=== PATIENT | female | born 1975 | race Caucasian/White ===

== ENCOUNTER 2019-10-24 17:01 | Outpatient (CLI) | payer OTHER, SELFPAY ==
--- NOTE | ~2019-10-24 | MM_ITS ---
EXAMINATION: MM screening grey BI w new HISTORY: Screening mammogram TECHNIQUE: Craniocaudal and mediolateral oblique 3-D tomosynthesis images were obtained and synthetic 2-D images were generated. CAD analysis was submitted and interpreted. COMPARISON: Comparison to multiple prior studies sequentially, with oldest reviewed study dated 07/28. BREAST PARENCHYMAL COMPOSITION: The breasts are heterogeneously dense, which may obscure small masses . FINDINGS: There is no evidence of suspicious mass, calcification, or architectural distortion to sugg est malignancy in either breast. There has been no suspicious interval change. IMPRESSION: 1. No mammographic evidence of malignancy. 2. Recommend routine screening mammography in one year. BI-RADS Category 1: Negative Reviewed, dictated and finalized at location A. ING BALL MARKER
== END 2019-10-24 17:02 | disposition home or self-care (01) ==
PROVIDERS: PCP Internal Medicine; Referring Provider Obstetrics & Gynecology; Visit Provider Physician Assistant
DX: Z12.31 Encounter for screening mammogram for malignant neoplasm of breast (principal)
CPT/HCPCS: 77063; 77067

== ENCOUNTER 2020-07-03 06:56 | Outpatient (NON) | payer OTHER, SELFPAY ==
[2020-07-03 20:28] LABS: SARS-CoV-2 RNA PCR Positive
== END 2020-07-03 06:57 ==
LOC: ANHCOVIDDT 06:56
PROVIDERS: PCP Internal Medicine; Visit Provider Physician Assistant
DX: U07.1 COVID-19 (principal)
CPT/HCPCS: 87635; C9803; U0003

== ENCOUNTER 2020-07-04 11:21 | Emergency (ER) | payer OTHER, SELFPAY ==
--- NOTE | ~2020-07-04 | XR_ITS ---
EXAMINATION: XR chest 1V portable INDICATION: Shortness of breath, COVID 19 positive TECHNIQUE: Portable AP chest at 1144 hours COMPARISON: 10/23/2018 FINDINGS: There are minimal airspace opacities of the lung bases. No pleural effusion or pneumothorax is identified. The cardiomediastinal silhouette is normal. There is thoracic dextrocurvature. IMPRESSION: 1. Minimal airspace opacities of the lung bases, consistent with atelectasis versus pneumonia. Reviewed, dictated and finalized at location A. A RELATIONS COORDINATOR IMPRESSION: 1. Minimal airspace opacities of the lung bases, consistent with atelectasis ve rsus pneumonia.
[2020-07-04 11:30] VITALS: PULSE 135; RESP 17; TEMP 38.6; O2SAT 95
--- NOTE | 2020-07-04 11:31 | ECG_ITS ---
Measurements Intervals [place] Rate: 105 P: 65 UT: 145 QRS: 63 QRSD: 78 T: 21 QT: 339 QTc: 449 Interpretive Statements SINUS TACHYCARDIA BORDERLINE ST-T WAVE ABNORMALITY- INFERIOR LEADS ABNORMAL ECG Electronically Signed On 07-04-2020 16:08:12 CRYSTAL CUTTER by Alvaro Barnett D.O.
[2020-07-04 11:43] VITALS: BP 133/99; PULSE 124; RESP 24; TEMP 38.6; O2SAT 95
[2020-07-04 11:50] LABS: Basophils Percent Auto 0.3 % (0.2-1.2); Hematocrit 40.9 % (37.0-47.0); Hemoglobin 13.5 g/dL (12.0-15.0); Immature Granulocyte Absolute 0.02 K/mm3 (0.00-0.031); Immature Granulocyte Percent A 0.3 % (0-0.5); Immature Platelet Fraction Pct 3.8 % (0.9-11.2); Lymphocytes Absolute Auto 0.49 K/mm3 (0.9-3.2); Lymphocytes Percent Auto 7.6 % (18.3-44.2); Mean Corpuscular Hemoglobin 31.1 pg (26-34); Mean Corpuscular Volume 94.2 fl (80-100); Mean Platelet Volume 10.7 fl (7.4-10.4); Monocytes Absolute Auto 0.5 K/mm3 (0.1-0.6); Monocytes Percent Auto 7.4 % (2.6-8.5); Neutrophils Absolute Auto 5.5 K/mm3 (1.3-6.7); Neutrophils Percent Auto 84.4 % (45.5-73.1); Platelet Count Result 129 k/mm3 (150-375); Red Blood Count 4.34 M/mm3 (4.2-5.4); Red Cell Distribution Width 12.8 % (11.5-14.5); White Blood Count 6.5 K/mm3 (4.5-10.0)
[2020-07-04 12:01] LABS: Prothrombin Time 13.5 Seconds (11.1-14.7)
[2020-07-04 12:02] LABS: Lactic Acid Reflex 1.6 mmol/L (0.7-2.1); Partial Thromboplastin Time 28.6 SECONDS (22.3-36.8)
[2020-07-04 12:12] VITALS: PULSE 122; RESP 22; O2SAT 98
[2020-07-04 12:14] LABS: Alanine Aminotransferase 19 U/L (4-35); Albumin Level 4.7 g/dL (3.5-5.1); Alkaline Phosphatase 79 U/L (38-126); Anion Gap 12 mmol/L (8-16); Aspartate Amino Transferase 38 U/L (14-36); Bilirubin,Total 1.8 mg/dL (0.2-1.3); Blood Urea Nitrogen 11 mg/dL (7-17); CRP 4.8 mg/dL (<1.0); Calcium 9.5 mg/dL (8.4-10.2); Carbon Dioxide 21 mmol/L (22-30); Chloride 103 mmol/L (98-107); Estimated CRCL calculation 81 ml/min; Estimated Glomerular Filt Rate > 60; Glucose 120 mg/dL (65-105); Potassium 4.3 mmol/L (3.4-5.0); Sodium 136 mmol/L (137-145)
[2020-07-04] MEDS: LIDOCAINE HCL 2% VISC SOLN 15 ML UDC PO (12:33)
[2020-07-04] MEDS: SODIUM CHLORIDE 0.9% IV 1,000 ML 999 ML IV CONT (12:33)
--- NOTE | 2020-07-04 12:45 | ED.GENADULT ---
HPI - General Adult General Chief complaint: Unspecified Stated complaint: high temp Time Seen by Provider: 07/04/20 12:03 History of Present Illness HPI narrative: Patient is a 45-year-old female who presents ER with fatigue and sore throat. Patient has recently been diagnosed with COVID-19. She began to feel ill on 06/30/20. She has been in contact with her primary care physician who is prescribed her cefuroxime. Patient has history of rheumatoid arthritis takes etanercept injections. She has been having fevers and chills as well as sinus congestion with profound sore throat and productive cough. She reports diffuse weakness. No known sick contacts. She is self isolating within her home. Related Data Home Medications Medication Instructions Recorded Confirmed etanercept 50 mg/mL (1 mL) 50 mg SUB-Q WEEKLY 08/08/19 08/13/19 subcutaneous syringe meloxicam 15 mg tablet 15 mg PO DAILY 08/08/19 08/13/19 ranitidine HCl 300 mg capsule 300 mg PO BID cap 08/08/19 08/13/19 sulfasalazine 500 mg 1.5 gm PO BID tablet 08/08/19 08/13/19 tablet,delayed release Allergies Allergy/AdvReac Type Severity Reaction Status Date / Time lisinopril Allergy Severe LIPS SWELL Verified 12/10/19 10:27 codeine Allergy Mild Vomiting Verified 12/10/19 10:27 Review of Systems Review of Systems: All systems reviewed & are unremarkable except as noted in HPI and below Constitutional: Constitutional: Reports chills, Reports fatigue and Reports fever(s) ENT: Reports nasal congestion and Reports sore throat Cardiovascular: Cardiovascular: Denies chest pain and Denies radiating jaw, neck or arm pain Respiratory: Respiratory: Reports change in phlegm color (Green), Reports cough and Reports dyspnea Musculoskeletal: Musculoskeletal: Reports myalgias PMFSH Past Medical History Medical History (Updated 07/04/20 @ 15:45 by Derek Gong MD) Gastro-esophageal reflux disease without esophagitis Hypothyroidism Pure hypercholesterolemia Rheumatoid arthritis Surgical History Surgical History H/O dilation and curettage History of endometrial ablation Family History Family History Mother Family history of heart disease in male family member before age 55 Other Diabetes mellitus Family history of arthritis Hypertension Social History Social History Smoking status: Never smoker Second hand tobacco smoke exposure: No Alcohol intake: never Gender identity (if verbalized by the patient): Female Exam Narrative: Exam Narrative: GENERAL: Uncomfotable-appearing, well-nourished, and in no acute distress. HEAD: Normocephalic, atraumatic. CHEST: Scattered rales with occasional cough. No respiratory distress. HEART: Tachycardic and regular. Normal peripheral pulses. ABDOMEN: Soft, nontender, nondistended. EXTREMITIES: Normal range of motion. No edema. SKIN: Warm, dry, no rash. NEURO: Alert and oriented x3. PSYCH: Normal mood and affect. Course Course Emergency Course: Hyrated. Sore throat improved with viscous lidocaine. No hypoxia. D/c. Vital Signs Vital signs: Vital Signs Temperature 101.4 F H 07/04/20 11:30 Pulse Rate 135 H 07/04/20 11:30 Respiratory Rate 17 07/04/20 11:30 Pulse Oximetry 95 07/04/20 11:30 Temperature 101.4 F H 07/04/20 11:43 Pulse Rate 115 H 07/04/20 13:46 Respiratory Rate 22 H 07/04/20 13:46 Blood Pressure 128/68 07/04/20 13:46 Pulse Oximetry 97 07/04/20 13:46 Medical Decision Making Vital Signs Vital Signs: Vital Signs Temperature 101.4 F H 07/04/20 11:30 Pulse Rate 135 H 07/04/20 11:30 Respiratory Rate 17 07/04/20 11:30 Pulse Oximetry 95 07/04/20 11:30 Temperature 101.4 F H 07/04/20 11:43 Pulse Rate 115 H 07/04/20 13:46 Respiratory Rate 22 H 07/04/20 13:46 Blood Pr
[2020-07-04 13:46] VITALS: BP 128/68; PULSE 115; RESP 22; O2SAT 97
[2020-07-04 16:11] VITALS: BP 124/68; PULSE 101; RESP 17; O2SAT 98
== END 2020-07-04 16:15 | disposition home or self-care (01) ==
PROVIDERS: Emergency Provider Emergency Medicine; PCP Internal Medicine
DX: U07.1 COVID-19 (principal); M06.9 Rheumatoid arthritis, unspecified; K21.9 Gastro-esophageal reflux disease without esophagitis; E03.9 Hypothyroidism, unspecified; E78.00 Pure hypercholesterolemia, unspecified; R00.0 Tachycardia, unspecified; R91.8 Other nonspecific abnormal finding of lung field
CPT/HCPCS: 36415; 71045; 80053; 83605; 85025; 85055; 85610; 85730; 86140; 87040; 93005; 96374; 99284; J0131; J7030

== ENCOUNTER 2020-08-05 13:35 | Outpatient (CLI) | payer OTHER, SELFPAY ==
[2020-08-05 14:05] LABS: Add Urine Microscopic? NO; Appearance Urine Clear (Clear); Bilirubin Urine Negative (Negative); Blood Urine Negative (Negative); Color Urine Straw (Yellow); Glucose Urine UA Negative (Negative); Ketones Urine Negative (Negative); Leukocyte Esterase Ur Negative LEU/UL (Negative); Nitrate Urine Negative (Negative); Protein Urine Negative (Negative); Urobilinogen Urine Negative mg/dL (<2.0)
== END 2020-08-05 13:36 | disposition home or self-care (01) ==
PROVIDERS: PCP Internal Medicine; Visit Provider Internal Medicine
DX: R10.9 Unspecified abdominal pain (principal)
CPT/HCPCS: 81003

== ENCOUNTER 2020-10-28 15:04 | Outpatient (CLI) | payer OTHER, SELFPAY ==
--- NOTE | ~2020-10-28 | MM_ITS ---
EXAMINATION: MM screening grey BI w new HISTORY: Screening TECHNIQUE: Craniocaudal and mediolateral oblique 3-D tomosynthesis images were obtained and synthetic 2-D images were generated. CAD analysis was submitted and interpreted. COMPARISON: Comparison to multiple prior studies sequentially, with oldest reviewed study dated 03/2016. BREAST PARENCHYMAL COMPOSITION: The breasts are heterogeneously dense, which may obscure small masses . FINDINGS: There is no evidence of suspicious mass, calcification, or architectural distortion to sugg est malignancy in either breast. There has been no suspicious interval change. IMPRESSION: 1. No mammographic evidence of malignancy. 2. Recommend routine screening mammography in one year. BI-RADS Category 1: Negative Reviewed, dictated and finalized at location A. ICATION SPEC
== END 2020-10-28 15:05 | disposition home or self-care (01) ==
LOC: ANHIMG 15:08
PROVIDERS: PCP Internal Medicine; Visit Provider Internal Medicine
DX: Z12.31 Encounter for screening mammogram for malignant neoplasm of breast (principal)
CPT/HCPCS: 77063; 77067

== ENCOUNTER 2021-08-03 14:25 | Outpatient (CLI) | payer OTHER, SELFPAY ==
--- NOTE | ~2021-08-03 | XR_ITS ---
EXAMINATION: XR chest 2V DATE: 08/03/2021 14:43 INDICATION: Rheumatoid arthritis with negative rheumatoid factor TECHNIQUE: PA and lateral views of the chest were obtained. COMPARISON: Chest radiograph dated 07/14/2020 FINDINGS: The lungs remain clear with no focal airspace opacities, pulmonary edema, pleural effusion or pneumot horax. The cardiomediastinal silhouette is normal. 25 degrees thoracic dextroscoliosis. Cholecystecto my clips in right upper quadrant. IMPRESSION: 1. No acute cardiopulmonary disease. Reviewed, dictated and finalized at location B. MONIA REFRIGERATION WORKER
== END 2021-08-03 14:26 | disposition home or self-care (01) ==
LOC: ANHIMG 14:32
PROVIDERS: PCP Internal Medicine; Visit Provider Internal Medicine Rheumatology
DX: M06.9 Rheumatoid arthritis, unspecified (principal); Z51.81 Encounter for therapeutic drug level monitoring; Z79.899 Other long term (current) drug therapy; M41.9 Scoliosis, unspecified
CPT/HCPCS: 71046

== ENCOUNTER → 2021-08-31 10:33 | Outpatient (CLI) | payer OTHER, SELFPAY ==
[2021-08-31 20:09] LABS: SARS-CoV-2 RNA PCR Positive
== END ==
PROVIDERS: PCP Internal Medicine; Visit Provider Internal Medicine
DX: U07.1 COVID-19 (principal)
CPT/HCPCS: C9803; U0003; U0005

== ENCOUNTER 2021-11-23 08:37 | Outpatient (CLI) | payer OTHER, SELFPAY ==
--- NOTE | ~2021-11-23 | MM_ITS ---
EXAMINATION: MM screening [facility] BI w new HISTORY: Screening mammogram TECHNIQUE: Craniocaudal and mediolateral oblique 3-D tomosynthesis images were obtained and synthetic 2-D images were generated. CAD analysis was submitted and interpreted. COMPARISON: 10/28/2020, 10/24/2019, 09/26/2018 BREAST PARENCHYMAL COMPOSITION: The breasts are heterogeneously dense, which may obscure small masses . FINDINGS: There is no suspicious mass, calcification, or architectural distortion to suggest malignan cy in either breast. There has been no suspicious interval change. IMPRESSION: 1. No mammographic evidence of malignancy. 2. Recommend routine screening mammography in one year. BI-RADS Category 1: Negative Reviewed, dictated and finalized at location A.
== END 2021-11-23 08:38 | disposition home or self-care (01) ==
LOC: ANHIMG 08:40
PROVIDERS: PCP Internal Medicine; Visit Provider Internal Medicine
DX: Z12.31 Encounter for screening mammogram for malignant neoplasm of breast (principal)
CPT/HCPCS: 77063; 77067

== ENCOUNTER 2022-04-11 17:10 | Outpatient (CLI) | payer OTHER, SELFPAY ==
--- NOTE | ~2022-04-11 | XR_ITS ---
EXAMINATION: XR hand LT 2V, XR hand RT 2V DATE: 04/11/2022 17:37 INDICATION: Rheumatoid arthritis TECHNIQUE: 1. Posteroanterior and lateral views of the left hand were obtained. 2. Posteroanterior and lateral views of the right hand were obtained. COMPARISON: None. FINDINGS: No fractures. Relatively symmetric appearance at the radial aspect of the bilateral carpi with promin ent erosions at the base of the first metacarpals and at the trapezium with dorsal and proximal sublu xation of the first metacarpals. Additional erosions are seen at the distal pole of the right scaphoi d and at the left radial styloid process. Osteoarthritis at the right midcarpal joint with moderate t o severe joint space narrowing at the lunocapitate articulation. There is a mild polyarticular osteoa rthritis at the left radiocarpal, right distal radioulnar, and multiple bilateral predominantly dista l interphalangeal joints. Additional small lucencies with thin sclerotic margins which could represen t degenerative subchondral cysts or additional chronic erosions at the head of the left second metaca rpal and head and base of the right second proximal phalanx. IMPRESSION: 1. Likely symmetric advanced arthritis at the first carpal metacarpal joints with prominent erosions of the multiple sites the joint space with a few additional scattered erosions as detailed above sugg esting an inflammatory arthritis including rheumatoid arthritis and with secondary dorsal/proximal whitman bluxation of the bilateral first metacarpals. 2. Additional scattered polyarticular osteoarthritis at the bilateral hands and wrists, generally mil d but severe at the lunocapitate articulation of the right midcarpal joint. Reviewed, dictated and finalized at location A. IMPRESSION: 1. Likely symmetric advanced arthritis at the first carpal metacarpal joints wi th prominent erosions of the multiple sites the joint space with a few addition al scattered erosions as detailed above suggesting an inflammatory arthritis in cluding rheumatoid arthritis and with secondary dorsal/proximal subluxation of the bilateral first metacarpals. 2. Additional scattered polyarticular osteoarthritis at the bilateral hands and wrists, generally mild but severe at the lunocapitate articulation of the righ t midcarpal joint.
--- NOTE | ~2022-04-11 | XR_ITS ---
EXAMINATION:XR_[id number]_CR DATE: 04/11/2022 17:37 INDICATION: Rheumatoid arthritis TECHNIQUE: AP, lateral, and odontoid views of the cervical spine are provided. COMPARISON: 03/17/2015 FINDINGS: There are 2 mm of anterolisthesis of C3 on C4 and C4 on C5 and 2 mm of retrolisthesis of C5 on C6. The odontoid is intact. No fracture is identified. The vertebral body heights are normal. The re is advanced loss of intervertebral disc space height at C5-6 and moderate loss of intervertebral d isc space height at C6-7. Small degenerative osteophytes project from the anterior endplates of multi ple vertebral bodies. There is moderate facet and uncovertebral joint arthritis. Prevertebral soft ti ssues are normal. IMPRESSION: 1. Interval development of cervical arthritis which could be related to rheumatoid arthritis. Reviewed, dictated and finalized at location A. IMPRESSION: 1. Interval development of cervical arthritis which could be related to rheumat oid arthritis.
== END 2022-04-11 17:11 | disposition home or self-care (01) ==
PROVIDERS: PCP Internal Medicine; Visit Provider Internal Medicine Rheumatology
DX: M06.09 Rheumatoid arthritis without rheumatoid factor, multiple sites (principal); Z51.81 Encounter for therapeutic drug level monitoring; Z79.899 Other long term (current) drug therapy
CPT/HCPCS: 72040; 73120

== ENCOUNTER 2022-11-29 12:01 | Outpatient (CLI) | payer OTHER, SELFPAY ==
[2022-11-29 12:55] LABS: Influenza A QL RT-PCR Negative (Negative); Influenza B QL RT-PCR Negative (Negative); SARS-CoV-2 RNA PCR Negative
== END 2022-11-29 12:02 | disposition home or self-care (01) ==
LOC: ANHLAB 12:02
PROVIDERS: PCP Internal Medicine; Visit Provider Internal Medicine
DX: R50.9 Fever, unspecified (principal); Z20.822 Contact with and (suspected) exposure to COVID-19
CPT/HCPCS: 87636

== ENCOUNTER 2022-11-30 08:44 | Outpatient (CLI) | payer OTHER, SELFPAY ==
--- NOTE | ~2022-11-30 | MM_ITS ---
EXAMINATION: MM screening grey BI w new HISTORY: Screening mammogram TECHNIQUE: Craniocaudal and mediolateral oblique 3-D tomosynthesis images were obtained and synthetic 2-D images were generated. CAD analysis was submitted and interpreted. COMPARISON: 11/23/2021, 10/28/2020, 10/24/2019 bilateral screening mammogram examinations BREAST PARENCHYMAL COMPOSITION: The breasts are heterogeneously dense, which may obscure small masses . FINDINGS: There is no evidence of suspicious mass, calcification, or architectural distortion to sugg est malignancy in either breast. There has been no suspicious interval change. IMPRESSION: 1. No mammographic evidence of malignancy. 2. Recommend routine screening mammography in one year. BI-RADS Category 1: Negative Reviewed, dictated and finalized at location A.
== END 2022-11-30 08:45 | disposition home or self-care (01) ==
LOC: ANHIMG 08:46
PROVIDERS: PCP Internal Medicine; Visit Provider Internal Medicine
DX: Z12.31 Encounter for screening mammogram for malignant neoplasm of breast (principal)
CPT/HCPCS: 77063; 77067

== ENCOUNTER 2022-12-05 11:09 | Outpatient (CLI) | payer OTHER, SELFPAY ==
--- NOTE | ~2022-12-05 | XR_ITS ---
XR nasal bones min 3V 12/05/2022 11:26 INDICATION: Injury to nose PROCEDURE: 3 views of the nasal COMPARISON: No prior studies for comparison. FINDINGS: Fracture, dislocation or subluxation is not identified. There is mild mucosal thickening of the left maxillary sinus, suspicious for sinusitis. The soft tissues appear within normal limits. N o foreign bodies are identified. IMPRESSION: 1: No acute fracture. 2: Mild left maxillary sinus disease. Reviewed, dictated and finalized at location B.
== END 2022-12-05 11:10 | disposition home or self-care (01) ==
PROVIDERS: PCP Internal Medicine; Visit Provider Physician Assistant
DX: S09.92XA Unspecified injury of nose, initial encounter (principal); W19.XXXA Unspecified fall, initial encounter; J32.0 Chronic maxillary sinusitis
CPT/HCPCS: 70160

== ENCOUNTER 2023-12-07 09:54 | Outpatient (CLI) | payer OTHER, SELFPAY ==
--- NOTE | ~2023-12-07 | MM_ITS ---
EXAMINATION: MM screening grey BI w new HISTORY: Screening TECHNIQUE: Craniocaudal and mediolateral oblique 3-D tomosynthesis images were obtained and synthetic 2-D images were generated. CAD analysis was submitted and interpreted. COMPARISON: Comparison to multiple prior studies sequentially, with oldest reviewed study dated 09/21. BREAST PARENCHYMAL COMPOSITION: Dense: The breasts are heterogeneously dense, which may obscure small masses FINDINGS: There is no evidence of suspicious mass, calcification, or architectural distortion to sugg est malignancy in either breast. There has been no suspicious interval change. IMPRESSION: 1. No mammographic evidence of malignancy. 2. Recommend routine screening mammography in one year. BI-RADS Category 1: Negative Reviewed, dictated and finalized at location A.
== END 2023-12-07 09:55 | disposition home or self-care (01) ==
PROVIDERS: PCP Internal Medicine; Visit Provider Physician Assistant
DX: Z12.31 Encounter for screening mammogram for malignant neoplasm of breast (principal)
CPT/HCPCS: 77063; 77067

== ENCOUNTER 2023-12-20 08:03 | Outpatient (CLI) | payer OTHER, SELFPAY ==
--- NOTE | ~2023-12-20 | US_ITS ---
US breast BI complete DATE: 12/20/2023 08:56 INDICATION: Heterogeneously dense breast noted on recent mammogram, which may obscure small masses. TECHNIQUE: Real-time imaging of both complete breasts including all 4 quadrants and subareolar areas COMPARISON: December 07, 2023 bilateral screening mammogram FINDINGS: No suspicious mass or shadowing, cyst or other significant sonographic abnormality is detec nilsa. IMPRESSION: BI-RADS Category 1: Negative Recommendation: Routine annual mammographic screening Reviewed, dictated and finalized at Location A. Reviewed, dictated and finalized at location A.
== END 2023-12-20 08:04 | disposition home or self-care (01) ==
PROVIDERS: PCP Internal Medicine; Visit Provider Physician Assistant
DX: R92.30 Dense breasts, unspecified (principal)
CPT/HCPCS: 76641

== ENCOUNTER 2024-02-15 07:44 | Outpatient (CLI) | payer OTHER, SELFPAY ==
--- NOTE | ~2024-02-15 | CT_ITS ---
EXAMINATION: CT abdomen pelvis w con DATE: 02/15/2024 08:02 INDICATION: Unspecified abdominal pain. TECHNIQUE: Computed tomography (CT) of the abdomen and pelvis was performed with 100 mL Omnipaque 350 intravenous contrast. Automated exposure control and iterative reconstruction technique were employe d. The dose-length product was 308.62 mGy-cm. COMPARISON: CT abdomen 02/28/2008 FINDINGS: The visualized portions of the lung bases demonstrate mild atelectasis. No pleural effusion . The heart size is normal. No pericardial effusion. The liver is normal. There are changes of cholec ystectomy. The spleen, pancreas, adrenal glands, and kidneys are normal. There are no dilated loops o f bowel. The appendix is normal. There are no pathologically enlarged lymph nodes. There is physiolog ic fluid in the pelvis. There is thoracolumbar levoscoliosis and mild spondylosis. There is mild bindery technician daryl anterior wedging of T12 and L1 vertebral bodies. IMPRESSION: 1. No etiology for the patient's symptoms. Reviewed, dictated and finalized at location A.
== END 2024-02-15 07:45 | disposition home or self-care (01) ==
PROVIDERS: PCP Internal Medicine; Visit Provider Physician Assistant
DX: R10.9 Unspecified abdominal pain (principal); G89.29 Other chronic pain
CPT/HCPCS: 74177; Q9967

== ENCOUNTER 2024-10-30 15:12 | Outpatient (CLI) | payer OTHER, SELFPAY ==
--- NOTE | ~2024-10-30 | US_ITS ---
EXAM: Focused ultrasound examination of the soft tissues of the right popliteal fossa HISTORY: M25.561 - Pain in right knee TECHNIQUE: Sonographic evaluation of the soft tissues of the right popliteal fossa were performed ass essing grayscale appearance and color Doppler flow. COMPARISON: None. FINDINGS: Sonographic evaluation of the soft tissues of the right popliteal fossa demonstrate a complex fluid c ollection measuring 7.3 cm in cranial to caudal dimension An additional thick walled complex fluid collection extends caudally to the level of the upper calf a nd is located deep to the first collection. Anterior the right knee, extending superiorly and laterally is an additional thick walled fluid colle ction measuring 7.6 cm in craniocaudal dimension. Sonographic evaluation of the remainder of the soft tissues of the right knee demonstrate benign fibr ofatty and fibromuscular elements without a cystic or solid lesion of concern. IMPRESSION: Findings posterior to the right knee consistent with a complex likely ruptured Brock's cyst. Findings at the level of the right anterior knee suggesting a large suprapatellar joint effusion, as detailed above. Reviewed, dictated and finalized at location A. E IN THEATER ATTENDANT IMPRESSION: Findings posterior to the right knee consistent with a complex likely ruptured Brock's cyst. Findings at the level of the right anterior knee suggesting a lar ge suprapatellar joint effusion, as detailed above.
--- NOTE | ~2024-10-30 | US_ITS ---
RIGHT LOWER EXTREMITY VENOUS ULTRASOUND Ordering provider: Waldemar Fulton DO History: . M79.89 - Other specified soft tissue disorders . Comparison: None. FINDINGS: --COMMON FEMORAL: Patent and free of thrombus. Normal compressibility, phasic flow and augmentation. --PROXIMAL SUPERFICIAL FEMORAL: Patent and free of thrombus. Normal compressibility, phasic flow and augmentation. --DISTAL SUPERFICIAL FEMORAL: Patent and free of thrombus. Normal compressibility, phasic flow and au gmentation. --POPLITEAL: Patent and free of thrombus. Normal compressibility, phasic flow and augmentation. --POSTERIOR TIBIAL: Patent and free of thrombus. Normal compressibility, phasic flow and augmentation . IMPRESSION: Negative right lower extremity venous US. No deep vein thrombosis. Reviewed, dictated and finalized at location A. ROL INSPECTOR
--- OUTSIDE RECORDS SUMMARY | 2024-10-30 16:56 | XMS_ITS | Clinical Summary ---
Author Organization [facility] Address [address] [place] [address] Phone Care Team Providers Care Lunch Cook Name Role Phone RODERICK ALVAREZ DO Primary Care Provider [phone] JESUS ALBERTO CHINCHILLA, PAULY Melendrez Unavailable [phone] Reason for Visit and Chief Complaint gynecologic annual exam, gynecologic procedure : endometrial biopsy - The Chief Complaint is: emb for menorrhagia Problems Includes: Problems addressed during this encounter and other active Problems Current Visit Onset Date Resolved Date Provider Conditio n Status Anemia 01/25/2019 YANY DANIELLE WHNP-BC Active Last Documented On 01/25/2019 10:52AM ; [facility] Note: secondary to menorrhagia - -2018 Past Visits Onset Date Resolved Date Provider Condition Status Rheumatoid Arthritis 07/08/2016 YANY Cross HNP-BC Active Last Documented On 6 9:01AM ; [facility] Hyperlipidemia 06/27/2014 YANY DANIELLE WHNP-BC Active Last Documented On 4 9:59AM ; [facility] Note: diet controlled Hypothyroidism 04/25/2011 YANY DANIELLE WHNP-BC Active Last Documented On 1 7:17AM ; [facility] Plan of Treatment - Clinical summary provided to patient - Last Documented On 01/25/2019 11:08AM ; [facility] Instructions to patient Instructions for patient : p atient is to keep a menstrual diary to help with further evaluation and treatment Last Documented On 9 10:49AM ; [facility] Education and Decision Aids were provided during visit for: INFORMED CONSENT DISCUSSION: Endometrial biopsy was discussed in detail including discomfort, insufficient specimen with need to repeat test, and rare incidence of uterine perforation. Patient expressed understanding of the above and consented to the procedure Last Documented On 9 10:49AM ; [facility] Assessments Includes: Assessments from this encounter Findings - Menorrhagia - Last Documented On 01/25/2019 11:08AM ; [facility] Instructions Includes: Instructions from this encounter Instructions to patient Instructions for patient : p atient is to keep a menstrual diary to help with further evaluation and treatment Last Documented On 9 10:49AM ; [facility] Education and Decision Aids were provided during visit for: INFORMED CONSENT DISCUSSION: Endometrial biopsy was discussed in detail including discomfort, insufficient specimen with need to repeat test, and rare incidence of uterine perforation. Patient expressed understanding of the above and consented to the procedure Last Documented On 9 10:49AM ; [facility] Medical Equipment - Implanted Devices Includes: Current Devices No Medical Equipment Recorded Medications Includes: Medications discussed during this encounter and other current Medications Current Medications (continue as prescribed) Lisinopril 10MG Oral Tablet 07/27/2018 Provider: Diagnosis: Last Documented On 07/27/2018 8:50AM By DEEPAK NELSON ; [facility] PredniSONE 5MG Oral Tablet 07/27/2018 Provider: Diagnosis: Last Documented On 07/27/2018 8:51AM By DEEPAK NELSON ; [facility] Arava 10MG Oral Tablet 07/14/2017 Provider: Diagnosis: Last Documented On 07/14/2017 9:21AM By DEEPAK NELSON ; [facility] Levothyroxine Sodium 100 MCG Tablet 07/08/2016 Provi kymberly: Diagnosis: Last Documented On 07/08/2016 8:57AM By DEEPAK NELSON ; [facility] Meloxicam 15 MG Tablet 07/08/2016 Provider: Diagnosis: Last Documented On 07/08/2016 8:58AM By DEEPAK NELSON ; [facility] Hydroxychloroquine Sulfate 200 MG Tablet 07/08/2016 Provider: Diagnosis: Last Documented On 07/08/2016 8:59AM By DEEPAK NELSON ; [facility] Singulair 10 MG Tablet 07/03/2015 Provider: Diagnosis: Last Documented On 07/03/2015 8:59AM By DEEPAK NELSON ; [facility] Fluticasone Propionate 50 MCG/ACT NA SUSP 06/21/2013 Provider: Diagnosis: Last Documented On 06/21/2013 10:25AM By MAYA WAHL LPN ; [facility] raNITIdine HCl 300 MG OR CAPS 04/25/2011 Provider: Diagnosis: Last Documented On 04/25/2011 9:14AM By DEEPAK NELSON ; [facility] Past Medications on file Diflucan 150 MG OR TABS 06/21/2013 - 07/21/2013 Provider: YANY VICTORIA Diagnosis: CANDIDAL VULVOVA GINITIS one po x 1 and rpt. in 3 days Last Documented On 3 10:54AM By YANY VICTORIA ; [facility] Macrobid 100 MG OR CAPS 06/21/2013 - 06/24/2013 Provid er: YANY VICTORIA Diagnosis: HEMATURIA NOS Last Documented On 3 10:53AM By YANY VICTORIA ; [facility] Diflucan 150 MG OR TABS 05/14/2012 - 06/13/2012 Provid er: YANY VICTORIA Diagnosis: take one dose po x 1 and may rpt. in 3 days. Last Documented On 2 10:01AM By YANY VICTORIA ; [facility] Ortho-Cyclen (28) 0.25-35 MG-MCG OR TABS 04/25/2011 - 04/19/2012 Provider: YANY CERVANTES Diagnosis: Last Documented On 1 9:23AM By YANY VICTORIA ; [facility] Medications Administered Includes: Administered Medications from this encounter No Administered Medications Recorded Vital Signs Includes: Vital Signs from this encounter Vital Name 01/25/2019 10:51A 01/25/2019 10: 50A Blood Pressure Sitting L 120/70 BP Cuff Size Regular Height (in) 64 64 Weight (lb) 108 Body Mass Index (kg/m2) 18.5 Body Surface Area (m2) 1.5 Last Documented: On 01/25/2019 10:55A M ; [facility] On 01/25/2019 10:50AM ; [facility] Results Includes: Results discussed during this encounter CBC (INCLUDES DIFF/PLT) [employer] Ordered by YANY VICTORIA on 12/26 Collected: 01/11/2019 Reported: 01/13/20 19 03:45 Last Documented On 9 9:24AM ; [facility] Reviewed by YANY CERVANTES on 01/14/2019; All test results are final unless otherwise noted. WHITE BLOOD CELL COUNT 4.1 Thousand/uL (3.8-10.8) N (Normal) Last Documented On 9 9:24AM ; [facility] RED BLOOD CELL COUNT 3.06 Million/uL (3.80-5.10) L (Low) Last Documented On 9 9:24AM ; [facility] HEMOGLOBIN 9.7 g/dL (11.7-15.5) L (Low) Last Documented On 9 9:24AM ; [facility] HEMATOCRIT 30.6 % (35.0-45.0) L (Low) Last Documented On 9 9:24AM ; [facility] MCV 100.0 fL (80.0-100.0) N (Normal) Last Documented On 9 9:24AM ; [facility] MCH 31.7 pg (27.0-33.0) N (Normal) Last Documented On 9 9:24AM ; [facility] MCHC 31.7 g/dL (32.0-36.0) L (Low) Last Documented On 9 9:24AM ; [facility] RDW 11.7 % (11.0-15.0) N (Normal) Last Documented On 9 9:24AM ; [facility] PLATELET COUNT 189 Thousand/uL (140-400) N (Normal) Last Documented On 9 9:24AM ; [facility] NEUTROPHILS 47.7 % N (Normal) Last Documented On 9 9:24AM ; [facility] ABSOLUTE NEUTROPHILS 1956 cells/uL (7289-3761) N (Normal) Last Documented On 9 9:24AM ; [facility] LYMPHOCYTES 34.0 % N (Normal) Last Documented On 9 9:24AM ; [facility] ABSOLUTE LYMPHOCYTES 1394 cells/uL (850-3900) N (Normal) Last Documented On 9 9:24AM ; [facility] MONOCYTES 11.9 % N (Normal) Last Documented On 9 9:24AM ; [facility] ABSOLUTE MONOCYTES 488 cells/uL (200-950) N (Normal) Last Documented On 9 9:24AM ; [facility] EOSINOPHILS 4.9 % N (Normal) Last Documented On 9 9:24AM ; [facility] ABSOLUTE EOSINOPHILS 201 cells/uL (15-500) N (Normal) Last Documented On 9 9:24AM ; [facility] BASOPHILS 1.5 % N (Normal) Last Documented On 9 9:24AM ; [facility] ABSOLUTE BASOPHILS 62 cells/uL (0-200) N (Normal) Last Documented On 9 9:24AM ; [facility] MPV 10.4 fL (7.5-12.5) N (Normal) Last Documented On 9 9:24AM ; [facility] T4, FREE [facility] Ordered by YANY VICTORIA on 12/26 Collected: 01/11/2019 Reported: 01/13/20 19 03:45 Last Documented On 9 9:24AM ; [facility] Reviewed by YANY CERVANTES on 01/14/2019; All test results are final unless otherwise noted. T4, FREE 1.5 ng/dL (0.8-1.8) N (Normal) Last Documented On 9 9:24AM ; [facility] TSH [facility] Ordered by YANY VICTORIA on 12/26 Collected: 01/11/2019 Reported: 01/13/20 19 03:45 Last Documented On 9 9:24AM ; [facility] Reviewed by YANY CERVANTES on 01/14/2019; All test results are final unless otherwise noted. TSH 1.55 mIU/L N (Normal) Last Documented On 01/14/2019 9:24AM ; [facility] Note: Reference Range > or = 20 Years 0.40-4.50 Ranges First trimester 0.26-2.66 Second trimester 0.55-2.73 Third trimester 0.43-2.91 History of Present Illness Includes: History of Present Illness from this encounter SAMMI MUSTAFA is a 43 year old female. - Medication list reviewed - PRIMARY CARE PROVIDER : Dr Alvarez Social History Description Last Updated Smoking status : Never smoker 01/25/2019 Last Documented On 9 11:08AM ; [facility] The racial background 01/25/2019 Last Documented On 9 11:08AM ; [facility] The racial background is 01/25 Last Documented On 9 11:08AM ; [facility] Procedures and Surgical History Includes: Procedures from this encounter Procedures Code Diagnosis Performing Provider Service Location Service Date endometrial biopsy was performed ~Procedure Note: Done without complications.~Amt of Tissue: Adequate~Uterine Sound Measurement: Approximately 8 cm after single tooth tenaculum applied to anterior cervix. Excellent hemostasis with silver nitrate x 2. Tolerated well 02116 Last Documented On 9 11:07AM ; [facility] a transvaginal [place] the [place] [address] Last Documented On 9 10:48AM ; [facility] no uterine enlargement Last Documented On 9 10:48AM ; [facility] mass lesion of the uterus + fibroid- 2.2 cm at largest dimension Last Documented On 9 10:48AM ; [facility] a [place]vag[place] [id number] Last Documented On 9 10:48AM ; [facility] no enlargement of the right ovary Last Documented On 9 10:48AM ; [facility] no enlargement of the left ovary Last Documented On 9 10:48AM ; [facility] no mass on the right ovary Last Documented On 9 10:48AM ; [facility] no mass on the left ovary Last Documented On 9 10:48AM ; [facility] endometrium thickness 7.0 mm Last Documented On 9 10:49AM ; [facility] the cul-de-sac had no fluid present t/v pelvic u/s done 01-17-19 Last Documented On 9 10:48AM ; [facility] Surgical History Last Updated Surgical / procedural history c/s 2015 Last Documented On 9 10:50AM ; [facility] Dilation + Curettage 06/21/2013 Last Documented On 9 10:50AM ; [facility] History of cholecystectomy 06/21/2013 Last Documented On 9 10:50AM ; [facility] Medical History Includes: Medical History addressed during this encounter Description Last Updated LMP: 12/27/2018 01/25/2019 Last Documented On 9 11:08AM ; [facility] Sexually active 01/25/2019 Last Documented On 9 11:08AM ; [facility] Contraception: vasectomy 01/25/2019 Last Documented On 9 11:08AM ; [facility] History of Pap smear done 07/27/2018 Last Documented On 9 11:08AM ; [facility] History of screening mammogram was perfo rmed 09/26/2018 01/25/2019 Last Documented On 9 11:08AM ; [facility] Result: normal 01/25/2019 Last Documented On 9 11:08AM ; [facility] Result: normal 01/25/2019 Last Documented On 9 11:08AM ; [facility] History of benign essential hypertension 07/27/2018 Last Documented On 9 10:50AM ; [facility] History of hypothyroidism 07/27/2018 Last Documented On 9 10:50AM ; [facility] 1 miscarriage(s) 06/21/2013 Last Documented On 9 10:50AM ; [facility] Aborta 1 06/21/2013 Last Documented On 9 10:50AM ; [facility] 2 06/21/2013 Last Documented On 9 10:50AM ; [facility] Para 1 06/21/2013 Last Documented On 9 10:50AM ; [facility] Thyroid disease 06/21/2013 Last Documented On 9 10:50AM ; [facility] Family History Includes: Family History addressed during this encounter Description Last Updated Spouse name: Rehan Mesa-boyfriend [id number] Last Documented On 9 10:50AM ; [facility] Family history of diabetes mellitus lots of people in her family 06/21/2013 Last Documented On 9 10:50AM ; [facility] Family history of heart disease on both sides 06/21/2013 Last Documented On 9 10:50AM ; [facility] Family history of malignant female breast neoplasm paternal grandmother passed at 89 from this 06/21/2013 Last Documented On 9 10:50AM ; [facility] Family history of hypercholesterolemia b oth sides 04/25/2011 Last Documented On 9 10:50AM ; [facility] Family history of hypertension both side s 04/25/2011 Last Documented On 9 10:50AM ; [facility] Family history of Cancer GRANDMOTHER JASON AST CANCER 09/11/2009 Last Documented On 9 10:50AM ; [facility] Family history of Diabetes 2 UNCLES AND FATHER 09/11/2009 Last Documented On 9 10:50AM ; [facility] Family medical history of Breast problem s 09/11/2009 Last Documented On 9 10:50AM ; [facility] Family medical history of high blood pre ssure MOTHER,FATHER,SISTER 09/11/2009 Last Documented On 9 10:50AM ; [facility] Family medical history of High Cholester ol MOTHER 09/11/2009 Last Documented On 9 10:50AM ; [facility] Review of Systems Includes: Review of Systems from this encounter No Review of Systems Recorded Mental Status Includes: Mental Status from this encounter No Mental Status Recorded Functional Status Includes: Functional Status from this encounter No Functional Status Recorded Physical Exam Includes: Physical Exam from this encounter Allergies Includes: Active Allergies Substance Type Reaction Onset Date Resolved Date Statu s Codeine Allergy 09/11/2009 Active Last Documented On 7 9:20AM ; [facility] Encounters Encounter Provider Location Date Check-In Time Check-Out Time Diagnosis ENDOMETRIAL BIOPSY YANY DANIELLE [facility] RADIATOR CLEANER 01/26/20 19 10:47AM 11:27AM Menorrhagia Insurance Includes: Active Insurance Policies Plan Name Member ID Group # Subscriber Relationship Effect ilan Dates - [facility] CLAIMS DEPT [id number] KORI [place] Clinical Notes Includes: Clinical Notes from this encounter No Clinical Notes Recorded
--- OUTSIDE RECORDS SUMMARY | 2024-10-30 16:56 | XMS_ITS ---
Care Plan - [facility] Created on: October 30, 2024 KORI MUSTAFA : 1975 Sex: Female Author Organization [facility] Address [address] [place] [address] Phone Care Team Providers Care Hat Cutter Name Role Phone RODERICK AMARO DO Primary Care Provider [phone] JESUS ALBERTO CHINCHILLA, PAULY Melendrez Unavailable [phone]
--- OUTSIDE RECORDS SUMMARY | 2024-10-30 16:56 | XMS_ITS | Clinical Summary ---
Author Organization [facility] Address [address] [place] [address] Phone Care Team Providers Care Group Home Worker Name Role Phone RODERICK AMARO DO Primary Care Provider [phone] JESUS ALBERTO CHINCHILLA, PAULY Melendrez Unavailable [phone] Reason for Visit and Chief Complaint ENDOMETRIAL BIOPSY Problems Includes: Problems addressed during this encounter and other active Problems All Visits Onset Date Resolved Date Provider Condition S tatus Anemia 01/25/2019 YANY DANIELLE WHNP-BC Active Last Documented On 01/25/2019 10:52AM ; [facility] Note: secondary to menorrhagia - -2018 Rheumatoid Arthritis 07/08/2016 YANY DANIELLE WHNP-BC Active Last Documented On 6 9:01AM ; [facility] Hyperlipidemia 06/27/2014 YANY DANIELLE WHNP-BC Active Last Documented On 4 9:59AM ; [facility] Note: diet controlled Hypothyroidism 04/25/2011 YANY DANIELLE WHNP-BC Active Last Documented On 1 7:17AM ; [facility] Plan of Treatment No Plan of Treatment Recorded Assessments Includes: Assessments from this encounter No Assessments Recorded Medical Equipment - Implanted Devices Includes: Current Devices No Medical Equipment Recorded Medications Includes: Medications discussed during this encounter and other current Medications Current Medications (continue as prescribed) Lisinopril 10MG Oral Tablet 07/27/2018 Provider: Diagnosis: Last Documented On 07/27/2018 8:50AM By DEEPAK NELSON ; [facility] PredniSONE 5MG Oral Tablet 07/27/2018 Provider: Diagnosis: Last Documented On 07/27/2018 8:51AM By DEEPAK NELSON ; [facility] Arava 10MG Oral Tablet 07/14/2017 Provider: Diagnosis: Last Documented On 07/14/2017 9:21AM By DEEPAK NELSON ; [facility] Levothyroxine Sodium 100 MCG Tablet 07/08/2016 Provi kymberly: Diagnosis: Last Documented On 07/08/2016 8:57AM By DEEPAK NELSON ; [facility] Meloxicam 15 MG Tablet 07/08/2016 Provider: Diagnosis: Last Documented On 07/08/2016 8:58AM By DEEPAK NELSON ; [facility] Hydroxychloroquine Sulfate 200 MG Tablet 07/08/2016 Provider: Diagnosis: Last Documented On 07/08/2016 8:59AM By DEEPAK NELSON ; [facility] Singulair 10 MG Tablet 07/03/2015 Provider: Diagnosis: Last Documented On 07/03/2015 8:59AM By DEEPAK NELSON ; [facility] Fluticasone Propionate 50 MCG/ACT NA SUSP 06/21/2013 Provider: Diagnosis: Last Documented On 06/21/2013 10:25AM By MAYA WAHL LPN ; [facility] raNITIdine HCl 300 MG OR CAPS 04/25/2011 Provider: Diagnosis: Last Documented On 04/25/2011 9:14AM By DEEPAK NELSON ; [facility] Medications Administered Includes: Administered Medications from this encounter No Administered Medications Recorded Results Includes: Results discussed during this encounter No Results Recorded For Specified Dates History of Present Illness Includes: History of Present Illness from this encounter No History of Present Illness Recorded Social History No Social History Recorded - Smoking Status Unknown Medical History Includes: Medical History addressed during this encounter No Medical History Recorded Family History Includes: Family History addressed during this encounter No Family History Recorded Review of Systems Includes: Review of Systems from this encounter No Review of Systems Recorded Mental Status Includes: Mental Status from this encounter No Mental Status Recorded Functional Status Includes: Functional Status from this encounter No Functional Status Recorded Physical Exam Includes: Physical Exam from this encounter No Physical Exam Recorded Allergies Includes: Active Allergies Substance Type Reaction Onset Date Resolved Date Statu s Codeine Allergy 09/11/2009 Active Last Documented On 7 9:20AM ; [facility] Insurance Includes: Active Insurance Policies Plan Name Member ID Group # Subscriber Relationship Effect ilan Dates - [facility] CLAIMS DEPT [id number] KORI MUSTAFA Self Clinical Notes Includes: Clinical Notes from this encounter No Clinical Notes Recorded
--- OUTSIDE RECORDS SUMMARY | 2024-10-30 16:56 | XMS_ITS ---
Author Organization [facility] Address [address] [place] [address] Phone Care Team Providers Care Tile Layer Drainage Name Role Phone RODERICK AMARO DO Primary Care Provider [phone] JESUS ALBERTO CHINCHILLA, PAULY Melendrez Unavailable [phone] Problems Includes: Active, inactive, and resolved Problems All Visits Onset Date Resolved Date Provider Condition S tatus Anemia 01/25/2019 YANY DANIELLE WHNP-BC Active Last Documented On 01/25/2019 10:52AM ; [facility] Note: secondary to menorrhagia - -2018 Rheumatoid Arthritis 07/08/2016 YANY DANIELLE WHNP-BC Active Last Documented On 6 9:01AM ; [facility] Hyperlipidemia 06/27/2014 YANY DANIELLE WHNP-BC Active Last Documented On 4 9:59AM ; [facility] Note: diet controlled Hypothyroidism 04/25/2011 YANY DANIELLE WHNP-BC Active Last Documented On 1 7:17AM ; [facility] Plan of Treatment Findings Encounter Date Ordered Clinical summary pro vided to patient ENDOMETRIAL BIOPSY with YANY DANIELLE WHNP-BC 01/25/2019 Last Documented On 9 11:08AM ; [facility] Ordered Clinical summary pro vided to patient ANNUAL SENIOR CONSUMER INSIGHTS CONSULTANT EXAM with YANY DANIELLE WHNP-BC 07/27/2018 Last Documented On 8 9:04AM ; [facility] Ordered follow-up visit 1 ye ar or as needed ANNUAL SENIOR CONSUMER INSIGHTS CONSULTANT EXAM with YANY DANIELLE WHNP-BC 07/27/2018 Last Documented On 8 9:04AM ; [facility] Ordered Clinical summary pro vided to patient ANNUAL SENIOR CONSUMER INSIGHTS CONSULTANT EXAM with YANY DANIELLE NP-BC 07/14/2017 Last Documented On 7 9:29AM ; [facility] Ordered follow-up visit 1 ye ar or as needed ANNUAL SENIOR CONSUMER INSIGHTS CONSULTANT EXAM with YANY DANIELLE NP-BC 07/14/2017 Last Documented On 7 9:29AM ; [facility] Ordered Clinical summary pro vided to patient ANNUAL SENIOR CONSUMER INSIGHTS CONSULTANT EXAM with YANY DANIELLE NP-BC 07/08/2016 Last Documented On 6 9:08AM ; [facility] Ordered follow-up visit 1 ye ar or as needed ANNUAL SENIOR CONSUMER INSIGHTS CONSULTANT EXAM with YANY DANIELLE NP-BC 07/08/2016 Last Documented On 6 9:08AM ; [facility] Ordered Clinical summary pro vided to patient ANNUAL SENIOR CONSUMER INSIGHTS CONSULTANT EXAM with YANY DANIELLE NP-BC 07/03/2015 Last Documented On 5 9:13AM ; [facility] Ordered follow-up visit 1 ye ar or as needed ANNUAL SENIOR CONSUMER INSIGHTS CONSULTANT EXAM with YANY DANIELLE NP-BC 07/03/2015 Last Documented On 5 9:13AM ; [facility] Ordered Clinical summary pro vided to patient ANNUAL SENIOR CONSUMER INSIGHTS CONSULTANT EXAM with YANY DANIELLE NP-BC 06/27/2014 Last Documented On 4 10:10AM ; [facility] Ordered follow-up visit 1 ye ar or as needed ANNUAL SENIOR CONSUMER INSIGHTS CONSULTANT EXAM with YANY DANIELLE NP-BC 06/27/2014 Last Documented On 4 10:10AM ; [facility] Ordered a urine culture SENIOR GRAPHIC DESIGNER EXAM with YANY CASTILLO NP-BC 06/21/2013 Last Documented On 3 10:58AM ; [facility] Ordered Clinical summary pro vided to patient SENIOR GRAPHIC DESIGNER EXAM with YANY DANIELLE NP-BC 06/21/2013 Last Documented On 3 10:58AM ; [facility] Ordered follow-up visit 1 ye ar or as needed SENIOR GRAPHIC DESIGNER EXAM with YANY DANIELLE NP-BC 06/21/2013 Last Documented On 3 10:58AM ; [facility] Ordered urinalysis SENIOR GRAPHIC DESIGNER EXAM with YANY DANIELLE W P-BC 06/21/2013 Last Documented On 3 10:58AM ; [facility] Pt. is agreeable to change t o lower dose of ocp due to > 33 yo and is s/p vasectomy. Only taking for cycle control. Had lipid panel per pcp last week SENIOR GRAPHIC DESIGNER EXAM with YANY DANIELLE [facility]- 05/14/2012 Last Documented On 2 10:04AM ; [facility] Ordered follow-up visit 1 ye ar or as needed SENIOR GRAPHIC DESIGNER EXAM with YANY DANIELLE [facility]-BC 04/25/2011 Last Documented On 1 9:24AM ; [facility] Ordered follow-up visit 1 ye ar or as needed SENIOR GRAPHIC DESIGNER EXAM with YANY DANIELLE [facility]- 04/21/2010 Last Documented On 0 10:49AM ; [facility] Referrals To Diagnosis Other RODERICK AMARO DO Excessive M enstruation Note: Dr. Roderick Amaro [facility] - please evaluate elevated cholesterol and LDL. Last Documented On 3 4:29PM ; [facility] Instructions to patient Instructions for patient : p atient is to keep a menstrual diary to help with further evaluation and treatment Last Documented On 9 10:49AM ; [facility] Instructions for patient : B reast Self Exam discussed Last Documented On 8 8:47AM ; [facility] Instructions for patient : B reast Self Exam discussed Last Documented On 7 9:14AM ; [facility] Instructions for patient : B reast Self Exam discussed Last Documented On 6 8:41AM ; [facility] Instructions for patient : B reast Self Exam discussed Last Documented On 5 8:50AM ; [facility] Instructions for patient : B reast Self Exam discussed Last Documented On 4 9:46AM ; [facility] Instructions for patient : B reast Self Exam discussed Last Documented On 3 10:13AM ; [facility] Instructions for patient : K eep the area around the vulva dry. Allow the area to have exposure to air. Avoid irritants such as fabric softeners and perfumed soaps.~ Last Documented On 3 10:51AM ; [facility] Instructions for patient : t he patient was instructed in the use and possible side effects of the medication prescribed. She is to maintain good hydration via p.o. fluids. We also discussed possible triggers for UTI and preventive measures Last Documented On 3 10:51AM ; [facility] Advised d/c scented bath pro ducts Last Documented On 3 10:51AM ; [facility] Patient to call if fever or back pain Last Documented On 3 10:51AM ; [facility] Instructed to decrease carbo nation and caffeine Last Documented On 3 10:51AM ; [facility] Increase water po Last Documented On 3 10:51AM ; [facility] Instructions For Patient: go od handwashing and perineal care Last Documented On 3 10:51AM ; [facility] Instructions for patient : B reast Self Exam discussed Last Documented On 2 9:41AM ; [facility] Instructions for patient : K eep the area around the vulva dry. Allow the area to have exposure to air. Avoid irritants such as fabric softeners and perfumed soaps.~ Last Documented On 2 10:00AM ; [facility] Advised d/c scented bath pro ducts Last Documented On 2 10:00AM ; [facility] Instructions for patient : B reast Self Exam discussed Last Documented On 1 9:01AM ; [facility] Instructions for patient : B reast Self Exam discussed Last Documented On 0 10:41AM ; [facility] Education and Decision Aids were provided during visit for: INFORMED CONSENT DISCUSSION: Endometrial biopsy was discussed in detail including discomfort, insufficient specimen with need to repeat test, and rare incidence of uterine perforation. Patient expressed understanding of the above and consented to the procedure Last Documented On 9 10:49AM ; [facility] Patient Education: Daily rome cium and vitamin D Last Documented On 8 8:47AM ; [facility] Patient Education: weight be aring exercise Last Documented On 8 8:47AM ; [facility] Patient Education: Daily rome cium and vitamin D Last Documented On 7 9:14AM ; [facility] Patient Education: weight be aring exercise Last Documented On 7 9:14AM ; [facility] Patient Education: Daily rome cium and vitamin D Last Documented On 6 8:41AM ; [facility] Patient Education: weight be aring exercise Last Documented On 6 8:41AM ; [facility] Patient Education: Daily rome cium and vitamin D Last Documented On 5 8:50AM ; [facility] Patient Education: weight be aring exercise Last Documented On 5 8:50AM ; [facility] Patient Education: Daily rome cium and vitamin D Last Documented On 4 9:46AM ; [facility] Patient Education: weight be aring exercise Last Documented On 4 9:46AM ; [facility] Patient Education: Daily rome cium and vitamin D Last Documented On 3 10:13AM ; [facility] Patient Education: weight be aring exercise Last Documented On 3 10:13AM ; [facility] Candidiasis Vulvovaginitis I nformation Sheet Given Last Documented On 3 10:51AM ; [facility] Patient Education: Daily rome cium and vitamin D Last Documented On 2 9:41AM ; [facility] Patient Education: weight be aring exercise Last Documented On 2 9:41AM ; [facility] Candidiasis Vulvovaginitis I nformation Sheet Given Last Documented On 2 10:00AM ; [facility] Patient Education: Daily rome cium and vitamin D Last Documented On 1 9:02AM ; [facility] Patient Education: weight be aring exercise Last Documented On 1 9:02AM ; [facility] control consent review ed and signed Last Documented On 1 9:02AM ; [facility] Assessments Includes: Assessments for all patient encounters Findings Encounter Date Menorrhagia ENDOMETRIAL BIOPSY with YANY GANN-SANDRA 01/25/2019 Last Documented On 9 11:08AM ; [facility] NORMAL FEMALE EXAM ANNUAL SENIOR CONSUMER INSIGHTS CONSULTANT EXAM with YANYKADEEM DANIELLE WHNP-BC 07/27/2018 Last Documented On 8 9:04AM ; [facility] Screening Malig. Neoplasm Rectum ANNUAL SENIOR CONSUMER INSIGHTS CONSULTANT EXAM with YANYKADEEM DANIELLE WHNP-BC 07/27/2018 Last Documented On 8 9:04AM ; [facility] NORMAL FEMALE EXAM ANNUAL SENIOR CONSUMER INSIGHTS CONSULTANT EXAM with YANYKADEEM DANIELLE WHNP-BC 07/14/2017 Last Documented On 7 9:29AM ; [facility] Screening Malig. Neoplasm Rectum ANNUAL SENIOR CONSUMER INSIGHTS CONSULTANT EXAM with YANYKADEEM DANIELLE WHNP-BC 07/14/2017 Last Documented On 7 9:29AM ; [facility] NORMAL FEMALE EXAM ANNUAL SENIOR CONSUMER INSIGHTS CONSULTANT EXAM with YANYKADEEM DANIELLE WHNP-BC 07/08/2016 Last Documented On 6 9:08AM ; [facility] Screening Malig. Neoplasm Rectum ANNUAL SENIOR CONSUMER INSIGHTS CONSULTANT EXAM with YANYKADEEM DANIELLE WHNP-BC 07/08/2016 Last Documented On 6 9:08AM ; [facility] NORMAL FEMALE EXAM ANNUAL SENIOR CONSUMER INSIGHTS CONSULTANT EXAM with YANYKADEEM DANIELLE WHNP-BC 07/03/2015 Last Documented On 5 9:13AM ; [facility] Screening Malig. Neoplasm Rectum ANNUAL SENIOR CONSUMER INSIGHTS CONSULTANT EXAM with YANYKADEEM DANIELLE WHNP-BC 07/03/2015 Last Documented On 5 9:13AM ; [facility] NORMAL FEMALE EXAM ANNUAL SENIOR CONSUMER INSIGHTS CONSULTANT EXAM with YANYKADEEM DANIELLE WHNP-BC 06/27/2014 Last Documented On 4 10:10AM ; [facility] Screening Malig. Neoplasm Rectum ANNUAL SENIOR CONSUMER INSIGHTS CONSULTANT EXAM with YANYKADEEM DANIELLE WHNP-BC 06/27/2014 Last Documented On 4 10:10AM ; [facility] Contraceptive surveillance PROBLEM VISIT with DC DANIELLE WHNP-BC 06/28/2013 Last Documented On 3 1:33PM ; [facility] Menorrhagia PROBLEM VISIT with YANYKADEEM DANIELLE WHNP-BC 06/28/2013 Last Documented On 3 1:33PM ; [facility] Bijal albicans vulvovaginitis SENIOR GRAPHIC DESIGNER EXAM with CA ANATOLY DANIELLE WHNP-BC 06/21/2013 Last Documented On 3 10:58AM ; [facility] Essential hematuria SENIOR GRAPHIC DESIGNER EXAM with YANY DANIELLE NP-BC 06/21/2013 Last Documented On 3 10:58AM ; [facility] NORMAL FEMALE EXAM SENIOR GRAPHIC DESIGNER EXAM with YANY Cross P-BC 06/21/2013 Last Documented On 3 10:58AM ; [facility] Screening Malig. Neoplasm Rectum SENIOR GRAPHIC DESIGNER EXAM with Parvin DANIELLE [facility]-BC 06/21/2013 Last Documented On 3 10:58AM ; [facility] Bijal albicans vulvovaginitis SENIOR GRAPHIC DESIGNER EXAM with DC DANIELLE NP-BC 05/14/2012 Last Documented On 2 10:04AM ; [facility] NORMAL FEMALE EXAM SENIOR GRAPHIC DESIGNER EXAM with YANY Cross P-BC 05/14/2012 Last Documented On 2 10:04AM ; [facility] Normal routine history and physical SENIOR GRAPHIC DESIGNER EXAM catina DANIELLE [facility]-BC 04/25/2011 Last Documented On 1 9:24AM ; [facility] Routine pelvic exam SENIOR GRAPHIC DESIGNER EXAM with YANY DANIELLE NP-BC 04/25/2011 Last Documented On 1 9:24AM ; [facility] Normal routine history and physical SENIOR GRAPHIC DESIGNER EXAM wit hardeep DANIELLE [facility]-BC 04/21/2010 Last Documented On 0 10:49AM ; [facility] Routine pelvic exam SENIOR GRAPHIC DESIGNER EXAM with YANY DANIELLE NP-BC 04/21/2010 Last Documented On 0 10:49AM ; [facility] Instructions Includes: Instructions for all patient encounters Instructions to patient Instructions for patient : p atient is to keep a menstrual diary to help with further evaluation and treatment Last Documented On 9 10:49AM ; [facility] Instructions for patient : B reast Self Exam discussed Last Documented On 8 8:47AM ; [facility] Instructions for patient : B reast Self Exam discussed Last Documented On 7 9:14AM ; [facility] Instructions for patient : B reast Self Exam discussed Last Documented On 6 8:41AM ; [facility] Instructions for patient : B reast Self Exam discussed Last Documented On 5 8:50AM ; [facility] Instructions for patient : B reast Self Exam discussed Last Documented On 4 9:46AM ; [facility] Instructions for patient : B reast Self Exam discussed Last Documented On 3 10:13AM ; [facility] Instructions for patient : K eep the area around the vulva dry. Allow the area to have exposure to air. Avoid irritants such as fabric softeners and perfumed soaps.~ Last Documented On 3 10:51AM ; [facility] Instructions for patient : t he patient was instructed in the use and possible side effects of the medication prescribed. She is to maintain good hydration via p.o. fluids. We also discussed possible triggers for UTI and preventive measures Last Documented On 3 10:51AM ; [facility] Advised d/c scented bath pro ducts Last Documented On 3 10:51AM ; [facility] Patient to call if fever or back pain Last Documented On 3 10:51AM ; [facility] Instructed to decrease carbo nation and caffeine Last Documented On 3 10:51AM ; [facility] Increase water po Last Documented On 3 10:51AM ; [facility] Instructions For Patient: go od handwashing and perineal care Last Documented On 3 10:51AM ; [facility] Instructions for patient : B reast Self Exam discussed Last Documented On 2 9:41AM ; [facility] Instructions for patient : K eep the area around the vulva dry. Allow the area to have exposure to air. Avoid irritants such as fabric softeners and perfumed soaps.~ Last Documented On 2 10:00AM ; [facility] Advised d/c scented bath pro ducts Last Documented On 2 10:00AM ; [facility] Instructions for patient : B reast Self Exam discussed Last Documented On 1 9:01AM ; [facility] Instructions for patient : B reast Self Exam discussed Last Documented On 0 10:41AM ; [facility] Education and Decision Aids were provided during visit for: INFORMED CONSENT DISCUSSION: Endometrial biopsy was discussed in detail including discomfort, insufficient specimen with need to repeat test, and rare incidence of uterine perforation. Patient expressed understanding of the above and consented to the procedure Last Documented On 9 10:49AM ; [facility] Patient Education: Daily rome cium and vitamin D Last Documented On 8 8:47AM ; [facility] Patient Education: weight be aring exercise Last Documented On 8 8:47AM ; [facility] Patient Education: Daily rome cium and vitamin D Last Documented On 7 9:14AM ; [facility] Patient Education: weight be aring exercise Last Documented On 7 9:14AM ; [facility] Patient Education: Daily rome cium and vitamin D Last Documented On 6 8:41AM ; [facility] Patient Education: weight be aring exercise Last Documented On 6 8:41AM ; [facility] Patient Education: Daily rome cium and vitamin D Last Documented On 5 8:50AM ; [facility] Patient Education: weight be aring exercise Last Documented On 5 8:50AM ; [facility] Patient Education: Daily rome cium and vitamin D Last Documented On 4 9:46AM ; [facility] Patient Education: weight be aring exercise Last Documented On 4 9:46AM ; [facility] Patient Education: Daily rome cium and vitamin D Last Documented On 3 10:13AM ; [facility] Patient Education: weight be aring exercise Last Documented On 3 10:13AM ; [facility] Candidiasis Vulvovaginitis I nformation Sheet Given Last Documented On 3 10:51AM ; [facility] Patient Education: Daily rome cium and vitamin D Last Documented On 2 9:41AM ; [facility] Patient Education: weight be aring exercise Last Documented On 2 9:41AM ; [facility] Candidiasis Vulvovaginitis I nformation Sheet Given Last Documented On 2 10:00AM ; [facility] Patient Education: Daily rome cium and vitamin D Last Documented On 1 9:02AM ; [facility] Patient Education: weight be aring exercise Last Documented On 1 9:02AM ; [facility] control consent review ed and signed Last Documented On 1 9:02AM ; [facility] Medical Equipment - Implanted Devices Includes: Current and historical Devices No Medical Equipment Recorded Medications Includes: Current and historical Medications Current Medications (continue as prescribed) Lisinopril 10MG Oral Tablet 07/27/2018 Provider: Diagnosis: Last Documented On 07/27/2018 8:50AM By DEEPAK NELSON ; [facility] PredniSONE 5MG Oral Tablet 07/27/2018 Provider: Diagnosis: Last Documented On 07/27/2018 8:51AM By DEEPAK NELSON ; [facility] Arava 10MG Oral Tablet 07/14/2017 Provider: Diagnosis: Last Documented On 07/14/2017 9:21AM By DEEPAK NELSON ; [facility] Levothyroxine Sodium 100 MCG Tablet 07/08/2016 Provi kymberly: Diagnosis: Last Documented On 07/08/2016 8:57AM By DEEPAK NELSON ; [facility] Meloxicam 15 MG Tablet 07/08/2016 Provider: Diagnosis: Last Documented On 07/08/2016 8:58AM By DEEPAK NELSON ; [facility] Hydroxychloroquine Sulfate 200 MG Tablet 07/08/2016 Provider: Diagnosis: Last Documented On 07/08/2016 8:59AM By DEEPAK NELSON ; [facility] Singulair 10 MG Tablet 07/03/2015 Provider: Diagnosis: Last Documented On 07/03/2015 8:59AM By DEEPAK NELSON ; [facility] Fluticasone Propionate 50 MCG/ACT NA SUSP 06/21/2013 Provider: Diagnosis: Last Documented On 06/21/2013 10:25AM By MAYA WAHL LPN ; [facility] raNITIdine HCl 300 MG OR CAPS 04/25/2011 Provider: Diagnosis: Last Documented On 04/25/2011 9:14AM By DEEPAK NELSON ; [facility] Past Medications on file Folic Acid 1 MG Tablet 07/08/2016 - 07/27/2018 Provide r: Diagnosis: Last Documented On 07/27/2018 8:51AM By DEEPAK NELSON ; [facility] Methotrexate 2.5 MG Tablet 07/08/2016 - 07/14/2017 Pro vider: Diagnosis: 6 tabs once a week Last Documented On 07/14/2017 9:20AM By DEEPAK NELSON ; [facility] PredniSONE 5 MG Tablet 07/08/2016 - 07/14/2017 Provide r: Diagnosis: Last Documented On 07/14/2017 9:21AM By DEEPAK NELSON ; [facility] Diflucan 150 MG OR TABS 06/21/2013 - 07/21/2013 Provider: YANY VICTORIA Diagnosis: CANDIDAL VULVOVA GINITIS one po x 1 and rpt. in 3 days Last Documented On 3 10:54AM By YANY VICTORIA ; [facility] Generess FE 0.8-25 MG-MCG OR CHEW 06/21/2013 - 06/28/2013 Provider: YANY CERVANTES Diagnosis: DYSMENORRHEA 3 samples given in office Last Documented On 3 1:19PM By YANY VICTORIA ; [facility] Microgestin 09/16 1-20 MG-MCG OR TABS 06/21/2013 - 05/30 Provider: Diagnosis: Last Documented On 4 9:47AM By YANY VICTORIA ; [facility] Levothyroxine 0.06 MCG MT TABS 06/21/2013 - 07/08/2016 Provider: Diagnosis: 0.05 Last Documented On 07/08/2016 8:57AM By DEEPAK NELSON ; [facility] GROUP Macrobid 100 MG OR CAPS 06/21/2013 - 06/24/2013 Provid er: YANY VICTORIA Diagnosis: HEMATURIA NOS Last Documented On 3 10:53AM By YANY VICTORIA ; [facility] Generess FE 0.8-25 MG-MCG OR CHEW 05/16/2013 - 06/21/2013 Provider: YANY VICTORIA Diagnosis: Contraceptive Ma ngmt NOS Last Documented On 3 10:50AM By YANY VICTORIA ; [facility] Generess FE 0.8-25 MG-MCG OR CHEW 08/30/2012 - 05/16/2013 Provider: YANY RAUSCH HOUSING MANAGER-BC Diagnosis: Last Documented On 3 11:28AM By YANY VICTORIA ; [facility] Generess FE 0.8-25 MG-MCG OR CHEW 05/14/2012 - 08/30/2012 Provider: YANY RAUSCH NP-BC Diagnosis: Last Documented On 3 7:23AM By YANY VICTORIA ; [facility] Diflucan 150 MG OR TABS 05/14/2012 - 06/13/2012 Provid er: YANY VICTORIA Diagnosis: take one dose po x 1 and december rpt. in 3 days. 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 Last Documented On 2 10:00AM By YANY VICTORIA ; [facility] Ortho-Cyclen (28) 0.25-35 MG-MCG OR TABS 04/25/2011 - 04/19/2012 Provider: YANY RAUSCH HOUSING MANAGER-BC Diagnosis: Last Documented On 1 9:23AM By YANY VICTORIA ; [facility] Ortho-Cyclen (28) 0.25-35 MG-MCG OR TABS 04/21/2010 - 04/25/2011 Provider: YANY RAUSCH HOUSING MANAGER-BC Diagnosis: Last Documented On 1 9:23AM By YANY VICTORIA ; [facility] Levothyroxine Sodium 25 MCG OR TABS 04/21/2010 - 06/21 Provider: Diagnosis: Last Documented On 06/21/2013 10:24AM By MAYA WAHL LPN ; [facility] Ortho-Cyclen (28) 0.25-35 MG-MCG OR TABS 04/12/2010 - 04/21/2010 Provider: BARRETT MICHELE AM [facility] Diagnosis: Last Documented On 0 10:43AM By YANY DANIELLE [facility] ; [facility] Medications Administered Includes: Administered Medications in patient's chart No Administered Medications Recorded Results Includes: Results from 10/31/2023 through 10/30/2024 No Results Recorded For Specified Dates History of Present Illness History of Present Illness not supported for this document type No History of Present Illness Recorded Social History Description Last Updated Smoking status : Never smoker 01/25/2019 Last Documented On 9 11:08AM ; [facility] The racial background 01/25/2019 Last Documented On 9 11:08AM ; [facility] The racial background is 01/25 Last Documented On 9 11:08AM ; [facility] Procedures and Surgical History Surgical History Last Updated Surgical / procedural history c/s 2015 Last Documented On 6 9:08AM ; [facility] Dilation + Curettage 06/21/2013 Last Documented On 3 10:58AM ; [facility] History of cholecystectomy 06/21/2013 Last Documented On 3 10:58AM ; [facility] Medical History Includes: Medical History in patient's chart Description Last Updated LMP: 12/27/2018 01/25/2019 Last Documented On 9 11:08AM ; [facility] Sexually active 01/25/2019 Last Documented On 9 11:08AM ; [facility] Contraception: vasectomy 01/25/2019 Last Documented On 9 11:08AM ; [facility] History of Pap smear done 07/27/2018 Last Documented On 9 11:08AM ; [facility] History of screening mammogram was perfo rmed 09/26/2018 01/25/2019 Last Documented On 9 11:08AM ; [facility] Result: normal 01/25/2019 Last Documented On 9 11:08AM ; [facility] Result: normal 01/25/2019 Last Documented On 9 11:08AM ; [facility] History of benign essential hypertension 07/27/2018 Last Documented On 8 9:04AM ; [facility] History of hypothyroidism 07/27/2018 Last Documented On 8 9:04AM ; [facility] 1 miscarriage(s) 06/21/2013 Last Documented On 3 10:58AM ; [facility] Aborta 1 06/21/2013 Last Documented On 3 10:58AM ; [facility] 2 06/21/2013 Last Documented On 3 10:58AM ; [facility] Para 1 06/21/2013 Last Documented On 3 10:58AM ; [facility] Thyroid disease 06/21/2013 Last Documented On 3 10:58AM ; [facility] Family History Includes: Family History in patient's chart Description Last Updated Spouse name: Edu Nicole-boyfriend 014 Last Documented On 4 10:10AM ; [facility] Family history of diabetes mellitus lots of people in her family 06/21/2013 Last Documented On 3 10:58AM ; [facility] Family history of heart disease on both sides 06/21/2013 Last Documented On 3 10:58AM ; [facility] Family history of malignant female breast neoplasm paternal grandmother passed at 89 from this 06/21/2013 Last Documented On 3 10:58AM ; [facility] Family history of hypercholesterolemia b oth sides 04/25/2011 Last Documented On 1 9:24AM ; [facility] Family history of hypertension both side s 04/25/2011 Last Documented On 1 9:24AM ; [facility] Family history of Cancer GRANDMOTHER JASON AST CANCER 09/11/2009 Last Documented On 0 3:01PM ; [facility] Family history of Diabetes 2 UNCLES AND FATHER 09/11/2009 Last Documented On 0 3:01PM ; [facility] Family medical history of Breast problem s 09/11/2009 Last Documented On 0 3:01PM ; [facility] Family medical history of high blood pre ssure MOTHER,FATHER,SISTER 09/11/2009 Last Documented On 0 3:01PM ; [facility] Family medical history of High Cholester ol MOTHER 09/11/2009 Last Documented On 0 3:01PM ; [facility] Review of Systems Review of Systems not supported for this document type No Review of Systems Recorded Mental Status No Mental Status Recorded Functional Status No Functional Status Recorded Physical Exam Physical Exam not supported for this document type No Physical Exam Recorded Allergies Includes: Active, inactive, and resolved Allergies Substance Type Reaction Onset Date Resolved Date Statu s Codeine Allergy 09/11/2009 Active Last Documented On 7 9:20AM ; [facility] Insurance Includes: Active Insurance Policies Plan Name Member ID Group # Subscriber Relationship Effect ilan Dates 1 - [facility] CLAIMS DEPT [id number] KORI Moctezuma Clinical Notes Includes: Signed Clinical Notes starting from 09/16/2022 No Clinical Notes Recorded
--- OUTSIDE RECORDS SUMMARY | 2024-10-30 16:56 | XMS_ITS | Clinical Summary ---
Author Organization [facility] Address [address] [place] [address] Phone Care Team Providers Care Water Meter Reader Name Role Phone RODERICK AMARO DO Primary Care Provider [phone] JESUS ALBERTO CHINCHILLA, PAULY Melendrez Unavailable [phone] Reason for Visit and Chief Complaint * PHONE CALL Problems Includes: Problems addressed during this encounter and other active Problems All Visits Onset Date Resolved Date Provider Condition S tatus Anemia 01/25/2019 YANY DANIELLE WHNP-BC Active Last Documented On 01/25/2019 10:52AM ; [facility] Note: secondary to menorrhagia - -2018 Rheumatoid Arthritis 07/08/2016 YANY DANIELLE WHNP-BC Active Last Documented On 6 9:01AM ; [facility] Hyperlipidemia 06/27/2014 YANY DANIELLE WHNP-BC Active Last Documented On 4 9:59AM ; [facility] Note: diet controlled Hypothyroidism 04/25/2011 YANY DANIELLE WHNP-BC Active Last Documented On 1 7:17AM ; [facility] Plan of Treatment No Plan of Treatment Recorded Assessments Includes: Assessments from this encounter No Assessments Recorded Medical Equipment - Implanted Devices Includes: Current Devices No Medical Equipment Recorded Medications Includes: Medications discussed during this encounter and other current Medications Current Medications (continue as prescribed) Lisinopril 10MG Oral Tablet 07/27/2018 Provider: Diagnosis: Last Documented On 07/27/2018 8:50AM By DEEPAK NELSON ; [facility] PredniSONE 5MG Oral Tablet 07/27/2018 Provider: Diagnosis: Last Documented On 07/27/2018 8:51AM By DEEPAK NELSON ; [facility] Arava 10MG Oral Tablet 07/14/2017 Provider: Diagnosis: Last Documented On 07/14/2017 9:21AM By DEEPAK NELSON ; [facility] Levothyroxine Sodium 100 MCG Tablet 07/08/2016 Provi kymberly: Diagnosis: Last Documented On 07/08/2016 8:57AM By DEEPAK NELSON ; [facility] Meloxicam 15 MG Tablet 07/08/2016 Provider: Diagnosis: Last Documented On 07/08/2016 8:58AM By DEEPAK NELSON ; [facility] Hydroxychloroquine Sulfate 200 MG Tablet 07/08/2016 Provider: Diagnosis: Last Documented On 07/08/2016 8:59AM By DEEPAK NELSON ; [facility] Singulair 10 MG Tablet 07/03/2015 Provider: Diagnosis: Last Documented On 07/03/2015 8:59AM By DEEPAK NELSON ; [facility] Fluticasone Propionate 50 MCG/ACT NA SUSP 06/21/2013 Provider: Diagnosis: Last Documented On 06/21/2013 10:25AM By MAYA WAHL LPN ; [facility] raNITIdine HCl 300 MG OR CAPS 04/25/2011 Provider: Diagnosis: Last Documented On 04/25/2011 9:14AM By DEEPAK NELSON ; [facility] Past Medications on file Diflucan 150 MG OR TABS 06/21/2013 - 07/21/2013 Provider: YANY VICTORIA Diagnosis: CANDIDAL VULVOVA GINITIS one po x 1 and rpt. in 3 days Last Documented On 3 10:54AM By YANY VICTORIA ; [facility] Macrobid 100 MG OR CAPS 06/21/2013 - 06/24/2013 Provid er: YANY VICTORIA Diagnosis: HEMATURIA NOS Last Documented On 3 10:53AM By YANY VICTORIA ; [facility] Diflucan 150 MG OR TABS 05/14/2012 - 06/13/2012 Provid er: YANY VICTORIA Diagnosis: take one dose po x 1 and december rpt. in 3 days. 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
--- OUTSIDE RECORDS SUMMARY | 2024-10-30 16:57 | XMS_ITS | Clinical Summary ---
Author Organization [facility] Address [address] [place] [place] [address] Phone Care Team Providers Care Violin Mechanic Name Role Phone RODERICK AMARO DO Primary Care Provider [phone] JESUS ALBERTO CHINCHILLA, PAULY Melendrez Unavailable [phone] Reason for Visit and Chief Complaint PELVIC W/TVT Problems Includes: Problems addressed during this encounter and other active Problems All Visits Onset Date Resolved Date Provider Condition S tatus Anemia 01/25/2019 YANY DANIELLE WHNP-BC Active Last Documented On 01/25/2019 10:52AM ; [facility] Note: secondary to menorrhagia - Rheumatoid Arthritis 07/08/2016 YANY DANIELLE WHNP-BC Active Last Documented On 6 9:01AM ; [facility] Hyperlipidemia 06/27/2014 YANY DANIELLE WHNP-BC Active Last Documented On 4 9:59AM ; [facility] Note: diet controlled Hypothyroidism 04/25/2011 YANY DANIELLE WHNP-BC Active Last Documented On 1 7:17AM ; [facility] Plan of Treatment No Plan of Treatment Recorded Assessments Includes: Assessments from this encounter No Assessments Recorded Medical Equipment - Implanted Devices Includes: Current Devices No Medical Equipment Recorded Medications Includes: Medications discussed during this encounter and other current Medications Current Medications (continue as prescribed) Lisinopril 10MG Oral Tablet 07/27/2018 Provider: Diagnosis: Last Documented On 07/27/2018 8:50AM By DEEPAK NELSON ; [facility] PredniSONE 5MG Oral Tablet 07/27/2018 Provider: Diagnosis: Last Documented On 07/27/2018 8:51AM By DEEPAK NELSON ; [facility] Arava 10MG Oral Tablet 07/14/2017 Provider: Diagnosis: Last Documented On 07/14/2017 9:21AM By DEEPAK NELSON ; [facility] Levothyroxine Sodium 100 MCG Tablet 07/08/2016 Provi kymberly: Diagnosis: Last Documented On 07/08/2016 8:57AM By DEEPAK NELSON ; [facility] Meloxicam 15 MG Tablet 07/08/2016 Provider: Diagnosis: Last Documented On 07/08/2016 8:58AM By DEEPAK NELSON ; [facility] Hydroxychloroquine Sulfate 200 MG Tablet 07/08/2016 Provider: Diagnosis: Last Documented On 07/08/2016 8:59AM By DEEPAK NELSON ; [facility] Singulair 10 MG Tablet 07/03/2015 Provider: Diagnosis: Last Documented On 07/03/2015 8:59AM By DEEPAK NELSON ; [facility] Fluticasone Propionate 50 MCG/ACT NA SUSP 06/21/2013 Provider: Diagnosis: Last Documented On 06/21/2013 10:25AM By MAYA WAHL LPN ; [facility] raNITIdine HCl 300 MG OR CAPS 04/25/2011 Provider: Diagnosis: Last Documented On 04/25/2011 9:14AM By DEEPAK NELSON ; [facility] Past Medications on file Diflucan 150 MG OR TABS 06/21/2013 - 07/21/2013 Provider: YANY VICTORIA Diagnosis: CANDIDAL VULVOVA GINITIS one po x 1 and rpt. in 3 days Last Documented On 3 10:54AM By YANY VICTORIA ; [facility] Macrobid 100 MG OR CAPS 06/21/2013 - 06/24/2013 Provid er: YANY VICTORIA Diagnosis: HEMATURIA NOS Last Documented On 3 10:53AM By YANY VICTORIA ; [facility] Diflucan 150 MG OR TABS 05/14/2012 - 06/13/2012 Provid er: YANY VICTORIA Diagnosis: take one dose po x 1 and december rpt. in 3 days. Last Documented On 2 10:01AM By YANY VICTORIA ; [facility] Ortho-Cyclen (28) 0.25-35 MG-MCG OR TABS 04/25/2011 - 04/19/2012 Provider: YANY CERVANTES Diagnosis: Last Documented On 1 9:23AM By YANY VICTORIA ; [facility] Medications Administered Includes: Administered Medications from this [...] Active Last Documented On 7 9:20AM ; [facility] Encounters Encounter Provider Location Date Check-In Time Check-Out Time Diagnosis PELVIC W/TVT [facility] 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
--- OUTSIDE RECORDS SUMMARY | 2024-10-30 16:57 | XMS_ITS | Referral Summary ---
Author Organization [facility] Address [address] [facility] [place] [address] Care Team Providers Care School Admissions Representative Name Role Phone Waldemar Fulton Primary Care Provider [phone] Source Comments [facility],non-owned Affiliates and Associated Physician Practices is amultiple site organization consisting of ambulatory clinics and hospital sitesin [place], [place], [place] and [place]. This disclosure is being madepursuant to the Care Everywhere program and may not contain all information available regarding this patient. Last updated 18.[facility] Encounters Date Type Department Care Team Description 10/11/2024 Orders Only [facility] - Rheumatology [place] [phone] Eliza Daly MD Rheumatoid arthritis 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 factor (HCC); Encounter for long-term (current) use of high-risk medication; Encounter for therapeutic drug level monitoring 08/23/2024 Orders Only [facility] - [place] [address] [place] [phone] Eliza Daly MD Rheumatoid arthritis 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 factor (HCC); Encounter for long-term (current) use of high-risk medication; Encounter for therapeutic drug level monitoring 08/19/2024 Travel 08/19/2024 12:40 PM [employer] Office Visit [facility] - [place] [address] [place] [address] Eliza Daly MD Rheumatoid arthritis 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 factor (HCC) (Primary Dx); Encounter for long-term (current) use of high-risk medication; Encounter for therapeutic drug level monitoring 08/16/2024 Orders Only [facility] - Rheumatology [address] [facility] [place] [phone] Eliza Daly MD 08/16/2024 Telephone [facility] - Rheumatology [address] [place] [address] Eliza Daly MD Change In Condition/behavior from Last 3 Months Allergies Active Allergy Reactions Criticality Noted Date Comments Codeine Other Low 03/07/2016 Stomach pain Methotrexate Other Low 02/09/2017 Makes pt's hair fall out Medications * Be aware that medications may not be up to date on this document. Alwaysverify current medications with the patient. Medication Sig Dispensed Refills Start Date End Date Status fluticasone propionate (FLONASE) 50 MCG/ACT nasal spray 2 (two) sprays DAILY 3 05/26/2016 Acti ve montelukast (SINGULAIR) 10 MG tablet 5 02/12/2016 Active amLODIPine (NORVASC) 10 MG tablet Take 1 (one) tablet by mouth once daily 02/27/2021 Active famotidine (PEPCID) 20 MG tablet TAKE 1 TABLET BY MOUTH TWICE DAILY NEEDED FOR REFLUX 03/07/2021 Active metoprolol tartrate (LOPRESSOR) 50 MG tablet Take 1 (one) tablet by mouth every 12 hours 03/24/2021 Active levothyroxine (Synthroid) 112 MCG tablet Take 1 (one) tablet by mouth once daily 04/28/2024 Active etanercept (Enbrel SureClick) 50 MG/ML auto-injector penIndications:Rh eumatoid arthritis 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 factor (HCC) Inject 50 (fifty) mg subcutaneously every 7 days 4 mL 6 05/06/2024 Active leflunomide (Arava) 10 MG tabletIndications :Rheumatoid arthritis 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 factor (HCC) Take 1 (one) tablet by mouth once daily 90 tablet 1 05/06/2024 Active methylPREDNISolon e (Medrol Dosepak) 4 MG tabletIndications :Inflammatory arthritis flare Take by mouth as directed Take as directed by mouth per package instructions. Reasons: Inflammatory arthritis flare 21 tablet 07/18/2024 Active Additional Information Patient not taking.Reported on 08/19/2024 predniSONE (Deltasone) 5 MG tablet Take 1 (one) tablet by mouth 2 times daily 60 tablet 1 08/19/2024 Active sulfaSALAzine EC (Azulfidine Entab) 500 MG tablet Take 3 (three) tablets by mouth 2 times daily 540 tablet 1 08/19/2024 Active Active Problems Problem Noted Date Diagnosed Date Encounter for long-term (cur rent) use of high-risk medication 06/12/2018 Encounter for therapeutic drug level monitoring 02/07/2017 Rheumatoid arthritis with negative rheumatoid fa ctor 06/20/2016 Rheumatoid arthritis 06/07/2016 Overview (11/27/2017): ICD-10 update 2015 Other penitentiary (current) drug therapy 6 Gastro-esophageal reflux disease without esophag itis 03/07/2016 Hypothyroidism 03/07/2016 Immunizations Name Administration Dates Next Due INFLUENZA VACCINE, TRIV. (AF LURIA, FLUZONE TRIVALENT; 6MO+) (IIV3) 06/28/2016 INFLUENZA VACCINE, QUADR. (F LUZONE; FLULAVAL; FLUARIX; AFLURIA QUADRIVALENT; 6MO+), 0.5 ML (IIV4) 06/21/2019 iNFLUENZA VACCINE, RECOM-AGUILERA, QUADR. (FLUBLOCK QUADRIVALENT; 18Y+) (RIV4) 08/01/2022 Social History Tobacco Use Types Packs/Day Years Used Date Smoking Tobacco: Never Smokeless Tobacco: Never Tobacco Cessation:Counseling Given: Not Answered Alcohol Use Standard Drinks/Week Comments No 0 (1 standard drink = 0.6 oz pur e alcohol) Sex and Gender Information Value Date Recorded Sex Assigned at Not on file Gender Identity Not on file Sexual Orientation Not on file Last Filed Vital Signs Vital Sign Reading Time Taken Comments Blood Pressure 154/92 08/19/2024 12:42 PM [employer] Pulse 74 08/19/2024 12:42 PM [employer] Temperature 36.6 C (97.8 F) 08/19/2024 12:42 PM [employer] Respiratory Rate 16 06/05/2023 12:42 PM CDT Oxygen Saturation 96% 08/19/2024 12:42 PM [employer] Inhaled Oxygen Concentration - - Weight 58.7 kg (129 lb 6.4 oz) 08/19/2024 12:42 PM [employer] Height 160 cm (5' 3 ) 06/05/2023 12:42 PM CDT Body Mass Index 22.92 06/05/2023 12:42 PM CDT Plan of Treatment Upcoming Encounters Date Type Department Care Team (Late st Contact Info) Description 01/06/2025 11:00 AM CDT Office Visit [facility] - Rheumatology [address] [place] [address] Eliza Daly MD [address] [facility] [place] [address] Procedures Procedure Name Priority Date/Time Associated Diagnosis Comments QUANTIFERON-TB GOLD PLUS 1-TUBE 08/16/2024 3:24 PM [employer] C-REACTIVE PROTEIN 08/16/2024 3: 23 PM [employer] URINALYSIS W/MICROSCOPIC REFLEX TO CULTURE 08/16/2024 3:23 PM [employer] CBC W AUTO DIFFERENTIAL 08/16/2024 3:23 PM [employer] ERYTHROCYTE SEDIMENTATION RATE 08/16/2024 3:23 PM [employer] COMPREHENSIVE METABOLIC PANEL 08/16/2024 3:23 PM [employer] CULTURE URINE REFLEXED III 08/16/2024 3:23 PM [employer] HEPATITIS C ANTIBODY Routine 03/25/2016 4:37 PM CDT from Last 3 Months or Most Recently Relevant to Health Maintenance Results * QUANTIFERON-TB GOLD PLUS 1-TUBE (08/16/2024 3:24 PM [employer]) QuantiFERON TB Gold Plus NEGATIVE NEGATIVE [facility] Comment: Negative test result. M. tuberculosis complex infection unlikely. NIL 0.02 IU/mL [facility] MITOGEN MINUS NIL RESULT 8.45 IU/mL [facility] TB1-NIL 0.00 IU/mL [facility] TB2-NIL 0.01 IU/mL [facility] Comment: The Nil tube value reflects the background interferon gamma immune response of the patient's blood sample. This value has been subtracted from the patient's displayed TB and Mitogen results. Lower than expected results with the Mitogen tube prevent false-negative Quantiferon readings by detecting a patient with a potential immune suppressive condition and/or suboptimal pre-analytical specimen handling. The TB1 Antigen tube is coated with the M. tuberculosis-specific antigens designed to elicit responses from TB antigen primed CD4+ helper T-lymphocytes. The TB2 Antigen tube is coated with the M. tuberculosis-specific antigens designed to elicit responses from TB antigen primed CD4+ helper and CD8+ cytotoxic T-lymphocytes. For additional information, please refer to https://education.Keep Your [facility] Open/faq/IJY576 (This link is being provided for informational/ educational purposes only.) Test Performed at: [facility] [address] [address] [place] [address] GONSALO SPIVEY MD 08/16/2024 3:24 PM [employer] 08/16/2024 3:24 PM [employer] Eliza Daly MD LAB - CHEMISTR Y ORDERABLES Performing Organization Address [facility] Co de Phone Number [address] [address] * CULTURE URINE REFLEXED III (08/16/2024 3:23 PM [employer]) Reflexive Urine Culture See Below [facility] Comment: NO CULTURE INDICATED Test Performed at: [facility] [address] GONSALO SPIVEY MD 08/16/2024 3:23 PM [employer] 08/16/2024 3:23 PM [employer] Eliza Daly MD LAB - MICROBIO LOGY ORDERABLES Performing Organization Address [facility] Co de Phone Number [address] [address] * URINALYSIS W/MICROSCOPIC REFLEX TO CULTURE (08/16/2024 3:23 PM [employer]) Color UA YELLOW YELLOW [facility] Appearance CLEAR CLEAR [facility] Specific [place] UA 1.013 1.001 - 1.035 [facility] pH UA 5.5 5.0 - 8.0 [facility] Glucose UA NEGATIVE NEGATIVE [facility] Bilirubin UA NEGATIVE NEGATIVE [facility] Ketone UA NEGATIVE NEGATIVE [facility] Blood UA NEGATIVE NEGATIVE [facility] Protein UA NEGATIVE NEGATIVE [facility] Nitrite NEGATIVE NEGATIVE [facility] Leukocyte Esterase NEGATIVE NEGATIVE [facility] WBC UA NONE SEEN < OR = 5 /HPF [facility] RBC UA NONE SEEN < OR = 2 /HPF [facility] Epithelial Cell UA 0-5 < OR = 5 /HPF [facility] Bacteria UA NONE SEEN NONE SEEN /HPF [facility] Hyaline Casts NONE SEEN NONE SEEN /LPF [facility] Note See Below [facility] Comment: This urine was analyzed for the presence of WBC, RBC, bacteria, casts, and other formed elements. Only those elements seen were reported. Test Performed at: [facility] [address] GONSALO SPIVEY MD 08/16/2024 3:23 PM [employer] 08/16/2024 3:23 PM [employer] Eliza Daly MD LAB - URINALYS IS ORDERABLES Performing Organization Address [facility] Co de Phone Number [address] [address] * C-REACTIVE PROTEIN (08/16/2024 3:23 PM [employer]) C-Reactive Protein 5.1 <8.0 mg/L [facility] Comment: Test Performed at: [facility] [id number] [place] [address] GONSALO SPIVEY MD 08/16/2024 3:23 PM [employer] 08/16/2024 3:23 PM [employer] Eliza Daly MD LAB - CHEMISTR Y ORDERABLES Performing Organization Address [facility]/ZIP Co de Phone Number [address] [address] * ERYTHROCYTE SEDIMENTATION RATE (08/16/2024 3:23 PM [employer]) Erythrocyte Sedimentation Rate Westergren 11 < OR = 30 mm/h [facility] Comment: Test Performed at: [facility] [address] GONSALO SPIVEY MD 08/16/2024 3:23 PM [employer] 08/16/2024 3:23 PM [employer] Eliza Daly MD LAB - HEMATOLO GY ORDERABLES [address] [address] * (ABNORMAL) CBC WITH DIFFERENTIAL (08/16/2024 3:23 PM [employer]) White Blood Cell Count 4.8 3.8 - 10.8 Thousand/ uL [facility] RBC 4.38 3.80 - 5.10 Million/u L [facility] Hemoglobin 12.8 11.7 - 15.5 g/dL [facility] Hematocrit 40.1 35.0 - 45.0 % [facility] MCV 91.6 80.0 - 100.0 fL [facility] MCH 29.2 27.0 - 33.0 pg [facility] MCHC 31.9(L) 32.0 - 36.0 g/dL [facility] Comment: For adults, a slight decrease in the calculated MCHC value (in the range of 30 to 32 g/dL) is most likely not clinically significant; however, it should be interpreted with caution in correlation with other red cell parameters and the patient's clinical condition. RDW 13.0 11.0 - 15.0 % [facility] Platelet Count 199 140 - 400 Thousand/ uL [facility] MPV 10.4 7.5 - 12.5 fL [facility] Neutrophil Absolute 2822 1500 - 7800 cells/uL [facility] Lymphocytes Absolute 1224 850 - 3900 cells/uL [facility] Absolute Monocytes 586 200 - 950 cells/uL [facility] Eosinophils Absolute 130 15 - 500 cells/uL [facility] Basophils Absolute 38 0 - 200 cells/uL [facility] Granulocytes % 58.8 % [facility] Lymphocytes % 25.5 % [facility] Monocytes % 12.2 % [facility] Eosinophils % 2.7 % [facility] Basophils % 0.8 % [facility] Comment: Test Performed at: [facility] [address] GONSALO SPIVEY MD 08/16/2024 3:23 PM [employer] 08/16/2024 3:23 PM [employer] Eliza Daly MD LAB - HEMATOLO GY ORDERABLES Performing Organization Address [facility] Co de Phone Number [address] [address] * COMPREHENSIVE METABOLIC PANEL (08/16/2024 3:23 PM [employer]) Glucose 82 65 - 99 mg/dL [facility] Comment: Fasting reference interval BUN 13 7 - 25 mg/dL [facility] Creatinine 0.75 0.50 - 1.03 mg/dL [facility] eGFR by Cystatin C 96 > OR = 60 mL/min/1. 73m2 [facility] BUN/Creatinine Ratio SEE NOTE: 6 - 22 (calc) [facility] Comment: Not Reported: BUN and Creatinine are within reference range. Sodium 136 135 - 146 mmol/L [facility] Potassium 3.8 3.5 - 5.3 mmol/L [facility] Chloride 102 98 - 110 mmol/L [facility] CO2 27 20 - 32 mmol/L [facility] Calcium 9.2 8.6 - 10.4 mg/dL [facility] Protein Total 6.8 6.1 - 8.1 g/dL [facility] Albumin 4.2 3.6 - 5.1 g/dL [facility] Globulin Total 2.6 1.9 - 3.7 g/dL (calc) [facility] Albumin/Globulin Ratio 1.6 1.0 - 2.5 (calc) [facility] Bilirubin Total 1.2 0.2 - 1.2 mg/dL [facility] Alkaline Phosphatase 85 37 - 153 U/L [facility] AST 18 10 - 35 U/L [facility] ALT 13 6 - 29 U/L [facility] Comment: Test Performed at: [facility] [address] GONSALO SPIVEY MD 08/16/2024 3:23 PM [employer] 08/16/2024 3:23 PM [employer] Eliza Daly MD LAB - CHEMISTR Y ORDERABLES Performing Organization Address [facility] Co de Phone Number [phone] [place] [address] * HEPATITIS C ANTIBODY (03/25/2016 4:37 PM CDT) Pathologist [facility] Hepatitis C Antibody Non-react [facility] Comment: Hepatitis C Antibody screen indicates no serologic evidence of past or current infection with Hepatitis C Virus. Patients with unexplained liver disease who are immunocompromised or suspected of having acute Hepatitis C infection may benefit from Nucleic Acid Test (ELISHA) for Hepatitis C Viral RNA to confirm Hepatitis C status. Blood specimen (specimen) BLOOD SPECIMEN / Unknown 03/25/2016 4:37 PM CDT 03/25/2016 5:49 PM CDT Eliza Daly MD LAB - CHEMISTR Y ORDERABLES [facility] [address] [phone] from Last 3 Months or Most Recently Relevant to Health Maintenance Care Teams School Admissions Representative Relationship Specialty Start Date End Date Waldemar Fulton DO [address] [place] [address] PCP - General Internal Medicine 10/22/24
--- OUTSIDE RECORDS SUMMARY | 2024-10-30 16:57 | XMS_ITS | Clinical Summary ---
Author Organization [facility] Address [address] [place] [address] Care Team Providers Care Sql Data Architect Name Role Phone Waldemar Fulton Nestor COYNE Primary Care Provider [phone] Source Comments [facility],non-owned Affiliates and Associated Physician Practices is amultiple site organization consisting of ambulatory clinics and hospital sitesin [place], [place], [place] and [place]. This disclosure is being madepursuant to the Care Everywhere program and may not contain all information available regarding this patient. Last updated 18.[facility] Allergies Active Allergy Reactions Criticality Noted Date [...] 06/07/2016 Overview (11/27/2017): ICD-10 update 2015 Other residential (current) drug therapy 6 Gastro-esophageal reflux disease without esophag itis 03/07/2016 Hypothyroidism 03/07/2016 Encounters Date Type Department Care Team Description 10/11/2024 Orders Only [facility] - [facility]ology [address] [place] [phone] Eliza Daly MD Rheumatoid arthritis 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 factor (HCC); Encounter for long-term (current) use of high-risk medication; Encounter for therapeutic drug level monitoring 08/23/2024 Orders Only [facility] - [facility]umatology [address] [address] Eliza Daly MD Rheumatoid arthritis 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 factor (HCC); Encounter for long-term (current) use of high-risk medication; Encounter for therapeutic drug level monitoring 08/19/2024 12:40 PM PHYSICAL EDUCATION AIDE Office Visit [facility] - Rheumatology [address] [place] [phone] Eliza Daly MD Rheumatoid arthritis 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 factor (HCC) (Primary Dx); Encounter for long-term (current) use of high-risk medication; Encounter for therapeutic drug level monitoring 08/19/2024 Travel 08/16/2024 Orders Only [facility] - Rheumatology [address] [place] [phone] Eliza Daly MD 08/16/2024 Telephone [facility] - Rheumatology [address] [place] [phone] Eliza Daly MD Change In Condition/behavior from Last 3 Months Immunizations Name Administration Dates Next Due INFLUENZA VACCINE, TRIV. (AF LURIA, FLUZONE TRIVALENT; 6MO+) (IIV3) 06/28/2016 INFLUENZA VACCINE, QUADR. (F LUZONE; FLULAVAL; FLUARIX; AFLURIA QUADRIVALENT; 6MO+), 0.5 ML (IIV4) 06/21/2019 iNFLUENZA VACCINE, RECOM-AGUILERA, QUADR. (FLUBLOCK QUADRIVALENT; 18Y+) (RIV4) 08/01/2022 Family History Medical History Relation Name Comments Heart Disease Father Status: Alive Diabetes Mother Heart Disease Mother Status: Deceas ed Hypertension Sister Relation Name Status Comments Father Mother Sister Social History Tobacco Use Types Packs/Day Years [...] Comments Blood Pressure 154/92 08/19/2024 12:42 PM PHYSICAL EDUCATION AIDE Pulse 74 08/19/2024 12:42 PM PHYSICAL EDUCATION AIDE Temperature 36.6 C (97.8 F) 08/19/2024 12:42 PM PHYSICAL EDUCATION AIDE Respiratory Rate 16 06/05/2023 12:42 PM CDT Oxygen Saturation 96% 08/19/2024 12:42 PM PHYSICAL EDUCATION AIDE Inhaled Oxygen Concentration - - Weight 58.7 kg (129 lb 6.4 oz) 08/19/2024 12:42 PM PHYSICAL EDUCATION AIDE Height 160 cm (5' 3 ) 06/05/2023 12:42 PM CDT Body Mass Index 22.92 06/05/2023 12:42 PM CDT Plan of Treatment Upcoming Encounters Date Type Department Care Team (Late st Contact Info) Description 01/06/2025 11:00 AM CDT Office Visit [facility] - [facility]ology [address] [place] [address] Eliza Daly MD [address] [phone] Health Maintenance Due Date Last Done Comments COLOGUARD (AGES 45-75) - COLON CA SCREENING 1973 COLON MONITORING 1973 COLONOSCOPY - COLON CA SCREENING 1973 CT COLONOGRAPHY - COLON CA SCREENING 1973 Colorectal Cancer Screening 1973 FIT - COLON CA SCREENING 1973 FLEX SIG - COLON CA SCREENING 1973 LIPID TESTING 1973 MAMMOGRAM 1973 PAP SMEAR 1973 HIV SCREENING 1988 DTAP/TDAP/TD VACCINES (1 - Tdap) 1992 HEPATITIS B VACCINE (1 of 3 - 19+ 3-dose series) 1992 PNEUMOCOCCAL VACCINE 50+ (1 of 1 - PCV) 2023 ZOSTER VACCINE (1 of 2) 2023 COVID-19 VACCINE (1 - 2023- season) 2024 DEPRESSION SCREENING 08/28/2024 HEPATITIS C SCREENING Completed 03/25/2016 INFLUENZA VACCINE Completed 07/01/2024, , 06/21/2019, Additional history exists HIB VACCINE Aged Out No longer eligi ble based on patient's age to complete this topic HPV VACCINE Aged Out No longer eligi ble based on patient's age to complete this topic MENINGOCOCCAL (Group B) VACCINE Aged Out No longer eligible based on patient's age to complete this topic MENINGOCOCCAL VACCINE Aged Out No aris mackenzie eligible based on patient's age to complete this topic Procedures Procedure Name Priority Date/Time Associated Diagnosis Comments QUANTIFERON-TB GOLD PLUS 1-TUBE 08/16/2024 3:24 PM PHYSICAL EDUCATION AIDE C-REACTIVE PROTEIN 08/16/2024 3: 23 PM PHYSICAL EDUCATION AIDE URINALYSIS W/MICROSCOPIC REFLEX TO CULTURE 08/16/2024 3:23 PM PHYSICAL EDUCATION AIDE CBC W AUTO DIFFERENTIAL 08/16/2024 3:23 PM PHYSICAL EDUCATION AIDE ERYTHROCYTE SEDIMENTATION RATE 08/16/2024 3:23 PM PHYSICAL EDUCATION AIDE COMPREHENSIVE METABOLIC PANEL 08/16/2024 3:23 PM PHYSICAL EDUCATION AIDE CULTURE URINE REFLEXED III 08/16/2024 3:23 PM PHYSICAL EDUCATION AIDE HEPATITIS C ANTIBODY Routine 03/25/2016 4:37 PM CDT from Last 3 Months or Most Recently Relevant to Health Maintenance Results * QUANTIFERON-TB GOLD PLUS 1-TUBE (08/16/2024 3:24 PM PHYSICAL EDUCATION AIDE) [facility] QuantiFERON TB Gold Plus NEGATIVE NEGATIVE [facility] [...] T-lymphocytes. For additional information, please refer to https://education.Exercise.com/faq/MOZ339 (This link is being provided for informational/ educational purposes only.) Test Performed at: [facility] [address] [place] [address] GONSALO SPIVEY MD 08/16/2024 3:24 PM PHYSICAL EDUCATION AIDE 08/16/2024 3:24 PM PHYSICAL EDUCATION AIDE Eliza Daly MD LAB - CHEMISTR Y ORDERABLES Performing Organization Address [facility] Co de Phone Number [address] [address] * CULTURE URINE REFLEXED III (08/16/2024 3:23 PM PHYSICAL EDUCATION AIDE) Reflexive Urine Culture See Below [facility] Comment: NO CULTURE INDICATED Test Performed at: [email or web address] [address] GONSALO SPIVEY MD 08/16/2024 3:23 PM PHYSICAL EDUCATION AIDE 08/16/2024 3:23 PM PHYSICAL EDUCATION AIDE Eliza Daly MD LAB - MICROBIO LOGY ORDERABLES Performing Organization Address [facility] Co de Phone Number [address] [address] * URINALYSIS W/MICROSCOPIC REFLEX TO CULTURE (08/16/2024 3:23 PM PHYSICAL EDUCATION AIDE) Color UA YELLOW YELLOW [facility] Appearance CLEAR CLEAR [facility] Specific [place] UA 1.013 1.001 - 1.035 [facility] pH [...] elements seen were reported. Test Performed at: [email or web address] [address] GONSALO SPIVEY MD 08/16/2024 3:23 PM PHYSICAL EDUCATION AIDE 08/16/2024 3:23 PM PHYSICAL EDUCATION AIDE Eliza Daly MD LAB - URINALYS IS ORDERABLES Performing Organization Address [facility] Co de Phone Number [address] [address] * C-REACTIVE PROTEIN (08/16/2024 3:23 PM PHYSICAL EDUCATION AIDE) C-Reactive Protein 5.1 <8.0 mg/L [facility] Comment: Test Performed at: [facility] [place] [address] [place] [address] GONSALO SPIVEY MD 08/16/2024 3:23 PM PHYSICAL EDUCATION AIDE 08/16/2024 3:23 PM PHYSICAL EDUCATION AIDE Eliza Daly MD LAB - CHEMISTR Y ORDERABLES Performing Organization Address [facility] Co de Phone Number [address] [address] * ERYTHROCYTE SEDIMENTATION RATE (08/16/2024 3:23 PM PHYSICAL EDUCATION AIDE) Erythrocyte Sedimentation Rate Westergren 11 < OR = 30 mm/h [facility] Comment: Test Performed at: [email or web address] [address] GONSALO SPIVEY MD 08/16/2024 3:23 PM PHYSICAL EDUCATION AIDE 08/16/2024 3:23 PM PHYSICAL EDUCATION AIDE Eliza Daly MD LAB - HEMATOLO GY ORDERABLES Performing Organization Address [facility] Co de Phone Number [address] [address] * (ABNORMAL) CBC WITH DIFFERENTIAL (08/16/2024 3:23 PM PHYSICAL EDUCATION AIDE) [facility] White Blood Cell Count 4.8 3.8 - [...] 0.8 % [facility] Comment: Test Performed at: [email or web address] [address] GONSALO SPIVEY MD 08/16/2024 3:23 PM PHYSICAL EDUCATION AIDE 08/16/2024 3:23 PM PHYSICAL EDUCATION AIDE Eliza Daly MD LAB - HEMATOLO GY ORDERABLES [address] [address] * COMPREHENSIVE METABOLIC PANEL (08/16/2024 3:23 PM PHYSICAL EDUCATION AIDE) [facility] Glucose 82 65 - 99 mg/dL [facility] [...] 29 U/L [facility] Comment: Test Performed at: [email or web address] [address] GONSALO SPIVEY MD 08/16/2024 3:23 PM PHYSICAL EDUCATION AIDE 08/16/2024 3:23 PM PHYSICAL EDUCATION AIDE Eliza Daly MD LAB - CHEMISTR Y ORDERABLES Performing Organization Address [facility] Co de Phone Number [address] [address] * HEPATITIS C ANTIBODY (03/25/2016 4:37 PM CDT) Hepatitis C Antibody Non-react [facility] Comment: Hepatitis C Antibody screen indicates no [...] Daly MD LAB - [place] [address], [facility] [phone] from Last 3 Months or Most Recently Relevant to Health Maintenance Care Teams Sql Data Architect Relationship Specialty Start Date End Date Waldemar Fulton DO [address] [place] [address] PCP - General Internal Medicine 10/22/24
--- OUTSIDE RECORDS SUMMARY | 2024-10-30 16:57 | XMS_ITS | Encounter Summary ---
Author Organization [facility] Address [address] [place] [address] Care Team Providers Care Maternity Floor Supervisor Name Role Phone Waldemar Fulton Nestor COYNE Primary Care Provider [phone] Reason for Visit * Reason Onset Date Comments MEDICATION REFILL 07/02/2018 Encounter Details Date Type Department Care Team (Late st Contact Info) Description 07/02/2018 Refill [facility] General Internal Medicine [address] [facility] [address] [place] [address] Madhav Alvarez DO [address] [facility] [address] [place] [address] MEDICATION REFILL Social History Tobacco Use Types Packs/Day Years Used Date Smoking Tobacco: Never Smokeless Tobacco: Never Alcohol Use Standard Drinks/Week Comments No 0 (1 standard drink = 0.6 oz pur e alcohol) Sex and Gender Information Value Date Recorded Sex Assigned at Not on file Gender Identity Not on file Sexual Orientation Not on file documented as of this encounter Plan of Treatment Upcoming Encounters Date Type Department Care Team (Late st Contact Info) Description 01/06/2025 11:00 AM CDT Office Visit [facility] [address] [place] [address] Eliza Daly MD [address] [place] [phone] documented as of this encounter Visit Diagnoses Not on filedocumented in this encounter Care Teams Maternity Floor Supervisor Relationship Specialty Start Date End Date Waldemar Fulton DO [address] [place] [phone] PCP - General Internal Medicine 10/22/24 documented as of this encounter
--- OUTSIDE RECORDS SUMMARY | 2024-10-30 16:57 | XMS_ITS | Clinical Summary ---
Author Organization [facility] Address [address] [place] [place] [address] Phone Care Team Providers Care Spray Machine Loader Name Role Phone RODERICK AMARO DO Primary Care Provider [phone] JESUS ALBERTO CHINCHILLA, PAULY Melendrez Unavailable [phone] Reason for Visit and Chief Complaint PELVIC W/TVT Problems Includes: Problems addressed during this encounter and other active Problems All Visits Onset Date Resolved Date Provider Condition S tatus Anemia 01/25/2019 YANY DANIELLE [facility]NP-BC Active Last Documented On 01/25/2019 10:52AM ; [facility] Note: secondary to menorrhagia - Rheumatoid Arthritis 07/08/2016 YANY DANIELLE WHNP-BC Active Last Documented On 6 9:01AM ; [facility] Hyperlipidemia 06/27/2014 YANY DANIELLE WHNP-BC Active Last Documented On 4 9:59AM ; [facility] Note: diet controlled Hypothyroidism 04/25/2011 YANY DANIELLE WHNP-BC Active Last Documented On 1 7:17AM ; [facility] [...] 8:50AM By DEEPAK NELSON ; [facility] PredniSONE 5MG Oral Tablet 07/27/2018 Provider: Diagnosis: Last Documented On 07/27/2018 8:51AM By DEEPAK NELSON ; [facility] Arava 10MG Oral Tablet 07/14/2017 Provider: Diagnosis: Last Documented On 07/14/2017 9:21AM By DEEPAK NELSON ; [facility] Levothyroxine Sodium 100 MCG Tablet 07/08/2016 Provi kymberly: Diagnosis: Last Documented On 07/08/2016 8:57AM By DEEPAK NELSON ; [facility] Meloxicam 15 MG Tablet 07/08/2016 Provider: Diagnosis: Last Documented On 07/08/2016 8:58AM By DEEPAK NELSON ; [facility] Hydroxychloroquine Sulfate 200 MG Tablet 07/08/2016 Provider: Diagnosis: Last Documented On 07/08/2016 8:59AM By DEEPAK NELSON ; [facility] Singulair 10 MG Tablet 07/03/2015 Provider: Diagnosis: Last Documented On 07/03/2015 8:59AM By DEEPAK NELSON ; [facility] Fluticasone Propionate 50 MCG/ACT NA SUSP 06/21/2013 Provider: Diagnosis: Last Documented On 06/21/2013 10:25AM By MAYA WAHL LPN ; [facility] raNITIdine HCl 300 MG OR CAPS 04/25/2011 Provider: Diagnosis: Last Documented On 04/25/2011 9:14AM By DEEPAK NELSON ; [facility] Medications Administered Includes: Administered Medications from this [...] Active Last Documented On 7 9:20AM ; [facility] Encounters Encounter Provider Location Date Check-In Time Check-Out Time Diagnosis PELVIC W/TVT [facility] [employer] 9 9:02AM 9:45AM Insurance Includes: Active Insurance Policies Plan Name Member ID Group # Subscriber Relationship Effect ilan Dates 1 - [facility] CLAIMS DEPT [id number] KORI MUSTAFA Self Clinical Notes Includes: Clinical Notes from this encounter No Clinical Notes Recorded
--- OUTSIDE RECORDS SUMMARY | 2024-10-30 16:57 | XMS_ITS | Patient Health Summary ---
Author Organization [facility] Address [address] [place] [address] Care Team Providers Care Data Warehouse Specialist Name Role Phone Waldemar Fulton Nestor COYNE Primary Care Provider [phone] [facility],non-owned Affiliates and Associated Physician Practices is amultiple site organization consisting of ambulatory clinics and hospital sitesin [place], [place], [place] and [place]. This disclosure is being madepursuant to the Care Everywhere program and may not contain all information available regarding this patient. Last updated 18.[facility] Allergies * Codeine(Other) -Low Criticality * Methotrexate(Other) -Low Criticality Medications * Be aware that medications may not be up to date on this document. Alwaysverify current medications with the patient. * fluticasone propionate (FLONASE) 50 MCG/ACT nasal spray(Started 05/26/2016) 2 (two) sprays DAILY 3 refills left * montelukast (SINGULAIR) 10 MG tablet(Started 02/12/2016) 5 refills left * amLODIPine (NORVASC) 10 MG tablet(Started 02/27/2021) Take 1 (one) tablet by mouth once daily * famotidine (PEPCID) 20 MG tablet(Started 03/07/2021) TAKE 1 TABLET BY MOUTH TWICE DAILY NEEDED FOR REFLUX * metoprolol tartrate (LOPRESSOR) 50 MG tablet(Started 03/24/2021) Take 1 (one) tablet by mouth every 12 hours * levothyroxine (Synthroid) 112 MCG tablet(Started 04/28/2024) Take 1 (one) tablet by mouth once daily * etanercept (Enbrel SureClick) 50 MG/ML auto-injector pen(Started 05/06/2024) Inject 50 (fifty) mg subcutaneously every 7 days 6 refills by 05/06/2025 * leflunomide (Arava) 10 MG tablet(Started 05/06/2024) Take 1 (one) tablet by mouth once daily 1 refill by 05/06/2025 * methylPREDNISolone (Medrol Dosepak) 4 MG tablet(Started 07/18/2024) Take by mouth as directed Take as directed by mouth per package instructions. 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 (AFLURIA, FLUZONE TRIVALENT; 6MO+) (IIV3)(Given 06/28/2016) * INFLUENZA VACCINE, QUADR. (FLUZONE; FLULAVAL; FLUARIX; AFLURIA QUADRIVALENT; 6MO+), 0.5 ML (IIV4)(Given 06/21/2019) * iNFLUENZA VACCINE, RECOM-AGUILERA, QUADR. 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 Height 160 cm (5' 3 ) 06/05/2023 12:42 PM CDT Body Mass Index 22.92 06/05/2023 12:42 PM CDT Procedures * QUANTIFERON-TB GOLD PLUS 1-TUBE(Performed 08/16/2024) * C-REACTIVE PROTEIN(Performed 08/16/2024) * URINALYSIS W/MICROSCOPIC REFLEX TO CULTURE(Performed 08/16/2024) * CBC W AUTO DIFFERENTIAL(Performed 08/16/2024) * ERYTHROCYTE SEDIMENTATION RATE(Performed 08/16/2024) * COMPREHENSIVE METABOLIC PANEL(Performed 08/16/2024) * CULTURE URINE REFLEXED III(Performed 08/16/2024) * C-REACTIVE PROTEIN(Performed 05/02/2024) * URINALYSIS W/MICROSCOPIC REFLEX TO CULTURE(Performed 05/02/2024) * CBC W AUTO DIFFERENTIAL(Performed 05/02/2024) * ERYTHROCYTE SEDIMENTATION RATE(Performed 05/02/2024) * COMPREHENSIVE METABOLIC PANEL(Performed 05/02/2024) * CULTURE URINE REFLEXED III(Performed 05/02/2024) * URINALYSIS W/MICROSCOPIC REFLEX TO CULTURE(Performed 01/02/2024) Performed for Rheumatoid arthritis 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 factor (HCC), Encounter for long-term (current) use of high-risk medication, Encounter for therapeutic drug level monitoring * ERYTHROCYTE SEDIMENTATION RATE(Performed 01/02/2024) Performed for Rheumatoid arthritis 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 factor (HCC), Encounter for long-term (current) use of high-risk medication, Encounter for therapeutic drug level monitoring * C-REACTIVE PROTEIN(Performed 01/02/2024) Performed for Rheumatoid arthritis 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 factor (HCC), Encounter for long-term (current) use of high-risk medication, Encounter for therapeutic drug level monitoring * COMPREHENSIVE METABOLIC PANEL(Performed 01/02/2024) Performed for Rheumatoid arthritis 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 factor (HCC), Encounter for long-term (current) use of high-risk medication, Encounter for therapeutic drug level monitoring * CBC W AUTO DIFFERENTIAL(Performed 01/02/2024) Performed for Rheumatoid arthritis 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 factor (HCC), Encounter for long-term (current) use of high-risk medication, Encounter for therapeutic drug level monitoring * CULTURE URINE(Performed 01/02/2024) * CULTURE URINE REFLEXED II(Performed 01/02/2024) * C-REACTIVE PROTEIN(Performed 09/18/2023) * URINALYSIS W/MICROSCOPIC REFLEX TO CULTURE(Performed 09/18/2023) * CBC W AUTO DIFFERENTIAL(Performed 09/18/2023) * ERYTHROCYTE SEDIMENTATION RATE(Performed 09/18/2023) * COMPREHENSIVE METABOLIC PANEL(Performed 09/18/2023) * CULTURE URINE REFLEXED III(Performed 09/18/2023) * EYE EXAM(Performed 06/20/2023) * XR WRIST RIGHT 2VW(Performed 05/29/2023) Performed for Rheumatoid arthritis 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 factor (HCC), Encounter for long-term (current) use of high-risk medication, Encounter for therapeutic drug level monitoring * XR WRIST LEFT 2VW(Performed 05/29/2023) Performed for Rheumatoid arthritis 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 factor (HCC), Encounter for long-term (current) use of high-risk medication, Encounter for therapeutic drug level monitoring * XR HAND LEFT 2VW(Performed 05/29/2023) Performed for Rheumatoid arthritis 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 factor (HCC), Encounter for long-term (current) use of high-risk medication, Encounter for therapeutic drug level monitoring * XR HAND RIGHT 2VW(Performed 05/29/2023) Performed for Rheumatoid arthritis 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 factor (HCC), Encounter for long-term (current) use of high-risk medication, Encounter for therapeutic drug level monitoring * XR CHEST 2VW(Performed 05/29/2023) Performed for Rheumatoid arthritis 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 factor (HCC), Encounter for long-term (current) use of high-risk medication, Encounter for therapeutic drug level monitoring * C-REACTIVE PROTEIN(Performed 05/26/2023) * URINALYSIS W/MICROSCOPIC REFLEX TO CULTURE(Performed 05/26/2023) * CBC W AUTO DIFFERENTIAL(Performed 05/26/2023) * ERYTHROCYTE SEDIMENTATION RATE(Performed 05/26/2023) * COMPREHENSIVE METABOLIC PANEL(Performed 05/26/2023) * CULTURE URINE REFLEXED III(Performed 05/26/2023) * BETA-2 GLYCOPROTEIN 1 ANTIBODY IGG(Performed 02/14/2023) * BETA-2 GLYCOPROTEIN 1 ANTIBODY IGM(Performed 02/14/2023) * BETA-2 GLYCOPROTEIN 1 ANTIBODY IGA(Performed 02/14/2023) * CARDIOLIPIN ANTIBODY IGM(Performed 02/14/2023) * CARDIOLIPIN ANTIBODY IGG(Performed 02/14/2023) * CARDIOLIPIN ANTIBODY IGA(Performed 02/14/2023) * HEXAGONAL PHASE CONFIRM REFLEXED(Performed 02/14/2023) * LUPUS ANTICOAGULANT PANEL W RFLX(Performed 02/14/2023) * QUANTIFERON-TB GOLD PLUS 1-TUBE(Performed 02/14/2023) * C-REACTIVE PROTEIN(Performed 02/14/2023) * URINALYSIS W/MICROSCOPIC REFLEX TO CULTURE(Performed 02/14/2023) * CBC W AUTO DIFFERENTIAL(Performed 02/14/2023) * ERYTHROCYTE SEDIMENTATION RATE(Performed 02/14/2023) * COMPREHENSIVE METABOLIC PANEL(Performed 02/14/2023) * CULTURE URINE REFLEXED III(Performed 02/14/2023) * C-REACTIVE PROTEIN(Performed 11/11/2022) * URINALYSIS W/MICROSCOPIC REFLEX TO CULTURE(Performed 11/11/2022) * CBC W AUTO DIFFERENTIAL(Performed 11/11/2022) * ERYTHROCYTE SEDIMENTATION RATE(Performed 11/11/2022) * COMPREHENSIVE METABOLIC PANEL(Performed 11/11/2022) * CULTURE URINE(Performed 11/11/2022) * CULTURE URINE REFLEXED II(Performed 11/11/2022) * URINALYSIS W/MICROSCOPIC REFLEX TO CULTURE(Performed 08/31/2022) Performed for Rheumatoid arthritis 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 factor (HCC), Encounter for long-term (current) use of high-risk medication, Encounter for therapeutic drug level monitoring * ERYTHROCYTE SEDIMENTATION RATE(Performed 08/31/2022) Performed for Rheumatoid arthritis 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 factor (HCC), Encounter for long-term (current) use of high-risk medication, Encounter for therapeutic drug level monitoring * C-REACTIVE PROTEIN(Performed 08/31/2022) Performed for Rheumatoid arthritis 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 factor (HCC), Encounter for long-term (current) use of high-risk medication, Encounter for therapeutic drug level monitoring * COMPREHENSIVE METABOLIC PANEL(Performed 08/31/2022) Performed for Rheumatoid arthritis 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 factor (HCC), Encounter for long-term (current) use of high-risk medication, Encounter for therapeutic drug level monitoring * CBC W AUTO DIFFERENTIAL(Performed 08/31/2022) Performed for Rheumatoid arthritis 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 factor (HCC), Encounter for long-term (current) use of high-risk medication, Encounter for therapeutic drug level monitoring * CYCLIC CITRULLINATED PEPTIDE(CCP) AB IGG(Performed 08/31/2022) Performed for Rheumatoid arthritis 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 factor (HCC), Encounter for long-term (current) use of high-risk medication, Encounter for therapeutic drug level monitoring, Chronic neck pain, Polyarthralgia * RHEUMATOID FACTOR BLOOD QUANTITATIVE(Performed 08/31/2022) Performed for Rheumatoid arthritis 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 factor (HCC), Encounter for long-term (current) use of high-risk medication, Encounter for therapeutic drug level monitoring, Chronic neck pain, Polyarthralgia * CULTURE URINE(Performed 08/31/2022) * CULTURE URINE REFLEXED II(Performed 08/31/2022) * ERYTHROCYTE SEDIMENTATION RATE(Performed 07/30/2022) Performed for Rheumatoid arthritis 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 factor (HCC), Encounter for long-term (current) use of high-risk medication, Encounter for therapeutic drug level monitoring * C-REACTIVE PROTEIN(Performed 07/30/2022) Performed for Rheumatoid arthritis 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 factor (HCC), Encounter for long-term (current) use of high-risk medication, Encounter for therapeutic drug level monitoring * COMPREHENSIVE METABOLIC PANEL(Performed 07/30/2022) Performed for Rheumatoid arthritis 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 factor (HCC), Encounter for long-term (current) use of high-risk medication, Encounter for therapeutic drug level monitoring * CBC W AUTO DIFFERENTIAL(Performed 07/30/2022) Performed for Rheumatoid arthritis 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 factor (HCC), Encounter for long-term (current) use of high-risk medication, Encounter for therapeutic drug level monitoring * URINALYSIS W/MICROSCOPIC REFLEX TO CULTURE(Performed 05/31/2022) Performed for Rheumatoid arthritis 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 factor (HCC), Encounter for long-term (current) use of high-risk medication, Encounter for therapeutic drug level monitoring * ERYTHROCYTE SEDIMENTATION RATE(Performed 05/31/2022) Performed for Rheumatoid arthritis 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 factor (HCC), Encounter for long-term (current) use of high-risk medication, Encounter for therapeutic drug level monitoring * C-REACTIVE PROTEIN(Performed 05/31/2022) Performed for Rheumatoid arthritis 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 factor (HCC), Encounter for long-term (current) use of high-risk medication, Encounter for therapeutic drug level monitoring * COMPREHENSIVE METABOLIC PANEL(Performed 05/31/2022) Performed for Rheumatoid arthritis 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 factor (HCC), Encounter for long-term (current) use of high-risk medication, Encounter for therapeutic drug level monitoring * CBC W AUTO DIFFERENTIAL(Performed 05/31/2022) Performed for Rheumatoid arthritis 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 factor (HCC), Encounter for long-term (current) use of high-risk medication, Encounter for therapeutic drug level monitoring * CULTURE URINE(Performed 05/31/2022) * CULTURE URINE REFLEXED II(Performed 05/31/2022) * IMAGING/RADIOLOGY/XRAY RESULTS ORDER(Performed 04/11/2022) * URINALYSIS W/MICROSCOPIC REFLEX TO CULTURE(Performed 03/08/2022) Performed for Rheumatoid arthritis 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 factor (HCC), Encounter for long-term (current) use of high-risk medication, Encounter for therapeutic drug level monitoring * CULTURE URINE(Performed 03/08/2022) * CULTURE URINE REFLEXED II(Performed 03/08/2022) * ERYTHROCYTE SEDIMENTATION RATE(Performed 03/08/2022) Performed for Rheumatoid arthritis 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 factor (HCC), Encounter for long-term (current) use of high-risk medication, Encounter for therapeutic drug level monitoring * C-REACTIVE PROTEIN(Performed 03/08/2022) Performed for Rheumatoid arthritis 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 factor (HCC), Encounter for long-term (current) use of high-risk medication, Encounter for therapeutic drug level monitoring * COMPREHENSIVE METABOLIC PANEL(Performed 03/08/2022) Performed for Rheumatoid arthritis 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 factor (HCC), Encounter for long-term (current) use of high-risk medication, Encounter for therapeutic drug level monitoring * CBC W AUTO DIFFERENTIAL(Performed 03/08/2022) Performed for Rheumatoid arthritis 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 factor (HCC), Encounter for long-term (current) use of high-risk medication, Encounter for therapeutic drug level monitoring * ERYTHROCYTE SEDIMENTATION RATE(Performed 01/20/2022) Performed for Rheumatoid arthritis 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 factor (HCC), Encounter for long-term (current) use of high-risk medication, Encounter for therapeutic drug level monitoring * C-REACTIVE PROTEIN(Performed 01/20/2022) Performed for Rheumatoid arthritis 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 factor (HCC), Encounter for long-term (current) use of high-risk medication, Encounter for therapeutic drug level monitoring * COMPREHENSIVE METABOLIC PANEL(Performed 01/20/2022) Performed for Rheumatoid arthritis 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 factor (HCC), Encounter for long-term (current) use of high-risk medication, Encounter for therapeutic drug level monitoring * CBC W AUTO DIFFERENTIAL(Performed 01/20/2022) Performed for Rheumatoid arthritis 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 factor (HCC), Encounter for long-term (current) use of high-risk medication, Encounter for therapeutic drug level monitoring * QUANTIFERON-TB GOLD PLUS 1-TUBE(Performed 12/30/2021) * C-REACTIVE PROTEIN(Performed 10/06/2021) * CBC W AUTO DIFFERENTIAL(Performed 10/06/2021) * ERYTHROCYTE SEDIMENTATION RATE(Performed 10/06/2021) * COMPREHENSIVE METABOLIC PANEL(Performed 10/06/2021) * IMAGING/RADIOLOGY/XRAY RESULTS ORDER(Performed 08/12/2021) * URINALYSIS W/MICROSCOPIC REFLEX TO CULTURE(Performed 06/25/2021) * CULTURE URINE REFLEXED I(Performed 06/25/2021) * C-REACTIVE PROTEIN(Performed 06/24/2021) * CBC W AUTO DIFFERENTIAL(Performed 06/24/2021) * ERYTHROCYTE SEDIMENTATION RATE(Performed 06/24/2021) * COMPREHENSIVE METABOLIC PANEL(Performed 06/24/2021) * ERYTHROCYTE SEDIMENTATION RATE(Performed 01/19/2021) Performed for Rheumatoid arthritis 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 factor (HCC), Encounter for long-term (current) use of high-risk medication, Encounter for therapeutic drug level monitoring * C-REACTIVE PROTEIN(Performed 01/19/2021) Performed for Rheumatoid arthritis 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 factor (HCC), Encounter for long-term (current) use of high-risk medication, Encounter for therapeutic drug level monitoring * COMPREHENSIVE METABOLIC PANEL(Performed 01/19/2021) Performed for Rheumatoid arthritis 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 factor (HCC), Encounter for long-term (current) use of high-risk medication, Encounter for therapeutic drug level monitoring * CBC W AUTO DIFFERENTIAL(Performed 01/19/2021) Performed for Rheumatoid arthritis 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 factor (HCC), Encounter for long-term (current) use of high-risk medication, Encounter for therapeutic drug level monitoring * C-REACTIVE PROTEIN(Performed 09/18/2020) * CBC W AUTO DIFFERENTIAL(Performed 09/18/2020) * ERYTHROCYTE SEDIMENTATION RATE(Performed 09/18/2020) * URINALYSIS W/MICROSCOPIC REFLEX TO CULTURE(Performed 09/18/2020) * COMPREHENSIVE METABOLIC PANEL(Performed 09/18/2020) * CULTURE URINE REFLEXED I(Performed 09/18/2020) * URINALYSIS W/MICROSCOPIC REFLEX TO CULTURE(Performed 06/30/2020) * CULTURE URINE REFLEXED I(Performed 06/30/2020) * ERYTHROCYTE SEDIMENTATION RATE(Performed 06/10/2020) Performed for Rheumatoid arthritis 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 factor (HCC), Encounter for long-term (current) use of high-risk medication, Encounter for therapeutic drug level monitoring * C-REACTIVE PROTEIN(Performed 06/10/2020) Performed for Rheumatoid arthritis 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 factor (HCC), Encounter for long-term (current) use of high-risk medication, Encounter for therapeutic drug level monitoring * COMPREHENSIVE METABOLIC PANEL(Performed 06/10/2020) Performed for Rheumatoid arthritis 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 factor (HCC), Encounter for long-term (current) use of high-risk medication, Encounter for therapeutic drug level monitoring * CBC W AUTO DIFFERENTIAL(Performed 06/10/2020) Performed for Rheumatoid arthritis 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 factor (HCC), Encounter for long-term (current) use of high-risk medication, Encounter for therapeutic drug level monitoring * C-REACTIVE PROTEIN(Performed 03/11/2020) * CBC W AUTO DIFFERENTIAL(Performed 03/11/2020) * URINALYSIS W/MICROSCOPIC REFLEX TO CULTURE(Performed 03/11/2020) * ERYTHROCYTE SEDIMENTATION RATE(Performed 03/11/2020) * COMPREHENSIVE METABOLIC PANEL(Performed 03/11/2020) * CULTURE URINE REFLEXED I(Performed 03/11/2020) * QUANTIFERON-TB GOLD PLUS 1-TUBE(Performed 12/05/2019) * C-REACTIVE PROTEIN(Performed 12/03/2019) * ERYTHROCYTE SEDIMENTATION RATE(Performed 12/03/2019) * URINALYSIS W/MICROSCOPIC REFLEX TO CULTURE(Performed 12/03/2019) * COMPREHENSIVE METABOLIC PANEL(Performed 12/03/2019) * CBC W AUTO DIFFERENTIAL(Performed 12/03/2019) * CULTURE URINE REFLEXED I(Performed 12/03/2019) * URINALYSIS W/MICROSCOPIC REFLEX TO CULTURE(Performed 10/16/2019) Performed for Rheumatoid arthritis 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 factor (HCC), Encounter for therapeutic drug level monitoring, Encounter for long-term (current) use of high-risk medication * ERYTHROCYTE SEDIMENTATION RATE(Performed 10/16/2019) Performed for Rheumatoid arthritis 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 factor (HCC), Encounter for therapeutic drug level monitoring, Encounter for long-term (current) use of high-risk medication * C-REACTIVE PROTEIN(Performed 10/16/2019) Performed for Rheumatoid arthritis 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 factor (HCC), Encounter for therapeutic drug level monitoring, Encounter for long-term (current) use of high-risk medication * COMPREHENSIVE METABOLIC PANEL(Performed 10/16/2019) Performed for Rheumatoid arthritis 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 factor (HCC), Encounter for therapeutic drug level monitoring, Encounter for long-term (current) use of high-risk medication * CBC W AUTO DIFFERENTIAL(Performed 10/16/2019) Performed for Rheumatoid arthritis 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 factor (HCC), Encounter for therapeutic drug level monitoring, Encounter for long-term (current) use of high-risk medication * CULTURE URINE REFLEXED I(Performed 10/16/2019) * URINALYSIS W/MICROSCOPIC REFLEX TO CULTURE(Performed 07/31/2019) Performed for Rheumatoid arthritis 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 factor (HCC), Encounter for therapeutic drug level monitoring, Encounter for long-term (current) use of high-risk medication * ERYTHROCYTE SEDIMENTATION RATE(Performed 07/31/2019) Performed for Rheumatoid arthritis 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 factor (HCC), Encounter for therapeutic drug level monitoring, Encounter for long-term (current) use of high-risk medication * C-REACTIVE PROTEIN(Performed 07/31/2019) Performed for Rheumatoid arthritis 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 factor (HCC), Encounter for therapeutic drug level monitoring, Encounter for long-term (current) use of high-risk medication * COMPREHENSIVE METABOLIC PANEL(Performed 07/31/2019) Performed for Rheumatoid arthritis 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 factor (HCC), Encounter for therapeutic drug level monitoring, Encounter for long-term (current) use of high-risk medication * CBC W AUTO DIFFERENTIAL(Performed 07/31/2019) Performed for Rheumatoid arthritis 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 factor (HCC), Encounter for therapeutic drug level monitoring, Encounter for long-term (current) use of high-risk medication * CULTURE URINE REFLEXED I(Performed 07/31/2019) * URINALYSIS W/MICROSCOPIC REFLEX TO CULTURE(Performed 03/21/2019) Performed for Rheumatoid arthritis 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 factor (HCC), Encounter for therapeutic drug level monitoring, Encounter for long-term (current) use of high-risk medication * C-REACTIVE PROTEIN(Performed 03/21/2019) Performed for Rheumatoid arthritis 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 factor (HCC), Encounter for therapeutic drug level monitoring, Encounter for long-term (current) use of high-risk medication * ERYTHROCYTE SEDIMENTATION RATE(Performed 03/21/2019) Performed for Rheumatoid arthritis 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 factor (HCC), Encounter for therapeutic drug level monitoring, Encounter for long-term (current) use of high-risk medication * COMPREHENSIVE METABOLIC PANEL(Performed 03/21/2019) Performed for Rheumatoid arthritis 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 factor (HCC), Encounter for therapeutic drug level monitoring, Encounter for long-term (current) use of high-risk medication * CBC W AUTO DIFFERENTIAL(Performed 03/21/2019) Performed for Rheumatoid arthritis 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 factor (HCC), Encounter for therapeutic drug level monitoring, Encounter for long-term (current) use of high-risk medication * CULTURE URINE REFLEXED I(Performed 03/21/2019) * URINALYSIS W/MICROSCOPIC REFLEX TO CULTURE(Performed 01/25/2019) Performed for Rheumatoid arthritis 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 factor (HCC), Encounter for therapeutic drug level monitoring, Encounter for long-term (current) use of high-risk medication * CULTURE URINE REFLEXED I(Performed 01/25/2019) * C-REACTIVE PROTEIN(Performed 01/11/2019) Performed for Rheumatoid arthritis 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 factor (HCC), Encounter for therapeutic drug level monitoring, Encounter for long-term (current) use of high-risk medication * ERYTHROCYTE SEDIMENTATION RATE(Performed 01/11/2019) Performed for Rheumatoid arthritis 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 factor (HCC), Encounter for therapeutic drug level monitoring, Encounter for long-term (current) use of high-risk medication * COMPREHENSIVE METABOLIC PANEL(Performed 01/11/2019) Performed for Rheumatoid arthritis 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 factor (HCC), Encounter for therapeutic drug level monitoring, Encounter for long-term (current) use of high-risk medication * CBC W AUTO DIFFERENTIAL(Performed 01/11/2019) Performed for Rheumatoid arthritis 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 factor (HCC), Encounter for therapeutic drug level monitoring, Encounter for long-term (current) use of high-risk medication * URINALYSIS W/MICROSCOPIC REFLEX TO CULTURE(Performed 10/31/2018) Performed for Rheumatoid arthritis 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 factor (HCC), Encounter for therapeutic drug level monitoring, Encounter for long-term (current) use of high-risk medication * ERYTHROCYTE SEDIMENTATION RATE(Performed 10/31/2018) Performed for Rheumatoid arthritis 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 factor (HCC), Encounter for therapeutic drug level monitoring, Encounter for long-term (current) use of high-risk medication * COMPREHENSIVE METABOLIC PANEL(Performed 10/31/2018) Performed for Rheumatoid arthritis 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 factor (HCC), Encounter for therapeutic drug level monitoring, Encounter for long-term (current) use of high-risk medication * CBC W AUTO DIFFERENTIAL(Performed 10/31/2018) Performed for Rheumatoid arthritis 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 factor (HCC), Encounter for therapeutic drug level monitoring, Encounter for long-term (current) use of high-risk medication * C-REACTIVE PROTEIN(Performed 10/31/2018) Performed for Rheumatoid arthritis 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 factor (HCC), Encounter for therapeutic drug level monitoring, Encounter for long-term (current) use of high-risk medication * CULTURE URINE REFLEXED I(Performed 10/31/2018) * IMAGING/RADIOLOGY/XRAY RESULTS ORDER(Performed 10/31/2018) * IMAGING/RADIOLOGY/XRAY RESULTS ORDER(Performed 10/24/2018) * QUANTIFERON-TB GOLD PLUS 1-TUBE(Performed 10/23/2018) * URINALYSIS W/MICROSCOPIC REFLEX TO CULTURE(Performed 09/04/2018) Performed for Rheumatoid arthritis 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 factor (HCC), Encounter for therapeutic drug level monitoring, Encounter for long-term (current) use of high-risk medication * C-REACTIVE PROTEIN(Performed 09/04/2018) Performed for Rheumatoid arthritis 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 factor (HCC), Encounter for therapeutic drug level monitoring, Encounter for long-term (current) use of high-risk medication * ERYTHROCYTE SEDIMENTATION RATE(Performed 09/04/2018) Performed for Rheumatoid arthritis 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 factor (HCC), Encounter for therapeutic drug level monitoring, Encounter for long-term (current) use of high-risk medication * COMPREHENSIVE METABOLIC PANEL(Performed 09/04/2018) Performed for Rheumatoid arthritis 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 factor (HCC), Encounter for therapeutic drug level monitoring, Encounter for long-term (current) use of high-risk medication * CBC W AUTO DIFFERENTIAL(Performed 09/04/2018) Performed for Rheumatoid arthritis 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 factor (HCC), Encounter for therapeutic drug level monitoring, Encounter for long-term (current) use of high-risk medication * CULTURE URINE REFLEXED I(Performed 09/04/2018) * URINALYSIS W/MICROSCOPIC REFLEX TO CULTURE(Performed 07/12/2018) Performed for Rheumatoid arthritis 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 factor (HCC), Encounter for therapeutic drug level monitoring, Encounter for long-term (current) use of high-risk medication * C-REACTIVE PROTEIN(Performed 07/12/2018) Performed for Rheumatoid arthritis 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 factor (HCC), Encounter for therapeutic drug level monitoring, Encounter for long-term (current) use of high-risk medication * ERYTHROCYTE SEDIMENTATION RATE(Performed 07/12/2018) Performed for Rheumatoid arthritis 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 factor (HCC), Encounter for therapeutic drug level monitoring, Encounter for long-term (current) use of high-risk medication * COMPREHENSIVE METABOLIC PANEL(Performed 07/12/2018) Performed for Rheumatoid arthritis 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 factor (HCC), Encounter for therapeutic drug level monitoring, Encounter for long-term (current) use of high-risk medication * CBC W AUTO DIFFERENTIAL(Performed 07/12/2018) Performed for Rheumatoid arthritis 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 factor (HCC), Encounter for therapeutic drug level monitoring, Encounter for long-term (current) use of high-risk medication * CULTURE URINE REFLEXED I(Performed 07/12/2018) * C-REACTIVE PROTEIN(Performed 04/24/2018) * ERYTHROCYTE SEDIMENTATION RATE(Performed 04/24/2018) * CBC W AUTO DIFFERENTIAL(Performed 04/24/2018) * URINALYSIS W/MICROSCOPIC REFLEX TO CULTURE(Performed 04/24/2018) * COMPREHENSIVE METABOLIC PANEL(Performed 04/24/2018) * CULTURE URINE REFLEXED I(Performed 04/24/2018) * URINALYSIS W/MICROSCOPIC NO CULTURE(Performed 02/02/2018) * C-REACTIVE PROTEIN(Performed 02/02/2018) Performed for Rheumatoid arthritis with negative rheumatoid factor, involving unspecified site (HCC), Encounter for long-term (current) use of high-risk medication, Encounter for therapeutic drug monitoring * ERYTHROCYTE SEDIMENTATION RATE(Performed 02/02/2018) Performed for Rheumatoid arthritis with negative rheumatoid factor, involving unspecified site (HCC), Encounter for long-term (current) use of high-risk medication, Encounter for therapeutic drug monitoring * CBC W/O DIFFERENTIAL(Performed 02/02/2018) Performed for Rheumatoid arthritis with negative rheumatoid factor, involving unspecified site (HCC), Encounter for long-term (current) use of high-risk medication, Encounter for therapeutic drug monitoring * COMPREHENSIVE METABOLIC PANEL(Performed 02/02/2018) Performed for Rheumatoid arthritis with negative rheumatoid factor, involving unspecified site (HCC), Encounter for long-term (current) use of high-risk medication, Encounter for therapeutic drug monitoring * URINALYSIS W/MICROSCOPIC NO CULTURE(Performed 11/28/2017) * C-REACTIVE PROTEIN(Performed 11/28/2017) * ERYTHROCYTE SEDIMENTATION RATE(Performed 11/28/2017) * CBC W/O DIFFERENTIAL(Performed 11/28/2017) * COMPREHENSIVE METABOLIC PANEL(Performed 11/28/2017) * C-REACTIVE PROTEIN(Performed 09/18/2017) * URINALYSIS W/MICROSCOPIC NO CULTURE(Performed 09/18/2017) * CBC W/O DIFFERENTIAL(Performed 09/18/2017) * ERYTHROCYTE SEDIMENTATION RATE(Performed 09/18/2017) * COMPREHENSIVE METABOLIC PANEL(Performed 09/18/2017) * QUANTIFERON TB-GOLD(Performed 06/30/2017) * CBC W/O DIFFERENTIAL(Performed 06/30/2017) * COMPREHENSIVE METABOLIC PANEL(Performed 06/30/2017) * C-REACTIVE PROTEIN(Performed 06/30/2017) * ERYTHROCYTE SEDIMENTATION RATE(Performed 06/30/2017) * URINALYSIS W/MICROSCOPIC NO CULTURE(Performed 06/30/2017) * C-REACTIVE PROTEIN(Performed 05/10/2017) * URINALYSIS W/MICROSCOPIC NO CULTURE(Performed 05/10/2017) * CBC W/O DIFFERENTIAL(Performed 05/10/2017) * ERYTHROCYTE SEDIMENTATION RATE(Performed 05/10/2017) * COMPREHENSIVE METABOLIC PANEL(Performed 05/10/2017) * CBC W/O DIFFERENTIAL(Performed 03/03/2017) * ERYTHROCYTE SEDIMENTATION RATE(Performed 03/03/2017) * COMPREHENSIVE METABOLIC PANEL(Performed 03/03/2017) * C-REACTIVE PROTEIN(Performed 03/03/2017) * URINALYSIS W/MICROSCOPIC NO CULTURE(Performed 03/03/2017) * COMPREHENSIVE METABOLIC PANEL(Performed 01/02/2017) * ERYTHROCYTE SEDIMENTATION RATE(Performed 01/02/2017) * C-REACTIVE PROTEIN(Performed 01/02/2017) * CBC W/O DIFFERENTIAL(Performed 01/02/2017) * URINALYSIS W/MICROSCOPIC NO CULTURE(Performed 01/02/2017) * ERYTHROCYTE SEDIMENTATION RATE(Performed 11/17/2016) * URINALYSIS W/MICROSCOPIC NO CULTURE(Performed 11/17/2016) * COMPREHENSIVE METABOLIC PANEL(Performed 11/17/2016) * C-REACTIVE PROTEIN(Performed 11/17/2016) * CBC W/O DIFFERENTIAL(Performed 11/17/2016) * COMPREHENSIVE METABOLIC PANEL(Performed 10/28/2016) * ERYTHROCYTE SEDIMENTATION RATE(Performed 10/28/2016) * C-REACTIVE PROTEIN(Performed 10/28/2016) * URINALYSIS W/MICROSCOPIC NO CULTURE(Performed 10/28/2016) * CBC W/O DIFFERENTIAL(Performed 10/28/2016) * COMPREHENSIVE METABOLIC PANEL(Performed 09/23/2016) * C-REACTIVE PROTEIN(Performed 09/23/2016) * ERYTHROCYTE SEDIMENTATION RATE(Performed 09/23/2016) * URINALYSIS W/MICROSCOPIC NO CULTURE(Performed 09/23/2016) * CBC W/O DIFFERENTIAL(Performed 09/23/2016) * URINALYSIS W/MICROSCOPIC NO CULTURE(Performed 08/26/2016) * ERYTHROCYTE SEDIMENTATION RATE(Performed 08/26/2016) * CBC W/O DIFFERENTIAL(Performed 08/26/2016) * COMPREHENSIVE METABOLIC PANEL(Performed 08/26/2016) * C-REACTIVE PROTEIN(Performed 08/26/2016) * ERYTHROCYTE SEDIMENTATION RATE(Performed 07/13/2016) * COMPREHENSIVE METABOLIC PANEL(Performed 07/13/2016) * CBC W/O DIFFERENTIAL(Performed 07/13/2016) * URINALYSIS W/MICROSCOPIC NO CULTURE(Performed 07/13/2016) * C-REACTIVE PROTEIN(Performed 07/13/2016) * URINALYSIS W/MICROSCOPIC NO CULTURE(Performed 05/20/2016) * ERYTHROCYTE SEDIMENTATION RATE(Performed 05/20/2016) * C-REACTIVE PROTEIN(Performed 05/20/2016) * COMPREHENSIVE METABOLIC PANEL(Performed 05/20/2016) * CBC W/O DIFFERENTIAL(Performed 05/20/2016) * BETA-2 GLYCOPROTEIN 1 ANTIBODY IGM(Performed 03/25/2016) * BETA-2 GLYCOPROTEIN 1 ANTIBODY IGG(Performed 03/25/2016) * CARDIOLIPIN ANTIBODY IGM(Performed 03/25/2016) * CARDIOLIPIN ANTIBODY IGG(Performed 03/25/2016) * CARDIOLIPIN ANTIBODY IGA(Performed 03/25/2016) * CHROMATIN ANTIBODY(Performed 03/25/2016) * DNA ANTIBODY DS CRITHIDIA TITER(Performed 03/25/2016) * COMPLEMENT TOTAL(Performed 03/25/2016) * LUPUS ANTICOAGULANT PANEL(Performed 03/25/2016) * SS-A (SJOGREN'S) ANTIBODY(Performed 03/25/2016) * FILTER TANK TENDER HELPER ANTIBODY(Performed 03/25/2016) * ADAM (SM) ANTIBODY ROBERT(Performed 03/25/2016) * SCLERODERMA 70 (SCL) ANTIBODY(Performed 03/25/2016) * SELENA W/REFLEX IFA PATTERN(Performed 03/25/2016) * HLA TYPING B27(Performed 03/25/2016) * SS-B (SJOGREN'S) ANTIBODY(Performed 03/25/2016) * HEPATITIS B SURFACE ANTIGEN W RFLX CONFIRMATION(Performed 03/25/2016) * HEPATITIS C ANTIBODY(Performed 03/25/2016) * COMPLEMENT C4(Performed 03/25/2016) * COMPLEMENT C3(Performed 03/25/2016) * CYCLIC CITRULLINATED PEPTIDE(CCP) AB IGG(Performed 03/25/2016) * T4 FREE(Performed 03/25/2016) * TSH(Performed 03/25/2016) * COMPREHENSIVE METABOLIC PANEL(Performed 03/25/2016) * URIC ACID BLOOD(Performed 03/25/2016) * CK BLOOD(Performed 03/25/2016) * C-REACTIVE PROTEIN(Performed 03/25/2016) * RHEUMATOID FACTOR BLOOD QUANTITATIVE(Performed 03/25/2016) * ERYTHROCYTE SEDIMENTATION RATE(Performed 03/25/2016) * URINALYSIS W/MICROSCOPIC NO CULTURE(Performed 03/25/2016) * CBC W/O DIFFERENTIAL(Performed 03/25/2016) * XR HAND RIGHT 2VW(Performed 03/25/2016) * XR ANKLE LEFT 2VW(Performed 03/25/2016) * XR FOOT LEFT 2VW(Performed 03/25/2016) * XR HAND LEFT 2VW(Performed 03/25/2016) * XR ANKLE RIGHT 2VW(Performed 03/25/2016) * XR KNEE RIGHT 3VW(Performed 03/25/2016) * XR WRIST LEFT 2VW(Performed 03/25/2016) * XR WRIST RIGHT 2VW(Performed 03/25/2016) * XR PELVIS W BILAT HIP 2VW(Performed 03/25/2016) * XR CERVICAL SPINE 2 OR 3VW(Performed 03/25/2016) * XR FOOT RIGHT 2VW(Performed 03/25/2016) Results * QUANTIFERON-TB GOLD PLUS 1-TUBE (08/16/2024 3:24 PM FURNITURE DECALS INSPECTOR) Only the most recent of5 resultswithin the time period is included. [facility] QuantiFERON TB Gold Plus NEGATIVE NEGATIVE [...] T-lymphocytes. For additional information, please refer to https://education.[employer]/faq/UIR620 (This link is being provided for informational/ educational purposes only.) Test Performed at: [facility] [id number] [place] [address] GONSALO SPIVEY MD 08/16/2024 3:24 PM FURNITURE DECALS INSPECTOR 08/16/2024 3:24 PM FURNITURE DECALS INSPECTOR Eliza Daly MD LAB - CHEMISTR Y ORDERABLES Performing Organization Address [facility] Co de Phone Number [address] [address] * CULTURE URINE REFLEXED III (08/16/2024 3:23 PM FURNITURE DECALS INSPECTOR) Only the most recent of5 resultswithin the time period is included. Reflexive Urine Culture See Below [facility] Comment: NO CULTURE INDICATED Test Performed at: [email or web address] [address] GONSALO SPIVEY MD 08/16/2024 3:23 PM FURNITURE DECALS INSPECTOR 08/16/2024 3:23 PM FURNITURE DECALS INSPECTOR Eliza Daly MD LAB - MICROBIO LOGY ORDERABLES Performing Organization Address [facility] Co de Phone Number [address] [address] * URINALYSIS W/MICROSCOPIC REFLEX TO CULTURE (08/16/2024 3:23 PM FURNITURE DECALS INSPECTOR) Only the most recent of23 resultswithin the time period is included. Color UA YELLOW YELLOW [facility] Appearance CLEAR CLEAR [facility] Specific [place] UA 1.013 1.001 - 1.035 [facility] pH [...] elements seen were reported. Test Performed at: [email or web address] [address] GONSALO SPIVEY MD 08/16/2024 3:23 PM FURNITURE DECALS INSPECTOR 08/16/2024 3:23 PM FURNITURE DECALS INSPECTOR Eliza Daly MD LAB - URINALYS IS ORDERABLES Performing Organization Address [facility] Co de Phone Number [address] [address] * C-REACTIVE PROTEIN (08/16/2024 3:23 PM FURNITURE DECALS INSPECTOR) Only the most recent of41 resultswithin the time period is included. C-Reactive Protein 5.1 <8.0 mg/L [facility] Comment: Test Performed at: [facility] [address] [place] [address] GONSALO SPIVEY MD 08/16/2024 3:23 PM FURNITURE DECALS INSPECTOR 08/16/2024 3:23 PM FURNITURE DECALS INSPECTOR Eliza Daly MD LAB - CHEMISTR Y ORDERABLES Performing Organization Address [place]/[facility] Co de Phone Number [address] [address] * ERYTHROCYTE SEDIMENTATION RATE (08/16/2024 3:23 PM FURNITURE DECALS INSPECTOR) Only the most recent of41 resultswithin the time period is included. Erythrocyte Sedimentation Rate Westergren 11 < OR = 30 mm/h [facility] Comment: Test Performed at: [email or web address] [address] GONSALO SPIVEY MD 08/16/2024 3:23 PM FURNITURE DECALS INSPECTOR 08/16/2024 3:23 PM FURNITURE DECALS INSPECTOR Eliza Daly MD LAB - HEMATOLO GY ORDERABLES Performing Organization Address [facility] Co de Phone Number [facility] [address] [place] [address] * (ABNORMAL) CBC WITH DIFFERENTIAL (08/16/2024 3:23 PM FURNITURE DECALS INSPECTOR) Only the most recent of27 resultswithin the time period is included. White Blood Cell Count 4.8 3.8 - [...] 0.8 % [facility] Comment: Test Performed at: [email or web address] [address] GONSALO SPIVEY MD 08/16/2024 3:23 PM FURNITURE DECALS INSPECTOR 08/16/2024 3:23 PM FURNITURE DECALS INSPECTOR Eliza Daly MD LAB - HEMATOLO GY ORDERABLES Performing Organization Address [facility]/ZIP Co de Phone Number [facility] [address] [place] [address] * COMPREHENSIVE METABOLIC PANEL (08/16/2024 3:23 PM FURNITURE DECALS INSPECTOR) Only the most recent of41 resultswithin the time period is included. Pathologist [facility] Glucose 82 65 - 99 mg/dL [facility] [...] 29 U/L [facility] Comment: Test Performed at: [email or web address] [address] GONSALO SPIVEY MD 08/16/2024 3:23 PM FURNITURE DECALS INSPECTOR 08/16/2024 3:23 PM FURNITURE DECALS INSPECTOR Eliza Daly MD LAB - CHEMISTR Y ORDERABLES [address] [address] * CULTURE URINE REFLEXED II (01/02/2024 8:27 AM CDT) Only the most recent of5 resultswithin the time period is included. [facility] Reflexive Urine Culture See Below [facility] Comment: CULTURE INDICATED - RESULTS TO FOLLOW Test Performed at: [email or web address] [address] GONSALO SPIVEY MD 01/02/2024 8:27 AM CDT 01/02/2024 8:28 AM CDT Eliza Daly MD LAB - MICROBIO LOGY ORDERABLES Performing Organization Address [facility] Co de Phone Number [address] [address] * CULTURE URINE (01/02/2024 8:27 AM CDT) Only the most recent of5 resultswithin the time period is included. Pathologist [facility] Culture [facility] Comment: CULTURE, URINE, ROUTINE Micro Number: [id number] Test Status: Final Specimen Source: Urine Specimen Quality: Adequate Result: No Growth REPORT COMMENT: FASTING:YES Test Performed at: [email or web address] [address] GONSALO SPIVEY MD 01/02/2024 8:27 AM CDT 01/02/2024 8:28 AM CDT Eliza Daly MD LAB - MICROBIO LOGY ORDERABLES Performing Organization Address [facility] Co de Phone Number [address] [address] * EYE EXAM (06/20/2023) Anatomical Region Laterality Modality Other Narrative 06/20/2023 Ordered by an unspecified provider. Scanned Document SCANNING ONLY * XR HAND RIGHT 2VW (05/29/2023 9:50 AM CDT) Only the most recent of2 resultswithin the time period is included. Anatomical Region Laterality Modality Wrist / Hand Radiographic Velma ging 05/29/2023 9:56 AM CDT Impressions 05/29/2023 10:14 AM CDT IMPRESSION: 1. Right and left hands: No significant arthritis at the metacarpophalangeal or interphalangeal joints. 2. 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 > Interpreting Provider: Ranjit Betancourt MD on 05/29/2023 10:14 AM Narrative 05/29/2023 10:14 AM CDT PROCEDURE: XR HAND RIGHT 2VW, XR WRIST RIGHT 2VW, XR WRIST LEFT 2VW, XR HAND LEFT 2VW DATE/TIME OF EXAM: 05/29/2023 9:50 AM CLINICAL INFORMATION: None relevant/not provided if blank. Indication: M06.09: Rheumatoid arthritis 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 factor ([facility]) Z79.899: Encounter for long-term (current) use of high-risk medication Z51.81: Encounter for therapeutic drug level monitoring Additional History: COMPARISON: Right and left hand and wrist x-rays dated 03/25/2016. FINDINGS: Right hand: No fracture or dislocation is present. The metacarpophalangeal and interphalangeal joint spaces are normal. No erosions are seen. There is a subchondral cyst and mild adjacent sclerosis in the second proximal phalanx base. Bone density is normal. The soft tissues are normal. Left hand: No fracture or dislocation is present. The joint spaces are normal. No erosions are seen. Bone density is normal. The soft tissues are normal. Right wrist: No fracture or dislocation is present. There is chronic deformity of the trapezium and proximal subluxation of the first metacarpal at the first carpometacarpal joint. There are multiple lucencies in the first metacarpal base and trapezium compatible with subchondral cysts and chronic erosions. There is subchondral sclerosis and osteophyte formation. There is moderate joint space narrowing between the lunate and capitate. Otherwise the joint spaces are normal. No acute appearing erosions are seen. Bone density is normal. The soft tissues are normal. Left wrist: No fracture or dislocation is present. There is chronic deformity of the trapezium and proximal subluxation of the first metacarpal at the first carpometacarpal joint. There are multiple lucencies in the first metacarpal base and trapezium compatible with subchondral cysts. There is subchondral sclerosis and osteophyte formation. Otherwise the joint spaces are normal. No acute appearing erosions are seen. Bone density is normal. The soft tissues are normal. Procedure Note Ranjit Betancourt MD - 05/29/2023 PROCEDURE: XR HAND RIGHT 2VW, XR WRIST RIGHT 2VW, XR WRIST LEFT 2VW, XR HAND LEFT 2VW DATE/TIME OF EXAM: 05/29/2023 9:50 AM CLINICAL INFORMATION: None relevant/not provided if blank. Indication: M06.09: Rheumatoid arthritis 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 factor ([facility]) Z79.899: Encounter for long-term (current) use of high-risk medication Z51.81: Encounter for therapeutic drug level monitoring Additional History: COMPARISON: Right and left hand and wrist x-rays dated 03/25/2016. FINDINGS: Right hand: No fracture or dislocation is present. The metacarpophalangeal and interphalangeal joint spaces are normal. No erosions are seen. There tan subchondral cyst and mild adjacent sclerosis in the second proximalphalanx base. Bone density is normal. The soft tissues are normal. Left hand: No fracture or dislocation is present. The joint spaces are normal. No erosions are seen. Bone density is normal. The soft tissues arenormal. Right wrist: No fracture or dislocation is present. There is chronic deformity of the trapezium and proximal subluxation of the first metacarpal at the first carpometacarpal joint. There are multiple lucencies in the firstmetacarpal base and trapezium compatible with subchondral cysts and chronicerosions. There is subchondral sclerosis and osteophyte formation. There ismoderate joint space narrowing between the lunate and capitate. Otherwise thejoint spaces are normal. No acute appearing erosions are seen. Bone density is normal. The soft tissues are normal. Left wrist: No fracture or dislocation is present. There is chronic deformity of the trapezium and proximal subluxation of the first metacarpal at the first carpometacarpal joint. There are multiple lucencies in the firstmetacarpal base and trapezium compatible with subchondral cysts. There issubchondral sclerosis and osteophyte formation. Otherwise the joint spaces arenormal. No acute appearing erosions are seen. Bone density is normal. The soft tissues are normal. IMPRESSION: 1. Right and left hands: No significant arthritis at the metacarpophalangeal or interphalangeal joints. 2. 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 > Interpreting Provider: Ranjit Betancourt MD on 05/29/2023 10:14 AM Eliza Daly MD DIAGNOSTIC VELMA GING ORDERABLES * XR HAND LEFT 2VW (05/29/2023 9:50 AM CDT) Only the most recent of2 resultswithin the time period is included. Anatomical Region Laterality Modality Wrist / Hand Radiographic Velma ging 05/29/2023 9:56 AM CDT Impressions 05/29/2023 10:14 AM CDT IMPRESSION: 1. Right and left hands: No significant arthritis at the metacarpophalangeal or interphalangeal joints. 2. 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 > Interpreting Provider: Ranjit Betancourt MD on 05/29/2023 10:14 AM Narrative 05/29/2023 10:14 AM CDT PROCEDURE: XR HAND RIGHT 2VW, XR WRIST RIGHT 2VW, XR WRIST LEFT 2VW, XR HAND LEFT 2VW DATE/TIME OF EXAM: 05/29/2023 9:50 AM CLINICAL INFORMATION: None relevant/not provided if blank. Indication: M06.09: Rheumatoid arthritis 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 factor ([facility]) Z79.899: Encounter for long-term (current) use of high-risk medication Z51.81: Encounter for therapeutic drug level monitoring Additional History: COMPARISON: Right and left hand and wrist x-rays dated 03/25/2016. FINDINGS: Right hand: No fracture or dislocation is present. The metacarpophalangeal and interphalangeal joint spaces are normal. No erosions are seen. There is a subchondral cyst and mild adjacent sclerosis in the second proximal phalanx base. Bone density is normal. The soft tissues are normal. Left hand: No fracture or dislocation is present. The joint spaces are normal. No erosions are seen. Bone density is normal. The soft tissues are normal. Right wrist: No fracture or dislocation is present. There is chronic deformity of the trapezium and proximal subluxation of the first metacarpal at the first carpometacarpal joint. There are multiple lucencies in the first metacarpal base and trapezium compatible with subchondral cysts and chronic erosions. There is subchondral sclerosis and osteophyte formation. There is moderate joint space narrowing between the lunate and capitate. Otherwise the joint spaces are normal. No acute appearing erosions are seen. Bone density is normal. The soft tissues are normal. Left wrist: No fracture or dislocation is present. There is chronic deformity of the trapezium and proximal subluxation of the first metacarpal at the first carpometacarpal joint. There are multiple lucencies in the first metacarpal base and trapezium compatible with subchondral cysts. There is subchondral sclerosis and osteophyte formation. Otherwise the joint spaces are normal. No acute appearing erosions are seen. Bone density is normal. The soft tissues are normal. Procedure Note Ranjit Betancourt MD - 05/29/2023 PROCEDURE: XR HAND RIGHT 2VW, XR WRIST RIGHT 2VW, XR WRIST LEFT 2VW, XR HAND LEFT 2VW DATE/TIME OF EXAM: 05/29/2023 9:50 AM CLINICAL INFORMATION: None relevant/not provided if blank. Indication: M06.09: Rheumatoid arthritis 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 factor ([facility]) Z79.899: Encounter for long-term (current) use of high-risk medication Z51.81: Encounter for therapeutic drug level monitoring Additional History: COMPARISON: Right and left hand and wrist x-rays dated 03/25/2016. FINDINGS: Right hand: No fracture or dislocation is present. The metacarpophalangeal and interphalangeal joint spaces are normal. No erosions are seen. There tan subchondral cyst and mild adjacent sclerosis in the second proximalphalanx base. Bone density is normal. The soft tissues are normal. Left hand: No fracture or dislocation is present. The joint spaces are normal. No erosions are seen. Bone density is normal. The soft tissues arenormal. Right wrist: No fracture or dislocation is present. There is chronic deformity of the trapezium and proximal subluxation of the first metacarpal at the first carpometacarpal joint. There are multiple lucencies in the firstmetacarpal base and trapezium compatible with subchondral cysts and chronicerosions. There is subchondral sclerosis and osteophyte formation. There ismoderate joint space narrowing between the lunate and capitate. Otherwise thejoint spaces are normal. No acute appearing erosions are seen. Bone density is normal. The soft tissues are normal. Left wrist: No fracture or dislocation is present. There is chronic deformity of the trapezium and proximal subluxation of the first metacarpal at the first carpometacarpal joint. There are multiple lucencies in the firstmetacarpal base and trapezium compatible with subchondral cysts. There issubchondral sclerosis and osteophyte formation. Otherwise the joint spaces arenormal. No acute appearing erosions are seen. Bone density is normal. The soft tissues are normal. IMPRESSION: 1. Right and left hands: No significant arthritis at the metacarpophalangeal or interphalangeal joints. 2. 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 > Interpreting Provider: Ranjit Betancourt MD on 05/29/2023 10:14 AM Eliza Daly MD DIAGNOSTIC VELMA GING ORDERABLES * XR WRIST RIGHT 2VW (05/29/2023 9:50 AM CDT) Only the most recent of2 resultswithin the time period is included. Anatomical Region Laterality Modality Wrist / Hand Radiographic Velma ging 05/29/2023 9:56 AM CDT Impressions 05/29/2023 10:14 AM CDT IMPRESSION: 1. Right and left hands: No significant arthritis at the metacarpophalangeal or interphalangeal joints. 2. 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 > Interpreting Provider: Ranjit Betancourt MD on 05/29/2023 10:14 AM Narrative 05/29/2023 10:14 AM CDT PROCEDURE: XR HAND RIGHT 2VW, XR WRIST RIGHT 2VW, XR WRIST LEFT 2VW, XR HAND LEFT 2VW DATE/TIME OF EXAM: 05/29/2023 9:50 AM CLINICAL INFORMATION: None relevant/not provided if blank. Indication: M06.09: Rheumatoid arthritis 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 factor (CMS/HCC) Z79.899: Encounter for long-term (current) use of high-risk medication Z51.81: Encounter for therapeutic drug level monitoring Additional History: COMPARISON: Right and left hand and wrist x-rays dated 03/25/2016. FINDINGS: Right hand: No fracture or dislocation is present. The metacarpophalangeal and interphalangeal joint spaces are normal. No erosions are seen. There is a subchondral cyst and mild adjacent sclerosis in the second proximal phalanx base. Bone density is normal. The soft tissues are normal. Left hand: No fracture or dislocation is present. The joint spaces are normal. No erosions are seen. Bone density is normal. The soft tissues are normal. Right wrist: No fracture or dislocation is present. There is chronic deformity of the trapezium and proximal subluxation of the first metacarpal at the first carpometacarpal joint. There are multiple lucencies in the first metacarpal base and trapezium compatible with subchondral cysts and chronic erosions. There is subchondral sclerosis and osteophyte formation. There is moderate joint space narrowing between the lunate and capitate. Otherwise the joint spaces are normal. No acute appearing erosions are seen. Bone density is normal. The soft tissues are normal. Left wrist: No fracture or dislocation is present. There is chronic deformity of the trapezium and proximal subluxation of the first metacarpal at the first carpometacarpal joint. There are multiple lucencies in the first metacarpal base and trapezium compatible with subchondral cysts. There is subchondral sclerosis and osteophyte formation. Otherwise the joint spaces are normal. No acute appearing erosions are seen. Bone density is normal. The soft tissues are normal. Procedure Note Ranjit Betancourt MD - 05/29/2023 PROCEDURE: XR HAND RIGHT 2VW, XR WRIST RIGHT 2VW, XR WRIST LEFT 2VW, XR HAND LEFT 2VW DATE/TIME OF EXAM: 05/29/2023 9:50 AM CLINICAL INFORMATION: None relevant/not provided if blank. Indication: M06.09: Rheumatoid arthritis 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 factor (CMS/HCC) Z79.899: Encounter for long-term (current) use of high-risk medication Z51.81: Encounter for therapeutic drug level monitoring Additional History: COMPARISON: Right and left hand and wrist x-rays dated 03/25/2016. FINDINGS: Right hand: No fracture or dislocation is present. The metacarpophalangeal and interphalangeal joint spaces are normal. No erosions are seen. There tan subchondral cyst and mild adjacent sclerosis in the second proximalphalanx base. Bone density is normal. The soft tissues are normal. Left hand: No fracture or dislocation is present. The joint spaces are normal. No erosions are seen. Bone density is normal. The soft tissues arenormal. Right wrist: No fracture or dislocation is present. There is chronic deformity of the trapezium and proximal subluxation of the first metacarpal at the first carpometacarpal joint. There are multiple lucencies in the firstmetacarpal base and trapezium compatible with subchondral cysts and chronicerosions. There is subchondral sclerosis and osteophyte formation. There ismoderate joint space narrowing between the lunate and capitate. Otherwise thejoint spaces are normal. No acute appearing erosions are seen. Bone density is normal. The soft tissues are normal. Left wrist: No fracture or dislocation is present. There is chronic deformity of the trapezium and proximal subluxation of the first metacarpal at the first carpometacarpal joint. There are multiple lucencies in the firstmetacarpal base and trapezium compatible with subchondral cysts. There issubchondral sclerosis and osteophyte formation. Otherwise the joint spaces arenormal. No acute appearing erosions are seen. Bone density is normal. The soft tissues are normal. IMPRESSION: 1. Right and left hands: No significant arthritis at the metacarpophalangeal or interphalangeal joints. 2. 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 > Interpreting Provider: Ranjit Betancourt MD on 05/29/2023 10:14 AM Eliza Daly MD DIAGNOSTIC VELMA GING ORDERABLES * XR WRIST LEFT 2VW (05/29/2023 9:50 AM CDT) Only the most recent of2 resultswithin the time period is included. Anatomical Region Laterality Modality Wrist / Hand Radiographic Velma ging 05/29/2023 9:56 AM CDT Impressions 05/29/2023 10:14 AM CDT IMPRESSION: 1. Right and left hands: No significant arthritis at the metacarpophalangeal or interphalangeal joints. 2. 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 > Interpreting Provider: Ranjit Betancourt MD on 05/29/2023 10:14 AM Narrative 05/29/2023 10:14 AM CDT PROCEDURE: XR HAND RIGHT 2VW, XR WRIST RIGHT 2VW, XR WRIST LEFT 2VW, XR HAND LEFT 2VW DATE/TIME OF EXAM: 05/29/2023 9:50 AM CLINICAL INFORMATION: None relevant/not provided if blank. Indication: M06.09: Rheumatoid arthritis 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 factor ([facility]) Z79.899: Encounter for long-term (current) use of high-risk medication Z51.81: Encounter for therapeutic drug level monitoring Additional History: COMPARISON: Right and left hand and wrist x-rays dated 03/25/2016. FINDINGS: Right hand: No fracture or dislocation is present. The metacarpophalangeal and interphalangeal joint spaces are normal. No erosions are seen. There is a subchondral cyst and mild adjacent sclerosis in the second proximal phalanx base. Bone density is normal. The soft tissues are normal. Left hand: No fracture or dislocation is present. The joint spaces are normal. No erosions are seen. Bone density is normal. The soft tissues are normal. Right wrist: No fracture or dislocation is present. There is chronic deformity of the trapezium and proximal subluxation of the first metacarpal at the first carpometacarpal joint. There are multiple lucencies in the first metacarpal base and trapezium compatible with subchondral cysts and chronic erosions. There is subchondral sclerosis and osteophyte formation. There is moderate joint space narrowing between the lunate and capitate. Otherwise the joint spaces are normal. No acute appearing erosions are seen. Bone density is normal. The soft tissues are normal. Left wrist: No fracture or dislocation is present. There is chronic deformity of the trapezium and proximal subluxation of the first metacarpal at the first carpometacarpal joint. There are multiple lucencies in the first metacarpal base and trapezium compatible with subchondral cysts. There is subchondral sclerosis and osteophyte formation. Otherwise the joint spaces are normal. No acute appearing erosions are seen. Bone density is normal. The soft tissues are normal. Procedure Note Ranjit Betancourt MD - 05/29/2023 PROCEDURE: XR HAND RIGHT 2VW, XR WRIST RIGHT 2VW, XR WRIST LEFT 2VW, XR HAND LEFT 2VW DATE/TIME OF EXAM: 05/29/2023 9:50 AM CLINICAL INFORMATION: None relevant/not provided if blank. Indication: M06.09: Rheumatoid arthritis 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 factor (CMS/HCC) Z79.899: Encounter for long-term (current) use of high-risk medication Z51.81: Encounter for therapeutic drug level monitoring Additional History: COMPARISON: Right and left hand and wrist x-rays dated 03/25/2016. FINDINGS: Right hand: No fracture or dislocation is present. The metacarpophalangeal and interphalangeal joint spaces are normal. No erosions are seen. There tan subchondral cyst and mild adjacent sclerosis in the second proximalphalanx base. Bone density is normal. The soft tissues are normal. Left hand: No fracture or dislocation is present. The joint spaces are normal. No erosions are seen. Bone density is normal. The soft tissues arenormal. Right wrist: No fracture or dislocation is present. There is chronic deformity of the trapezium and proximal subluxation of the first metacarpal at the first carpometacarpal joint. There are multiple lucencies in the firstmetacarpal base and trapezium compatible with subchondral cysts and chronicerosions. There is subchondral sclerosis and osteophyte formation. There ismoderate joint space narrowing between the lunate and capitate. Otherwise thejoint spaces are normal. No acute appearing erosions are seen. Bone density is normal. The soft tissues are normal. Left wrist: No fracture or dislocation is present. There is chronic deformity of the trapezium and proximal subluxation of the first metacarpal at the first carpometacarpal joint. There are multiple lucencies in the firstmetacarpal base and trapezium compatible with subchondral cysts. There issubchondral sclerosis and osteophyte formation. Otherwise the joint spaces arenormal. No acute appearing erosions are seen. Bone density is normal. The soft tissues are normal. IMPRESSION: 1. Right and left hands: No significant arthritis at the metacarpophalangeal or interphalangeal joints. 2. 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 > Interpreting Provider: Ranjit Betancourt MD on 05/29/2023 10:14 AM Eliza Daly MD DIAGNOSTIC VELMA GING ORDERABLES * XR CHEST 2VW (05/29/2023 9:50 AM CDT) Anatomical Region Laterality Modality Chest Radiographic Velma ging 05/29/2023 9:54 AM CDT Impressions 05/29/2023 4:55 PM CDT IMPRESSION: No cardiopulmonary abnormality. Report dictated by Ana Luisa Myers DO (radiology physician assistant). I, Merari Cisneros MD have personally reviewed and interpreted this examination/study. > Interpreting Provider: Merari Cisneros MD on 05/29/2023 4:55 PM Narrative 05/29/2023 4:55 PM CDT PROCEDURE: XR CHEST 2VW, DATE/TIME OF EXAM: 05/29/2023 9:50 AM, LOCATION [facility] INDICATION: M06.09: Rheumatoid arthritis 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 factor (CMS/[facility]) Z79.899: Encounter for long-term (current) use of high-risk medication Z51.81: Encounter for therapeutic drug level monitoring COMPARISON: None. FINDINGS: Surgical clips in the right upper quadrant. No focal consolidation. No pleural effusion or pneumothorax. The cardiomediastinal silhouette is normal. Scoliosis is present. Procedure Note Merari Cisneros MD - 05/29/2023 PROCEDURE: XR CHEST 2VW, DATE/TIME OF EXAM: 05/29/2023 9:50 AM, LOCATION [facility] INDICATION: M06.09: Rheumatoid arthritis 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 factor ([facility]) Z79.899: Encounter for long-term (current) use of high-risk medication Z51.81: Encounter for therapeutic drug level monitoring COMPARISON: None. FINDINGS: Surgical clips in the right upper quadrant. No focal consolidation. No pleural effusion or pneumothorax. The cardiomediastinal silhouette is normal. Scoliosis is present. IMPRESSION: No cardiopulmonary abnormality. Report dictated by Ana Luisa Myers DO (radiology physician assistant). I, Merari Cisneros MD have personally reviewed and interpreted this examination/study. > Interpreting Provider: Merari Cisneros MD on 05/29/2023 4:55 PM Eliaz Daly MD DIAGNOSTIC VELMA GING ORDERABLES * BETA-2 GLYCOPROTEIN 1 ANTIBODY IGG (02/14/2023 2:24 PM CDT) Only the most recent of2 resultswithin the time period is included. Beta-2 Glycoprotein I Antibody IgG <2.0 U/mL [facility] Comment: Value Interpretation ----- < 20.0 Antibody not detected > or = 20.0 Antibody detected The antiphospholipid antibody syndrome (APS) is a clinical-pathologic correlation that includes a clinical event (e.g. arterial or venous thrombosis, morbidity) and persistent positive antiphospholipid antibodies (IgM, IgG Cardiolipin or b2GPI antibodies greater than the 99th percentile; or a lupus anticoagulant). International consensus guidelines for APS suggest waiting at least 12 weeks before retesting to confirm antibody persistence. The [facility] immunological classification criteria for systemic lupus erythematosus (SLE) include testing for isotype IgA, which has yet to be incorporated into APS criteria. Low level antiphospholipid antibodies may sometimes be detected in the setting of infection, drug therapy or aging. For additional information, please refer to http://education.[employer]/faq/ECF787 (This link is being provided for informational/ educational purposes only.) REPORT COMMENT: FASTING:NO Test Performed at: [facility] [address] [place] [id number] GALA V GLADIS 02/14/2023 2:24 PM CDT 02/14/2023 2:25 PM CDT Eliza Daly MD LAB - SEROLOGY ORDERABLES Performing Organization Address [facility] Co de Phone Number [facility] [address] [place] [phone] * BETA-2 GLYCOPROTEIN 1 ANTIBODY IGM (02/14/2023 2:24 PM CDT) Only the most recent of2 resultswithin the time period is included. Pathologist [facility] Beta-2 Glycoprotein I Antibody IgM <2.0 U/mL [employer] Comment: Value Interpretation ----- < 20.0 Antibody not detected > or = 20.0 Antibody detected The antiphospholipid antibody syndrome (APS) is a clinical-pathologic correlation that includes a clinical event (e.g. arterial or venous thrombosis, morbidity) and persistent positive antiphospholipid antibodies (IgM, IgG Cardiolipin or b2GPI antibodies greater than the 99th percentile; or a lupus anticoagulant). International consensus guidelines for APS suggest waiting at least 12 weeks before retesting to confirm antibody persistence. The [facility] immunological classification criteria for systemic lupus erythematosus (SLE) include testing for isotype IgA, which has yet to be incorporated into APS criteria. Low level antiphospholipid antibodies may sometimes be detected in the setting of infection, drug therapy or aging. For additional information, please refer to http://education.[employer]/faq/GUE071 (This link is being provided for informational/ educational purposes only.) Test Performed at: [facility] [address] [id number] GALA GRIFFITH 02/14/2023 2:24 PM CDT 02/14/2023 2:25 PM CDT Eliza Daly MD LAB - SEROLOGY ORDERABLES Performing Organization Address [facility] Co de Phone Number [facility] [phone] [place] [address] * HEXAGONAL PHASE CONFIRM REFLEXED (02/14/2023 2:24 PM CDT) Pathologist [facility] Hexagonal Phase Confirmation NEGATIVE NEGATIVE [facility] Comment: Test Performed at: [facility] [address] [place] [address] GALA GRIFFITH 02/14/2023 2:24 PM CDT 02/14/2023 2:25 PM CDT Eliza Daly MD LAB - CHEMISTR Y ORDERABLES [facility] [address] [place] [address] * CARDIOLIPIN ANTIBODY IGA (02/14/2023 2:24 PM CDT) Only the most recent of2 resultswithin the time period is included. [facility] Cardiolipin Antibody IgA <2.0 APL-U/mL [facility] Comment: Value Interpretation ----- < 20.0 Antibody not detected > or = 20.0 Antibody detected The antiphospholipid antibody syndrome (APS) is a clinical-pathologic correlation that includes a clinical event (e.g. arterial or venous thrombosis, morbidity) and persistent positive antiphospholipid antibodies (IgM, IgG Cardiolipin or b2GPI antibodies greater than the 99th percentile; or a lupus anticoagulant). International consensus guidelines for APS suggest waiting at least 12 weeks before retesting to confirm antibody persistence. The [facility] immunological classification criteria for systemic lupus erythematosus (SLE) include testing for isotype IgA, which has yet to be incorporated into APS criteria. Low level antiphospholipid antibodies may sometimes be detected in the setting of infection, drug therapy or aging. For additional information, please refer to http://education.[employer]/faq/ZOR853 (This link is being provided for informational/ educational purposes only.) Test Performed at: [facility] [address] [place] [address] GALA GRIFFITH 02/14/2023 2:24 PM CDT 02/14/2023 2:25 PM CDT Eliza Daly MD LAB - SEROLOGY ORDERABLES Performing Organization Address [facility] Co de Phone Number [facility] [phone] [place] [address] * CARDIOLIPIN ANTIBODY IGM (02/14/2023 2:24 PM CDT) Only the most recent of2 resultswithin the time period is included. Cardiolipin Antibody IgM <2.0 MPL-U/mL [facility] Comment: Value Interpretation ----- < 20.0 Antibody not detected > or = 20.0 Antibody detected The antiphospholipid antibody syndrome (APS) is a clinical-pathologic correlation that includes a clinical event (e.g. arterial or venous thrombosis, morbidity) and persistent positive antiphospholipid antibodies (IgM, IgG Cardiolipin or b2GPI antibodies greater than the 99th percentile; or a lupus anticoagulant). International consensus guidelines for APS suggest waiting at least 12 weeks before retesting to confirm antibody persistence. The [facility] immunological classification criteria for systemic lupus erythematosus (SLE) include testing for isotype IgA, which has yet to be incorporated into APS criteria. Low level antiphospholipid antibodies may sometimes be detected in the setting of infection, drug therapy or aging. For additional information, please refer to http://education.[employer]/faq/AAA440 (This link is being provided for informational/ educational purposes only.) Test Performed at: [facility] [address] [address] GALA GRIFFITH 02/14/2023 2:24 PM CDT 02/14/2023 2:25 PM CDT Eliza Daly MD LAB - SEROLOGY ORDERABLES Performing Organization Address [facility] Co de Phone Number [facility] [phone] [place] [address] * CARDIOLIPIN ANTIBODY IGG (02/14/2023 2:24 PM CDT) Only the most recent of2 resultswithin the time period is included. Cardiolipin Antibody IgG <2.0 GPL-U/mL [facility] Comment: Value Interpretation ----- < 20.0 Antibody not detected > or = 20.0 Antibody detected The antiphospholipid antibody syndrome (APS) is a clinical-pathologic correlation that includes a clinical event (e.g. arterial or venous thrombosis, morbidity) and persistent positive antiphospholipid antibodies (IgM, IgG Cardiolipin or b2GPI antibodies greater than the 99th percentile; or a lupus anticoagulant). International consensus guidelines for APS suggest waiting at least 12 weeks before retesting to confirm antibody persistence. The [facility] immunological classification criteria for systemic lupus erythematosus (SLE) include testing for isotype IgA, which has yet to be incorporated into APS criteria. Low level antiphospholipid antibodies may sometimes be detected in the setting of infection, drug therapy or aging. For additional information, please refer to http://[employer]/faq/AFB835 (This link is being provided for informational/ educational purposes only.) Test Performed at: [facility] [address] [address] GALA GRIFFITH 02/14/2023 2:24 PM CDT 02/14/2023 2:25 PM CDT Eliza Daly MD LAB - SEROLOGY ORDERABLES Performing Organization Address City/State/[facility] Co de Phone Number [employer] [phone] [place] [address] * (ABNORMAL) LUPUS ANTICOAGULANT PANEL W RFLX (02/14/2023 2:24 PM CDT) [facility] Lupus Anticoagulant NOT DETECTED [facility] Comment: A Lupus Anticoagulant is not detected. Common causes for a prolonged screen and negative confirmatory test include factor deficiencies or anticoagulant therapy. For more information on this test, go to: http://education.[employer]/faq/TQR33a3 (This link is being provided for informational/ educational purposes only.) This interpretation is based on the following test results: PTT LA Screen 45(H) < OR = 40 sec [facility] dRVVT Screen 34 < OR = 45 sec [facility] Comment: Test Performed at: [facility] [address] [place] [address] GALA GRIFFITH 02/14/2023 2:24 PM CDT 02/14/2023 2:25 PM CDT Eliza Daly MD LAB - HEMATOLO GY ORDERABLES Performing Organization Address [facility] Co de Phone Number [employer] [phone] [place] [address] * BETA-2 GLYCOPROTEIN 1 ANTIBODY IGA (02/14/2023 2:24 PM CDT) [facility] Beta-2 Glycoprotein I Antibody IgA <2.0 U/mL [facility] Comment: Value Interpretation ----- < 20.0 Antibody not detected > or = 20.0 Antibody detected The antiphospholipid antibody syndrome (APS) is a clinical-pathologic correlation that includes a clinical event (e.g. arterial or venous thrombosis, morbidity) and persistent positive antiphospholipid antibodies (IgM, IgG Cardiolipin or b2GPI antibodies greater than the 99th percentile; or a lupus anticoagulant). International consensus guidelines for APS suggest waiting at least 12 weeks before retesting to confirm antibody persistence. The [facility]ic Lupus International [facility] immunological classification criteria for systemic lupus erythematosus (SLE) include testing for isotype IgA, which has yet to be incorporated into APS criteria. Low level antiphospholipid antibodies may sometimes be detected in the setting of infection, drug therapy or aging. For additional information, please refer to http://education.[employer]/faq/EPI903 (This link is being provided for informational/ educational purposes only.) Test Performed at: [facility] [address] [place] [address] GALA GRIFFITH 02/14/2023 2:24 PM CDT 02/14/2023 2:25 PM CDT Eliza Daly MD LAB - SEROLOGY ORDERABLES Performing Organization Address [facility]/ZIP [place] [address] * RHEUMATOID FACTOR BLOOD QUANTITATIVE (08/31/2022 10:32 AM FURNITURE DECALS INSPECTOR) Only the most recent of2 resultswithin the time period is included. Pathologist [facility] Rheumatoid Factor <14 <14 IU/mL [facility] Comment: Test Performed at: [employer] [place] [address] HUMBERTO MOYER DO,MPH Blood BLOOD SPECIMEN / Unknown 08/31/2022 10:32 AM FURNITURE DECALS INSPECTOR 08/31/2022 10:34 AM FURNITURE DECALS INSPECTOR Eliza Daly MD LAB - CHEMISTR Y ORDERABLES Performing Organization Address [facility] [place] [address] * CYCLIC CITRULLINATED PEPTIDE(CCP) AB IGG (08/31/2022 10:32 AM FURNITURE DECALS INSPECTOR) Only the most recent of2 resultswithin the time period is included. Pathologist [facility] Cyclic Citrullinated Peptide Antibody IgG <16 UNITS [facility] Comment: Reference Range Negative: <20 Weak Positive: 20-39 Moderate Positive: 40-59 Strong Positive: >59 Test Performed at: [employer] [facility] [place] [address] HUMBERTO MOYER DO,MPH Blood BLOOD SPECIMEN / Unknown 08/31/2022 10:32 AM FURNITURE DECALS INSPECTOR 08/31/2022 10:34 AM FURNITURE DECALS INSPECTOR Eliza Daly MD LAB - CHEMISTR Y ORDERABLES Performing Organization Address [facility] de [place] [address] * IMAGING RADIOLOGY XRAY RESULTS ORDER (04/11/2022) Only the most recent of4 resultswithin the time period is included. Anatomical Region Laterality Modality Other 04/11/2022 Narrative 04/11/2022 Ordered by an unspecified provider. Scanned Document IMAGING * CULTURE URINE REFLEXED I (06/25/2021 12:36 PM CDT) Only the most recent of13 resultswithin the time period is included. Reflexive Urine Culture See Below [facility] Comment: NO CULTURE INDICATED REPORT COMMENT: SPLIT 06/24/2021 FROM [id number] Test Performed at: [employer] [id number] [facility] [place] [address] HUMBERTO MOYER DO,MPH 06/25/2021 12:3 6 PM CDT 06/25/2021 12:37 PM CDT Eliza Daly MD LAB - MICROBIO LOGY ORDERABLES Performing Organization Address [facility] Co de Phone Number [employer] [phone] [place] [address] * (ABNORMAL) URINALYSIS W/MICROSCOPIC NO CULTURE (02/02/2018 10:47 AM CDT) Only the most recent of14 resultswithin the time period is included. Color UA YELLOW YELLOW [facility] Appearance CLEAR CLEAR [facility] Specific [place] UA 1.018 1.001 - 1.035 [facility] pH UA 5.5 5.0 - 8.0 [facility] Glucose UA NEGATIVE NEGATIVE [facility] Bilirubin UA NEGATIVE NEGATIVE [facility] Ketone UA NEGATIVE NEGATIVE [facility] Blood UA 1+(A) NEGATIVE [facility] Protein UA NEGATIVE NEGATIVE [facility] Nitrite UA NEGATIVE NEGATIVE [facility] Leukocyte UA NEGATIVE NEGATIVE [facility] WBC UA NONE SEEN < OR = 5 /HPF [facility] RBC UA 3-10(A) < OR = 2 /HPF [facility] Epithelial Cell UA 10-20(A) < OR = 5 /HPF [facility] Bacteria UA FEW(A) NONE SEEN /HPF [facility] Hyaline Casts NONE SEEN NONE SEEN /LPF [facility] Comment: Test Performed at: [employer] [address] [facility] [place] [address] HUMBERTO MOYER DO,MPH 02/02/2018 10:4 7 AM CDT 02/02/2018 10:48 AM CDT Eliza Daly MD LAB - URINALYS IS ORDERABLES Performing Organization Address [facility] Co de Phone Number [employer] [phone] [place] [address] * (ABNORMAL) CBC W/O DIFFERENTIAL (02/02/2018 10:47 AM CDT) Only the most recent of14 resultswithin the time period is included. Pathologist [facility] White Blood Cell Count 3.6(L) 3.8 - 10.8 Thousand/ uL [facility] RBC 3.33(L) 3.80 - 5.10 Million/u L [facility] Hemoglobin 10.3(L) 11.7 - 15.5 g/dL [facility] Hematocrit 32.2(L) 35.0 - 45.0 % [facility] MCV 96.7 80.0 - 100.0 fL [facility] MCH 30.9 27.0 - 33.0 pg [facility] MCHC 32.0 32.0 - 36.0 g/dL [facility] RDW 12.0 11.0 - 15.0 % [facility] Platelet Count 187 140 - 400 Thousand/ uL [facility] MPV 10.6 7.5 - 12.5 fL [facility] Comment: Test Performed at: [facility] [address] GONSALO SPIVEY MD Blood BLOOD SPECIMEN / Unknown 02/02/2018 10:47 AM CDT 02/02/2018 10:48 AM CDT Eliza Daly MD LAB - HEMATOLO GY ORDERABLES [address] [address] * QUANTIFERON TB-GOLD (06/30/2017 10:42 AM CDT) [facility] QuantiFERON TB Gold NEGATIVE NEGATIVE [facility] ([facility]) Comment: Negative test result. M. tuberculosis complex infection unlikely. QuantiFERON Nil Value 0.00 IU/mL [facility] ([facility]) QuantiFERON Mitogen Value >10.00 IU/mL [facility] ([facility]) QuantiFERON TB Antigen minus Nil value 0.00 IU/mL [facility] ([facility]) Comment: The Nil tube value is used to determine if the patient has a preexisting immune response which could cause a false-positive reading on the test. In order for a test to be valid, the Nil tube must have a value of less than or equal to 8.0 IU/mL. The mitogen control tube is used to assure the patient has a healthy immune status and also serves as a control for correct blood handling and incubation. It is used to detect false-negative readings. The mitogen tube must have a gamma interferon value of greater than or equal to 0.5 IU/mL higher than the value of the Nil tube. The TB antigen tube is coated with the M. tuberculosis specific antigens. For a test to be considered positive, the TB antigen tube value minus the Nil tube value must be greater than or equal to 0.35 IU/mL. For additional information, please refer to http://education.[employer]/faq/QFT (This link is being provided for informational/ educational purposes only.) Test Performed at: [employer] [address] [place] [address] HUMBERTO MOYER DO,MPH 06/30/2017 10:4 2 AM CDT 06/30/2017 10:49 AM CDT Eliza Daly MD LAB - CHEMISTR Y ORDERABLES [facility] ([facility]) * SELENA W/REFLEX IFA PATTERN (03/25/2016 4:37 PM CDT) SELENA None Detected None Detected [facility] Blood specimen (specimen) BLOOD SPECIMEN / Unknown 03/25/2016 4:37 PM CDT 03/25/2016 5:49 PM CDT Eliza Daly MD LAB - SEROLOGY ORDERABLES Performing Organization Address City/[facility]/ZIP Co de Phone Number [address] [phone] * CHROMATIN ANTIBODY (03/25/2016 4:37 PM CDT) Anti-Chromatin Antibody 0.3 0.0 - 0.9 AI [facility]) Blood specimen (specimen) BLOOD SPECIMEN / Unknown 03/25/2016 4:37 PM CDT 03/25/2016 6:03 PM CDT Narrative [facility] ([facility]) - 03/28/2016 3:13 PM CDT Performed at: [address] [facility] [address] [id number] Textile Scrap Salvager: Dave Nichols PhD, Phone: [phone] Eliza Daly MD LAB - SEROLOGY ORDERABLES Performing Organization Address City/[facility]/ZIP Co de Phone Number [facility] ([facility]) * DNA ANTIBODY DS CRITHIDIA TITER (03/25/2016 4:37 PM CDT) dsDNA Antibody IgG IFA <1:10 <1:10 [facility] ([facility] Comment: INTERPRETIVE INFORMATION: Double-Stranded DNA (dsDNA) Antibody, IgG by IFA (using Crithidia luciliae) Positivity for anti-double stranded DNA (anti-dsDNA) IgG antibody is a diagnostic criterion of systemic lupus erythematosus (SLE). The presence of the anti-dsDNA IgG antibody is identified by IFA titer (Crithidia luciliae indirect fluorescent test [JOHN]). JOHN is highly specific for SLE with a sensitivity of 50-60 percent. Some patients with early or inactive SLE may be positive for anti-dsDNA IgG by DENZEL but negative by JOHN. If the JOHN result is negative but the patient has a positive DENZEL and clinical suspicion remains, consider antinuclear antibody (SELENA) testing by IFA. Additional information and recommendations for testing may be found at http://[email or web address]/AutoimmuneDz/[email or web address]/i ndex.html. Blood specimen (specimen) BLOOD SPECIMEN / Unknown 03/25/2016 4:37 PM CDT 03/25/2016 6:03 PM CDT Eliza Daly MD LAB - SEROLOGY ORDERABLES [facility] ([facility]) * (ABNORMAL) LUPUS ANTICOAGULANT PANEL (03/25/2016 4:37 PM CDT) APTT 35.2 23.0 - 38.4 Seconds [facility] PT 14.4 12.1 - 14.8 Seconds [facility] INR 1.2 See Comment [facility] [place] Buffer 68.6 Seconds [facility] [place] Phospholipid 53.4 Seconds [facility] [place] Delta 15.2(H) <8.0 Seconds [facility] Interpretation [place] Positive (A) Negative [facility] Comment: Lupus Anticoagulants (LA), which are generally not associated with abnormal bleeding, may occur in combination with, as well as mask, a Factor VIII Inhibitor. This may increase the risk of abnormal bleeding. In such cases the Factor VIII is usually markedly decreased and does not normalize with test plasma dilution. LA are frequently associated with mild prolongation of PT. With moderate to marked PT prolongation (INR >1.5), a Factor II deficiency should be ruled out since this may predispose to abnormal bleeding. LA/Increased Anticardiolipin Antibodies are often transient and periodic retesting at 6-12 month intervals is recommended. Blood specimen (specimen) BLOOD SPECIMEN / Unknown 03/25/2016 4:37 PM CDT 03/25/2016 5:05 PM CDT Eliza Daly MD LAB - HEMATOLO GY ORDERABLES [address] [phone] * URIC ACID BLOOD (03/25/2016 4:37 PM CDT) Uric Acid 3.7 2.6 - 7.2 mg/dL [facility] Blood specimen (specimen) BLOOD SPECIMEN / Unknown 03/25/2016 4:37 PM CDT 03/25/2016 5:49 PM CDT Eliza Daly MD LAB - CHEMISTR Y ORDERABLES [address] [phone] * ADAM (SM) ANTIBODY ROBERT (03/25/2016 4:37 PM CDT) Adam Antibody 3.7 0.0 - 19.9 Units [facility] Comment: ROBERT Antibody Numeric Result Interpretation: <20.0 Units: Negative 20.0 - 39.0 Units: Weakly Positive >39.0 Units: Positive Blood specimen (specimen) BLOOD SPECIMEN / Unknown 03/25/2016 4:37 PM CDT 03/25/2016 5:49 PM CDT Eliza Daly MD LAB - CHEMISTR Y ORDERABLES Performing Organization Address [facility] Co de Phone Number [address] [phone] * FILTER TANK TENDER HELPER ANTIBODY (03/25/2016 4:37 PM CDT) SM/FILTER TANK TENDER HELPER Antibody 4.3 0.0 - 19.9 Units [facility] Comment: ROBERT Antibody Numeric Result Interpretation: <20.0 Units: Negative 20.0 - 39.0 Units: Weakly Positive >39.0 Units: Positive Blood specimen (specimen) BLOOD SPECIMEN / Unknown 03/25/2016 4:37 PM CDT 03/25/2016 5:49 PM CDT Eliza Daly MD LAB - CHEMISTR Y ORDERABLES Performing Organization Address [facility] de Phone Number [address] [phone] * HLA TYPING B27 (03/25/2016 4:37 PM CDT) Pathologist [facility] HLA-B27 Negative Negative [facility]) Comment: INTERPRETIVE INFORMATION: HLA-B27 HLA-B27 is a serologically defined allele of the human HLA-B locus. The presence of the HLA-B27 antigen is strongly associated with ankylosing spondylitis and related disorders. Test developed and characteristics determined by [employer]. See Compliance Statement B: [email or web address] Blood specimen (specimen) BLOOD SPECIMEN / Unknown 03/25/2016 4:37 PM CDT 03/25/2016 6:03 PM CDT Eliza Daly MD LAB - CHEMISTR Y ORDERABLES Performing Organization Address [facility] Co de Phone Number [facility] ([facility]) * (ABNORMAL) COMPLEMENT TOTAL (03/25/2016 4:37 PM CDT) Complement Total CH50 >60(H) 42 - 60 U/mL [facility] ([facility] Blood specimen (specimen) BLOOD SPECIMEN / Unknown 03/25/2016 4:37 PM CDT 03/25/2016 6:03 PM CDT Narrative [facility] ([facility]) - 03/28/2016 1:09 PM CDT Performed at: [address] [place] [id number] Text[employer] Sc[employer] Salvager: Dave Nichols PhD, Phone: [phone] Eliza Daly MD LAB - CHEMISTR Y ORDERABLES Performing Organization Address City/[facility]/ZIP Co de Phone Number [facility]) * SS-B (SJOGRENS'S) ANTIBODY (03/25/2016 4:37 PM CDT) Pathologist [facility] SS-B LA Antibody 2.4 0.0 - 19.9 Units [facility] Comment: ROBERT Antibody Numeric Result Interpretation: <20.0 Units: Negative 20.0 - 39.0 Units: Weakly Positive >39.0 Units: Positive Blood specimen (specimen) BLOOD SPECIMEN / Unknown 03/25/2016 4:37 PM CDT 03/25/2016 5:49 PM CDT Eliza Daly MD LAB - CHEMISTR Y ORDERABLES [address] [phone] * SS-A (SJOGREN'S) ANTIBODY (03/25/2016 4:37 PM CDT) Pathologist [facility] SS-A (Ro) Antibody 2.9 0.0 - 19.9 Units [facility] Comment: ROBERT Antibody Numeric Result Interpretation: <20.0 Units: Negative 20.0 - 39.0 Units: Weakly Positive >39.0 Units: Positive Blood specimen (specimen) BLOOD SPECIMEN / Unknown 03/25/2016 4:37 PM CDT 03/25/2016 5:49 PM CDT Eliza Daly MD LAB - CHEMISTR Y ORDERABLES Performing Organization Address [facility] Co de Phone Number [address] [phone] * SCLERODERMA 70 (SCL) ANTIBODY (03/25/2016 4:37 PM CDT) SCL-70 Antibody 2.0 0.0 - 19.9 Units [facility] Comment: ROBERT Antibody Numeric Result Interpretation: <20.0 Units: Negative 20.0 - 39.0 Units: Weakly Positive >39.0 Units: Positive Blood specimen (specimen) BLOOD SPECIMEN / Unknown 03/25/2016 4:37 PM CDT 03/25/2016 5:49 PM CDT Eliza Daly MD LAB - CHEMISTR Y ORDERABLES Performing Organization Address [facility] Co de Phone Number [address] [phone] * COMPLEMENT C4 (03/25/2016 4:37 PM CDT) Complement C4 35 15 - 57 mg/dL [facility] Blood specimen (specimen) BLOOD SPECIMEN / Unknown 03/25/2016 4:37 PM CDT 03/25/2016 5:49 PM CDT Eliza Daly MD LAB - SEROLOGY ORDERABLES Performing Organization Address [facility] Co de Phone Number [address] [phone] * HEPATITIS B SURFACE ANTIGEN W RFLX CONFIRMATION (03/25/2016 4:37 PM CDT) Hepatitis B Virus Surface Antigen Non-reacti ve Non-reacti ve [facility] Blood specimen (specimen) BLOOD SPECIMEN / Unknown 03/25/2016 4:37 PM CDT 03/25/2016 5:49 PM CDT Eliza Daly MD LAB - CHEMISTR Y ORDERABLES Performing Organization Address [facility]/ZIP Co de Phone Number [address] [phone] * (ABNORMAL) CK BLOOD (03/25/2016 4:37 PM CDT) CK Total 19(L) 30 - 200 Units/L [facility] Blood specimen (specimen) BLOOD SPECIMEN / Unknown 03/25/2016 4:37 PM CDT 03/25/2016 5:49 PM CDT Eliza Daly MD LAB - CHEMISTR Y ORDERABLES Performing Organization Address [facility] Co de Phone Number [address] [phone] * TSH (03/25/2016 4:37 PM CDT) TSH 1.128 0.350 - 4.940 uIU/mL [facility] Blood specimen (specimen) BLOOD SPECIMEN / Unknown 03/25/2016 4:37 PM CDT 03/25/2016 5:49 PM CDT Eliza Daly MD LAB - CHEMISTR Y ORDERABLES Performing Organization Address [facility] Co de Phone Number [address] [phone] * T4 FREE (03/25/2016 4:37 PM CDT) T4 Free 1.1 0.7 - 1.5 ng/dL [facility] Blood specimen (specimen) BLOOD SPECIMEN / Unknown 03/25/2016 4:37 PM CDT 03/25/2016 5:49 PM CDT Eliza Daly MD LAB - CHEMISTR Y ORDERABLES Performing Organization Address [facility] Co de Phone Number [address] [phone] * HEPATITIS C ANTIBODY (03/25/2016 4:37 PM CDT) Hepatitis C Antibody Non-react ilan Non-reac tive [facility] Comment: Hepatitis C Antibody screen indicates [...] - CHEMISTR Y ORDERABLES Performing Organization Address [facility] Co de Phone Number [address] [phone] * COMPLEMENT C3 (03/25/2016 4:37 PM CDT) Pathologist [facility] Complement C3 130 82 - 193 mg/dL [facility] Blood specimen (specimen) BLOOD SPECIMEN / Unknown 03/25/2016 4:37 PM CDT 03/25/2016 5:49 PM CDT Eliza Daly MD LAB - CHEMISTR Y ORDERABLES Performing Organization Address [facility] Co de Phone Number [address] [phone] * XR KNEE RIGHT 3VW (03/25/2016 4:23 PM CDT) Anatomical Region Laterality Modality Lower Extremity Other Impressions 03/25/2016 4:48 PM CDT Impression: 1. Right hand radiographs demonstrate normal joint spaces. There is mild sclerosis in the second proximal phalanx base of uncertain significance but not clearly arthritis related. Mild soft tissue swelling is present at the metacarpal phalangeal joints. 2. Right wrist radiographs demonstrate erosions in the first metacarpal base, trapezium, and scaphoid, as well as mild periarticular osteopenia and moderate diffuse soft tissue swelling. 3. Left hand radiographs demonstrate no significant arthritis. 4. Left wrist radiographs demonstrate probable erosions in the first metacarpal base and trapezium (versus cysts). 5. Pelvic and bilateral hip radiographs are normal. 6. Right knee radiographs demonstrate a moderate effusion, but otherwise no radiographic evidence of arthritis. 7. Right ankle radiographs demonstrate no evidence of arthritis, but minimal anterior soft tissue swelling. 8. Left ankle radiographs demonstrate no evidence of arthritis, but minimal anterior soft tissue swelling. 9. Right foot radiographs demonstrate no evidence of arthritis. 10. Left foot radiographs demonstrate no evidence of arthritis. 11. Cervical spine radiographs demonstrate mild degenerative disc disease at C5- 6, and mild anterolisthesis measuring less than 2 mm at C3-4 and C4-5. 12. The findings in the wrists are suggestive of rheumatoid arthritis or other erosive arthropathy. The right knee effusion likely reflects the same process. This report was electronically signed by RANJIT BETANCOURT MD on 03/25/2016 4:48 PM . Narrative 03/25/2016 4:48 PM CDT Exam: 1. XR HAND RIGHT 2 VW, 2. XR SPINE CERVICAL 2 OR 3 VIEWS, 3. XR HIPS BILAT 2 VW W/ PELVIS, 4. XR WRIST RIGHT 2 VW, 5. XR WRIST LEFT 2 VW, 6. XR KNEE RIGHT 3 VW, 7. XR ANKLE RIGHT 2 VW, 8. XR HAND LEFT 2 VW, 9. XR FOOT RIGHT 2 VW, 10. XR FOOT LEFT 2 VW, 11. XR ANKLE LEFT 2 VW History: 40-year-old female with arthralgia of multiple joints and neck pain Comparison: None available. Findings: Right hand: No acute fracture or dislocation is seen. The joint spaces are normal. There is mild sclerosis at the base of the second proximal phalanx, but no erosions are seen within the hand. Erosions are noted in the wrist as described below. Bone density is normal. There is mild soft tissue swelling at the metacarpal phalangeal joints, and possibly also at several interphalangeal joints. Right wrist: No acute fracture or dislocation is present. Erosions are seen in the base of the first metacarpal, trapezium, and the radial aspect of the scaphoid. A lucency within the capitate may represent a cyst or an erosion. There is mild joint space narrowing at the first carpometacarpal joint. Otherwise the joint spaces are normal. There is mild periarticular osteopenia, and moderate diffuse soft tissue swelling. Left hand: No acute fracture or dislocation is present. The joint spaces are normal. No erosions are seen. The bone density is normal. The soft tissues are normal. Left wrist: No acute fracture or dislocation is present. Lucencies are present within the first metacarpal base and trapezium. These may represent cysts and/or erosions, but given the erosions in the contralateral right wrist probably represent erosions. A small one may be present in the scaphoid is well. The joint spaces are normal. There is mild periarticular osteopenia.. There is moderate diffuse soft tissue swelling. Pelvis and bilateral hips: No acute fracture or dislocation of either hip is seen. The joint spaces are normal. There are no erosions. Bone density is normal. The pubic symphysis and sacroiliac joints are normal. No displaced pelvic fracture is seen. 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 Right knee: No acute fracture or dislocation is present. No erosions are seen. The joint spaces are normal. There is a moderate effusion. Bone density is normal. Right ankle: There is no fracture or dislocation. The joint spaces are normal. No erosions are present. Bone mineralization is normal. There is minimal soft tissue swelling anteriorly. Left ankle: There is no fracture or dislocation. The joint spaces are normal. No erosions are present. Bone mineralization is normal. There is minimal soft tissue swelling anteriorly. Right foot: There is no fracture or dislocation. The joint spaces are normal. No erosions are present. Bone mineralization is normal. The soft tissues are normal. Left foot: There is no fracture or dislocation. The joint spaces are normal. No erosions are present. Bone mineralization is normal. The soft tissues are normal. Cervical spine: There is mild nonspecific reversal of the cervical lordosis. There is mild anterolisthesis measuring less than 2 mm at C3-3-4 and C4-5. The alignment at the other levels as normal. There is mild disc space narrowing at C5-6 with small osteophytes. The other disc spaces are normal. The prevertebral soft tissues are normal. No fracture is present. Procedure Note Ranjit Betancourt MD - 11/25/2017 Exam: 1. XR HAND RIGHT 2 VW, 2. XR SPINE CERVICAL 2 OR 3 VIEWS, 3. XR HIPS BILAT 2 VW W/ PELVIS, 4. XR WRIST RIGHT 2 VW, 5. XR WRIST LEFT 2 VW, 6. XR KNEE RIGHT 3 VW, 7. XR ANKLE RIGHT 2 VW, 8. XR HAND LEFT 2 VW, 9. XR FOOT RIGHT 2 VW, 10. XR FOOT LEFT 2 VW, 11. XR ANKLE LEFT 2 VW History: 40-year-old female with arthralgia of multiple joints and neckpain Comparison: None available. Findings: Right hand: No acute fracture or dislocation is seen. The joint spaces are normal.There is mild sclerosis at the base of the second proximal phalanx, but noerosions are seen within the hand. Erosions are noted in the wrist asdescribed below. Bone density is normal. There is mild soft tissue swelling at the metacarpal phalangealjoints, and possibly also at several interphalangeal joints. Right wrist: No acute fracture or dislocation is present. Erosions are seen in the baseof the first metacarpal, trapezium, and the radial aspect of the scaphoid.A lucency within the capitate may represent a cyst or an erosion. There ismild joint space narrowing at the first carpometacarpal joint. Otherwise the joint spaces are normal.There is mild periarticular osteopenia, and moderate diffuse soft tissueswelling. Left hand: No acute fracture or dislocation is present. The joint spaces are normal.No erosions are seen. The bone density is normal. The soft tissues arenormal. Left wrist: No acute fracture or dislocation is present. Lucencies are present withinthe first metacarpal base and trapezium. These may represent cysts and/orerosions, but given the erosions in the contralateral right wrist probablyrepresent erosions. A small one may be present in the scaphoid is well. The joint spaces are normal.There is mild periarticular osteopenia.. There is moderate diffuse softtissue swelling. Pelvis and bilateral hips: No acute fracture or dislocation of either hip is seen. The joint spacesare normal. There are no erosions. Bone density is normal. The pubicsymphysis and sacroiliac joints are normal. No displaced pelvic fractureis seen. 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 Right knee: No acute fracture or dislocation is present. No erosions are seen. Thejoint spaces are normal. There is a moderate effusion. Bone density isnormal. Right ankle: There is no fracture or dislocation. The joint spaces are normal. Noerosions are present. Bone mineralization is normal. There is minimal softtissue swelling anteriorly. Left ankle: There is no fracture or dislocation. The joint spaces are normal. Noerosions are present. Bone mineralization is normal. There is minimal softtissue swelling anteriorly. Right foot: There is no fracture or dislocation. The joint spaces are normal. Noerosions are present. Bone mineralization is normal. The soft tissues arenormal. Left foot: There is no fracture or dislocation. The joint spaces are normal. Noerosions are present. Bone mineralization is normal. The soft tissues arenormal. Cervical spine: There is mild nonspecific reversal of the cervical lordosis. There is mildanterolisthesis measuring less than 2 mm at C3-3-4 and C4-5. The alignmentat the other levels as normal. There is mild disc space narrowing at C5-6with small osteophytes. The other disc spaces are normal. The prevertebral soft tissues are normal. Nofracture is present. IMPRESSION Impression: 1. Right hand radiographs demonstrate normal joint spaces. There is mildsclerosis in the second proximal phalanx base of uncertain significancebut not clearly arthritis related. Mild soft tissue swelling is present atthe metacarpal phalangeal joints. 2. Right wrist radiographs demonstrate erosions in the first metacarpalbase, trapezium, and scaphoid, as well as mild periarticular osteopeniaand moderate diffuse soft tissue swelling. 3. Left hand radiographs demonstrate no significant arthritis. 4. Left wrist radiographs demonstrate probable erosions in the firstmetacarpal base and trapezium (versus cysts). 5. Pelvic and bilateral hip radiographs are normal. 6. Right knee radiographs demonstrate a moderate effusion, but otherwiseno radiographic evidence of arthritis. 7. Right ankle radiographs demonstrate no evidence of arthritis, butminimal anterior soft tissue swelling. 8. Left ankle radiographs demonstrate no evidence of arthritis, butminimal anterior soft tissue swelling. 9. Right foot radiographs demonstrate no evidence of arthritis. 10. Left foot radiographs demonstrate no evidence of arthritis. 11. Cervical spine radiographs demonstrate mild degenerative disc diseaseat C5- 6, and mild anterolisthesis measuring less than 2 mm at C3-4 andC4-5. 12. The findings in the wrists are suggestive of rheumatoid arthritis orother erosive arthropathy. The right knee effusion likely reflects thesame process. This report was electronically signed by RANJIT BETANCOURT MD on 03/25/20164:48 PM . Eliza Daly MD [facility]AGNO[facility] ORDERABLES * XR FOOT RIGHT 2VW (03/25/2016 4:23 PM CDT) Anatomical Region Laterality Modality Ankle / Foot Other Impressions 03/25/2016 4:48 PM CDT Impression: 1. Right hand radiographs demonstrate normal joint spaces. There is mild sclerosis in the second proximal phalanx base of uncertain significance but not clearly arthritis related. Mild soft tissue swelling is present at the metacarpal phalangeal joints. 2. Right wrist radiographs demonstrate erosions in the first metacarpal base, trapezium, and scaphoid, as well as mild periarticular osteopenia and moderate diffuse soft tissue swelling. 3. Left hand radiographs demonstrate no significant arthritis. 4. Left wrist radiographs demonstrate probable erosions in the first metacarpal base and trapezium (versus cysts). 5. Pelvic and bilateral hip radiographs are normal. 6. Right knee radiographs demonstrate a moderate effusion, but otherwise no radiographic evidence of arthritis. 7. Right ankle radiographs demonstrate no evidence of arthritis, but minimal anterior soft tissue swelling. 8. Left ankle radiographs demonstrate no evidence of arthritis, but minimal anterior soft tissue swelling. 9. Right foot radiographs demonstrate no evidence of arthritis. 10. Left foot radiographs demonstrate no evidence of arthritis. 11. Cervical spine radiographs demonstrate mild degenerative disc disease at C5- 6, and mild anterolisthesis measuring less than 2 mm at C3-4 and C4-5. 12. The findings in the wrists are suggestive of rheumatoid arthritis or other erosive arthropathy. The right knee effusion likely reflects the same process. This report was electronically signed by RANJIT BETANCOURT MD on 03/25/2016 4:48 PM . Narrative 03/25/2016 4:48 PM CDT Exam: 1. XR HAND RIGHT 2 VW, 2. XR SPINE CERVICAL 2 OR 3 VIEWS, 3. XR HIPS BILAT 2 VW W/ PELVIS, 4. XR WRIST RIGHT 2 VW, 5. XR WRIST LEFT 2 VW, 6. XR KNEE RIGHT 3 VW, 7. XR ANKLE RIGHT 2 VW, 8. XR HAND LEFT 2 VW, 9. XR FOOT RIGHT 2 VW, 10. XR FOOT LEFT 2 VW, 11. XR ANKLE LEFT 2 VW History: 40-year-old female with arthralgia of multiple joints and neck pain Comparison: None available. Findings: Right hand: No acute fracture or dislocation is seen. The joint spaces are normal. There is mild sclerosis at the base of the second proximal phalanx, but no erosions are seen within the hand. Erosions are noted in the wrist as described below. Bone density is normal. There is mild soft tissue swelling at the metacarpal phalangeal joints, and possibly also at several interphalangeal joints. Right wrist: No acute fracture or dislocation is present. Erosions are seen in the base of the first metacarpal, trapezium, and the radial aspect of the scaphoid. A lucency within the capitate may represent a cyst or an erosion. There is mild joint space narrowing at the first carpometacarpal joint. Otherwise the joint spaces are normal. There is mild periarticular osteopenia, and moderate diffuse soft tissue swelling. Left hand: No acute fracture or dislocation is present. The joint spaces are normal. No erosions are seen. The bone density is normal. The soft tissues are normal. Left wrist: No acute fracture or dislocation is present. Lucencies are present within the first metacarpal base and trapezium. These may represent cysts and/or erosions, but given the erosions in the contralateral right wrist probably represent erosions. A small one may be present in the scaphoid is well. The joint spaces are normal. There is mild periarticular osteopenia.. There is moderate diffuse soft tissue swelling. Pelvis and bilateral hips: No acute fracture or dislocation of either hip is seen. The joint spaces are normal. There are no erosions. Bone density is normal. The pubic symphysis and sacroiliac joints are normal. No displaced pelvic fracture is seen. 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 Right knee: No acute fracture or dislocation is present. No erosions are seen. The joint spaces are normal. There is a moderate effusion. Bone density is normal. Right ankle: There is no fracture or dislocation. The joint spaces are normal. No erosions are present. Bone mineralization is normal. There is minimal soft tissue swelling anteriorly. Left ankle: There is no fracture or dislocation. The joint spaces are normal. No erosions are present. Bone mineralization is normal. There is minimal soft tissue swelling anteriorly. Right foot: There is no fracture or dislocation. The joint spaces are normal. No erosions are present. Bone mineralization is normal. The soft tissues are normal. Left foot: There is no fracture or dislocation. The joint spaces are normal. No erosions are present. Bone mineralization is normal. The soft tissues are normal. Cervical spine: There is mild nonspecific reversal of the cervical lordosis. There is mild anterolisthesis measuring less than 2 mm at C3-3-4 and C4-5. The alignment at the other levels as normal. There is mild disc space narrowing at C5-6 with small osteophytes. The other disc spaces are normal. The prevertebral soft tissues are normal. No fracture is present. Procedure Note Ranjit Betancourt MD - 11/25/2017 Exam: 1. XR HAND RIGHT 2 VW, 2. XR SPINE CERVICAL 2 OR 3 VIEWS, 3. XR HIPS BILAT 2 VW W/ PELVIS, 4. XR WRIST RIGHT 2 VW, 5. XR WRIST LEFT 2 VW, 6. XR KNEE RIGHT 3 VW, 7. XR ANKLE RIGHT 2 VW, 8. XR HAND LEFT 2 VW, 9. XR FOOT RIGHT 2 VW, 10. XR FOOT LEFT 2 VW, 11. XR ANKLE LEFT 2 VW History: 40-year-old female with arthralgia of multiple joints and neckpain Comparison: None available. Findings: Right hand: No acute fracture or dislocation is seen. The joint spaces are normal.There is mild sclerosis at the base of the second proximal phalanx, but noerosions are seen within the hand. Erosions are noted in the wrist asdescribed below. Bone density is normal. There is mild soft tissue swelling at the metacarpal phalangealjoints, and possibly also at several interphalangeal joints. Right wrist: No acute fracture or dislocation is present. Erosions are seen in the baseof the first metacarpal, trapezium, and the radial aspect of the scaphoid.A lucency within the capitate may represent a cyst or an erosion. There ismild joint space narrowing at the first carpometacarpal joint. Otherwise the joint spaces are normal.There is mild periarticular osteopenia, and moderate diffuse soft tissueswelling. Left hand: No acute fracture or dislocation is present. The joint spaces are normal.No erosions are seen. The bone density is normal. The soft tissues arenormal. Left wrist: No acute fracture or dislocation is present. Lucencies are present withinthe first metacarpal base and trapezium. These may represent cysts and/orerosions, but given the erosions in the contralateral right wrist probablyrepresent erosions. A small one may be present in the scaphoid is well. The joint spaces are normal.There is mild periarticular osteopenia.. There is moderate diffuse softtissue swelling. Pelvis and bilateral hips: No acute fracture or dislocation of either hip is seen. The joint spacesare normal. There are no erosions. Bone density is normal. The pubicsymphysis and sacroiliac joints are normal. No displaced pelvic fractureis seen. 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 Right knee: No acute fracture or dislocation is present. No erosions are seen. Thejoint spaces are normal. There is a moderate effusion. Bone density isnormal. Right ankle: There is no fracture or dislocation. The joint spaces are normal. Noerosions are present. Bone mineralization is normal. There is minimal softtissue swelling anteriorly. Left ankle: There is no fracture or dislocation. The joint spaces are normal. Noerosions are present. Bone mineralization is normal. There is minimal softtissue swelling anteriorly. Right foot: There is no fracture or dislocation. The joint spaces are normal. Noerosions are present. Bone mineralization is normal. The soft tissues arenormal. Left foot: There is no fracture or dislocation. The joint spaces are normal. Noerosions are present. Bone mineralization is normal. The soft tissues arenormal. Cervical spine: There is mild nonspecific reversal of the cervical lordosis. There is mildanterolisthesis measuring less than 2 mm at C3-3-4 and C4-5. The alignmentat the other levels as normal. There is mild disc space narrowing at C5-6with small osteophytes. The other disc spaces are normal. The prevertebral soft tissues are normal. Nofracture is present. IMPRESSION Impression: 1. Right hand radiographs demonstrate normal joint spaces. There is mildsclerosis in the second proximal phalanx base of uncertain significancebut not clearly arthritis related. Mild soft tissue swelling is present atthe metacarpal phalangeal joints. 2. Right wrist radiographs demonstrate erosions in the first metacarpalbase, trapezium, and scaphoid, as well as mild periarticular osteopeniaand moderate diffuse soft tissue swelling. 3. Left hand radiographs demonstrate no significant arthritis. 4. Left wrist radiographs demonstrate probable erosions in the firstmetacarpal base and trapezium (versus cysts). 5. Pelvic and bilateral hip radiographs are normal. 6. Right knee radiographs demonstrate a moderate effusion, but otherwiseno radiographic evidence of arthritis. 7. Right ankle radiographs demonstrate no evidence of arthritis, butminimal anterior soft tissue swelling. 8. Left ankle radiographs demonstrate no evidence of arthritis, butminimal anterior soft tissue swelling. 9. Right foot radiographs demonstrate no evidence of arthritis. 10. Left foot radiographs demonstrate no evidence of arthritis. 11. Cervical spine radiographs demonstrate mild degenerative disc diseaseat C5- 6, and mild anterolisthesis measuring less than 2 mm at C3-4 andC4-5. 12. The findings in the wrists are suggestive of rheumatoid arthritis orother erosive arthropathy. The right knee effusion likely reflects thesame process. This report was electronically signed by RANJIT BETANCOURT MD on 03/25/20164:48 PM . Eliza Daly MD DIAGNOSTIC [facility] ORDERABLES * XR FOOT LEFT 2VW (03/25/2016 4:23 PM CDT) Anatomical Region Laterality Modality Ankle / Foot Other Impressions 03/25/2016 4:48 PM CDT Impression: 1. Right hand radiographs demonstrate normal joint spaces. There is mild sclerosis in the second proximal phalanx base of uncertain significance but not clearly arthritis related. Mild soft tissue swelling is present at the metacarpal phalangeal joints. 2. Right wrist radiographs demonstrate erosions in the first metacarpal base, trapezium, and scaphoid, as well as mild periarticular osteopenia and moderate diffuse soft tissue swelling. 3. Left hand radiographs demonstrate no significant arthritis. 4. Left wrist radiographs demonstrate probable erosions in the first metacarpal base and trapezium (versus cysts). 5. Pelvic and bilateral hip radiographs are normal. 6. Right knee radiographs demonstrate a moderate effusion, but otherwise no radiographic evidence of arthritis. 7. Right ankle radiographs demonstrate no evidence of arthritis, but minimal anterior soft tissue swelling. 8. Left ankle radiographs demonstrate no evidence of arthritis, but minimal anterior soft tissue swelling. 9. Right foot radiographs demonstrate no evidence of arthritis. 10. Left foot radiographs demonstrate no evidence of arthritis. 11. Cervical spine radiographs demonstrate mild degenerative disc disease at C5- 6, and mild anterolisthesis measuring less than 2 mm at C3-4 and C4-5. 12. The findings in the wrists are suggestive of rheumatoid arthritis or other erosive arthropathy. The right knee effusion likely reflects the same process. This report was electronically signed by RANJIT BETANCOURT MD on 03/25/2016 4:48 PM . Narrative 03/25/2016 4:48 PM CDT Exam: 1. XR HAND RIGHT 2 VW, 2. XR SPINE CERVICAL 2 OR 3 VIEWS, 3. XR HIPS BILAT 2 VW W/ PELVIS, 4. XR WRIST RIGHT 2 VW, 5. XR WRIST LEFT 2 VW, 6. XR KNEE RIGHT 3 VW, 7. XR ANKLE RIGHT 2 VW, 8. XR HAND LEFT 2 VW, 9. XR FOOT RIGHT 2 VW, 10. XR FOOT LEFT 2 VW, 11. XR ANKLE LEFT 2 VW History: 40-year-old female with arthralgia of multiple joints and neck pain Comparison: None available. Findings: Right hand: No acute fracture or dislocation is seen. The joint spaces are normal. There is mild sclerosis at the base of the second proximal phalanx, but no erosions are seen within the hand. Erosions are noted in the wrist as described below. Bone density is normal. There is mild soft tissue swelling at the metacarpal phalangeal joints, and possibly also at several interphalangeal joints. Right wrist: No acute fracture or dislocation is present. Erosions are seen in the base of the first metacarpal, trapezium, and the radial aspect of the scaphoid. A lucency within the capitate may represent a cyst or an erosion. There is mild joint space narrowing at the first carpometacarpal joint. Otherwise the joint spaces are normal. There is mild periarticular osteopenia, and moderate diffuse soft tissue swelling. Left hand: No acute fracture or dislocation is present. The joint spaces are normal. No erosions are seen. The bone density is normal. The soft tissues are normal. Left wrist: No acute fracture or dislocation is present. Lucencies are present within the first metacarpal base and trapezium. These may represent cysts and/or erosions, but given the erosions in the contralateral right wrist probably represent erosions. A small one may be present in the scaphoid is well. The joint spaces are normal. There is mild periarticular osteopenia.. There is moderate diffuse soft tissue swelling. Pelvis and bilateral hips: No acute fracture or dislocation of either hip is seen. The joint spaces are normal. There are no erosions. Bone density is normal. The pubic symphysis and sacroiliac joints are normal. No displaced pelvic fracture is seen. 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 Right knee: No acute fracture or dislocation is present. No erosions are seen. The joint spaces are normal. There is a moderate effusion. Bone density is normal. Right ankle: There is no fracture or dislocation. The joint spaces are normal. No erosions are present. Bone mineralization is normal. There is minimal soft tissue swelling anteriorly. Left ankle: There is no fracture or dislocation. The joint spaces are normal. No erosions are present. Bone mineralization is normal. There is minimal soft tissue swelling anteriorly. Right foot: There is no fracture or dislocation. The joint spaces are normal. No erosions are present. Bone mineralization is normal. The soft tissues are normal. Left foot: There is no fracture or dislocation. The joint spaces are normal. No erosions are present. Bone mineralization is normal. The soft tissues are normal. Cervical spine: There is mild nonspecific reversal of the cervical lordosis. There is mild anterolisthesis measuring less than 2 mm at C3-3-4 and C4-5. The alignment at the other levels as normal. There is mild disc space narrowing at C5-6 with small osteophytes. The other disc spaces are normal. The prevertebral soft tissues are normal. No fracture is present. Procedure Note Ranjit Betancourt MD - 11/25/2017 Exam: 1. XR HAND RIGHT 2 VW, 2. XR SPINE CERVICAL 2 OR 3 VIEWS, 3. XR HIPS BILAT 2 VW W/ PELVIS, 4. XR WRIST RIGHT 2 VW, 5. XR WRIST LEFT 2 VW, 6. XR KNEE RIGHT 3 VW, 7. XR ANKLE RIGHT 2 VW, 8. XR HAND LEFT 2 VW, 9. XR FOOT RIGHT 2 VW, 10. XR FOOT LEFT 2 VW, 11. XR ANKLE LEFT 2 VW History: 40-year-old female with arthralgia of multiple joints and neckpain Comparison: None available. Findings: Right hand: No acute fracture or dislocation is seen. The joint spaces are normal.There is mild sclerosis at the base of the second proximal phalanx, but noerosions are seen within the hand. Erosions are noted in the wrist asdescribed below. Bone density is normal. There is mild soft tissue swelling at the metacarpal phalangealjoints, and possibly also at several interphalangeal joints. Right wrist: No acute fracture or dislocation is present. Erosions are seen in the baseof the first metacarpal, trapezium, and the radial aspect of the scaphoid.A lucency within the capitate may represent a cyst or an erosion. There ismild joint space narrowing at the first carpometacarpal joint. Otherwise the joint spaces are normal.There is mild periarticular osteopenia, and moderate diffuse soft tissueswelling. Left hand: No acute fracture or dislocation is present. The joint spaces are normal.No erosions are seen. The bone density is normal. The soft tissues arenormal. Left wrist: No acute fracture or dislocation is present. Lucencies are present withinthe first metacarpal base and trapezium. These may represent cysts and/orerosions, but given the erosions in the contralateral right wrist probablyrepresent erosions. A small one may be present in the scaphoid is well. The joint spaces are normal.There is mild periarticular osteopenia.. There is moderate diffuse softtissue swelling. Pelvis and bilateral hips: No acute fracture or dislocation of either hip is seen. The joint spacesare normal. There are no erosions. Bone density is normal. The pubicsymphysis and sacroiliac joints are normal. No displaced pelvic fractureis seen. 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 Right knee: No acute fracture or dislocation is present. No erosions are seen. Thejoint spaces are normal. There is a moderate effusion. Bone density isnormal. Right ankle: There is no fracture or dislocation. The joint spaces are normal. Noerosions are present. Bone mineralization is normal. There is minimal softtissue swelling anteriorly. Left ankle: There is no fracture or dislocation. The joint spaces are normal. Noerosions are present. Bone mineralization is normal. There is minimal softtissue swelling anteriorly. Right foot: There is no fracture or dislocation. The joint spaces are normal. Noerosions are present. Bone mineralization is normal. The soft tissues arenormal. Left foot: There is no fracture or dislocation. The joint spaces are normal. Noerosions are present. Bone mineralization is normal. The soft tissues arenormal. Cervical spine: There is mild nonspecific reversal of the cervical lordosis. There is mildanterolisthesis measuring less than 2 mm at C3-3-4 and C4-5. The alignmentat the other levels as normal. There is mild disc space narrowing at C5-6with small osteophytes. The other disc spaces are normal. The prevertebral soft tissues are normal. Nofracture is present. IMPRESSION Impression: 1. Right hand radiographs demonstrate normal joint spaces. There is mildsclerosis in the second proximal phalanx base of uncertain significancebut not clearly arthritis related. Mild soft tissue swelling is present atthe metacarpal phalangeal joints. 2. Right wrist radiographs demonstrate erosions in the first metacarpalbase, trapezium, and scaphoid, as well as mild periarticular osteopeniaand moderate diffuse soft tissue swelling. 3. Left hand radiographs demonstrate no significant arthritis. 4. Left wrist radiographs demonstrate probable erosions in the firstmetacarpal base and trapezium (versus cysts). 5. Pelvic and bilateral hip radiographs are normal. 6. Right knee radiographs demonstrate a moderate effusion, but otherwiseno radiographic evidence of arthritis. 7. Right ankle radiographs demonstrate no evidence of arthritis, butminimal anterior soft tissue swelling. 8. Left ankle radiographs demonstrate no evidence of arthritis, butminimal anterior soft tissue swelling. 9. Right foot radiographs demonstrate no evidence of arthritis. 10. Left foot radiographs demonstrate no evidence of arthritis. 11. Cervical spine radiographs demonstrate mild degenerative disc diseaseat C5- 6, and mild anterolisthesis measuring less than 2 mm at C3-4 andC4-5. 12. The findings in the wrists are suggestive of rheumatoid arthritis orother erosive arthropathy. The right knee effusion likely reflects thesame process. This report was electronically signed by RANJIT BETANCOURT MD on 03/25/20164:48 PM . Eliza Daly MD DIAGNOSTIC [facility] ORDERABLES * XR ANKLE RIGHT 2VW (03/25/2016 4:23 PM CDT) Anatomical Region Laterality Modality Lower Extremity Other Impressions 03/25/2016 4:48 PM CDT Impression: 1. Right hand radiographs demonstrate normal joint spaces. There is mild sclerosis in the second proximal phalanx base of uncertain significance but not clearly arthritis related. Mild soft tissue swelling is present at the metacarpal phalangeal joints. 2. Right wrist radiographs demonstrate erosions in the first metacarpal base, trapezium, and scaphoid, as well as mild periarticular osteopenia and moderate diffuse soft tissue swelling. 3. Left hand radiographs demonstrate no significant arthritis. 4. Left wrist radiographs demonstrate probable erosions in the first metacarpal base and trapezium (versus cysts). 5. Pelvic and bilateral hip radiographs are normal. 6. Right knee radiographs demonstrate a moderate effusion, but otherwise no radiographic evidence of arthritis. 7. Right ankle radiographs demonstrate no evidence of arthritis, but minimal anterior soft tissue swelling. 8. Left ankle radiographs demonstrate no evidence of arthritis, but minimal anterior soft tissue swelling. 9. Right foot radiographs demonstrate no evidence of arthritis. 10. Left foot radiographs demonstrate no evidence of arthritis. 11. Cervical spine radiographs demonstrate mild degenerative disc disease at C5- 6, and mild anterolisthesis measuring less than 2 mm at C3-4 and C4-5. 12. The findings in the wrists are suggestive of rheumatoid arthritis or other erosive arthropathy. The right knee effusion likely reflects the same process. This report was electronically signed by RANJIT BETANCOURT MD on 03/25/2016 4:48 PM . Narrative 03/25/2016 4:48 PM CDT Exam: 1. XR HAND RIGHT 2 VW, 2. XR SPINE CERVICAL 2 OR 3 VIEWS, 3. XR HIPS BILAT 2 VW W/ PELVIS, 4. XR WRIST RIGHT 2 VW, 5. XR WRIST LEFT 2 VW, 6. XR KNEE RIGHT 3 VW, 7. XR ANKLE RIGHT 2 VW, 8. XR HAND LEFT 2 VW, 9. XR FOOT RIGHT 2 VW, 10. XR FOOT LEFT 2 VW, 11. XR ANKLE LEFT 2 VW History: 40-year-old female with arthralgia of multiple joints and neck pain Comparison: None available. Findings: Right hand: No acute fracture or dislocation is seen. The joint spaces are normal. There is mild sclerosis at the base of the second proximal phalanx, but no erosions are seen within the hand. Erosions are noted in the wrist as described below. Bone density is normal. There is mild soft tissue swelling at the metacarpal phalangeal joints, and possibly also at several interphalangeal joints. Right wrist: No acute fracture or dislocation is present. Erosions are seen in the base of the first metacarpal, trapezium, and the radial aspect of the scaphoid. A lucency within the capitate may represent a cyst or an erosion. There is mild joint space narrowing at the first carpometacarpal joint. Otherwise the joint spaces are normal. There is mild periarticular osteopenia, and moderate diffuse soft tissue swelling. Left hand: No acute fracture or dislocation is present. The joint spaces are normal. No erosions are seen. The bone density is normal. The soft tissues are normal. Left wrist: No acute fracture or dislocation is present. Lucencies are present within the first metacarpal base and trapezium. These may represent cysts and/or erosions, but given the erosions in the contralateral right wrist probably represent erosions. A small one may be present in the scaphoid is well. The joint spaces are normal. There is mild periarticular osteopenia.. There is moderate diffuse soft tissue swelling. Pelvis and bilateral hips: No acute fracture or dislocation of either hip is seen. The joint spaces are normal. There are no erosions. Bone density is normal. The pubic symphysis and sacroiliac joints are normal. No displaced pelvic fracture is seen. 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 Right knee: No acute fracture or dislocation is present. No erosions are seen. The joint spaces are normal. There is a moderate effusion. Bone density is normal. Right ankle: There is no fracture or dislocation. The joint spaces are normal. No erosions are present. Bone mineralization is normal. There is minimal soft tissue swelling anteriorly. Left ankle: There is no fracture or dislocation. The joint spaces are normal. No erosions are present. Bone mineralization is normal. There is minimal soft tissue swelling anteriorly. Right foot: There is no fracture or dislocation. The joint spaces are normal. No erosions are present. Bone mineralization is normal. The soft tissues are normal. Left foot: There is no fracture or dislocation. The joint spaces are normal. No erosions are present. Bone mineralization is normal. The soft tissues are normal. Cervical spine: There is mild nonspecific reversal of the cervical lordosis. There is mild anterolisthesis measuring less than 2 mm at C3-3-4 and C4-5. The alignment at the other levels as normal. There is mild disc space narrowing at C5-6 with small osteophytes. The other disc spaces are normal. The prevertebral soft tissues are normal. No fracture is present. Procedure Note Ranjit Betancourt MD - 11/25/2017 Exam: 1. XR HAND RIGHT 2 VW, 2. XR SPINE CERVICAL 2 OR 3 VIEWS, 3. XR HIPS BILAT 2 VW W/ PELVIS, 4. XR WRIST RIGHT 2 VW, 5. XR WRIST LEFT 2 VW, 6. XR KNEE RIGHT 3 VW, 7. XR ANKLE RIGHT 2 VW, 8. XR HAND LEFT 2 VW, 9. XR FOOT RIGHT 2 VW, 10. XR FOOT LEFT 2 VW, 11. XR ANKLE LEFT 2 VW History: 40-year-old female with arthralgia of multiple joints and neckpain Comparison: None available. Findings: Right hand: No acute fracture or dislocation is seen. The joint spaces are normal.There is mild sclerosis at the base of the second proximal phalanx, but noerosions are seen within the hand. Erosions are noted in the wrist asdescribed below. Bone density is normal. There is mild soft tissue swelling at the metacarpal phalangealjoints, and possibly also at several interphalangeal joints. Right wrist: No acute fracture or dislocation is present. Erosions are seen in the baseof the first metacarpal, trapezium, and the radial aspect of the scaphoid.A lucency within the capitate may represent a cyst or an erosion. There ismild joint space narrowing at the first carpometacarpal joint. Otherwise the joint spaces are normal.There is mild periarticular osteopenia, and moderate diffuse soft tissueswelling. Left hand: No acute fracture or dislocation is present. The joint spaces are normal.No erosions are seen. The bone density is normal. The soft tissues arenormal. Left wrist: No acute fracture or dislocation is present. Lucencies are present withinthe first metacarpal base and trapezium. These may represent cysts and/orerosions, but given the erosions in the contralateral right wrist probablyrepresent erosions. A small one may be present in the scaphoid is well. The joint spaces are normal.There is mild periarticular osteopenia.. There is moderate diffuse softtissue swelling. Pelvis and bilateral hips: No acute fracture or dislocation of either hip is seen. The joint spacesare normal. There are no erosions. Bone density is normal. The pubicsymphysis and sacroiliac joints are normal. No displaced pelvic fractureis seen. 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 Right knee: No acute fracture or dislocation is present. No erosions are seen. Thejoint spaces are normal. There is a moderate effusion. Bone density isnormal. Right ankle: There is no fracture or dislocation. The joint spaces are normal. Noerosions are present. Bone mineralization is normal. There is minimal softtissue swelling anteriorly. Left ankle: There is no fracture or dislocation. The joint spaces are normal. Noerosions are present. Bone mineralization is normal. There is minimal softtissue swelling anteriorly. Right foot: There is no fracture or dislocation. The joint spaces are normal. Noerosions are present. Bone mineralization is normal. The soft tissues arenormal. Left foot: There is no fracture or dislocation. The joint spaces are normal. Noerosions are present. Bone mineralization is normal. The soft tissues arenormal. Cervical spine: There is mild nonspecific reversal of the cervical lordosis. There is mildanterolisthesis measuring less than 2 mm at C3-3-4 and C4-5. The alignmentat the other levels as normal. There is mild disc space narrowing at C5-6with small osteophytes. The other disc spaces are normal. The prevertebral soft tissues are normal. Nofracture is present. IMPRESSION Impression: 1. Right hand radiographs demonstrate normal joint spaces. There is mildsclerosis in the second proximal phalanx base of uncertain significancebut not clearly arthritis related. Mild soft tissue swelling is present atthe metacarpal phalangeal joints. 2. Right wrist radiographs demonstrate erosions in the first metacarpalbase, trapezium, and scaphoid, as well as mild periarticular osteopeniaand moderate diffuse soft tissue swelling. 3. Left hand radiographs demonstrate no significant arthritis. 4. Left wrist radiographs demonstrate probable erosions in the firstmetacarpal base and trapezium (versus cysts). 5. Pelvic and bilateral hip radiographs are normal. 6. Right knee radiographs demonstrate a moderate effusion, but otherwiseno radiographic evidence of arthritis. 7. Right ankle radiographs demonstrate no evidence of arthritis, butminimal anterior soft tissue swelling. 8. Left ankle radiographs demonstrate no evidence of arthritis, butminimal anterior soft tissue swelling. 9. Right foot radiographs demonstrate no evidence of arthritis. 10. Left foot radiographs demonstrate no evidence of arthritis. 11. Cervical spine radiographs demonstrate mild degenerative disc diseaseat C5- 6, and mild anterolisthesis measuring less than 2 mm at C3-4 andC4-5. 12. The findings in the wrists are suggestive of rheumatoid arthritis orother erosive arthropathy. The right knee effusion likely reflects thesame process. This report was electronically signed by RANJIT BETANCOURT MD on 03/25/20164:48 PM . Eliza Daly MD DIAGNOSTIC [facility] ORDERABLES * XR ANKLE LEFT 2VW (03/25/2016 4:23 PM CDT) Anatomical Region Laterality Modality Lower Extremity Other Impressions 03/25/2016 4:48 PM CDT Impression: 1. Right hand radiographs demonstrate normal joint spaces. There is mild sclerosis in the second proximal phalanx base of uncertain significance but not clearly arthritis related. Mild soft tissue swelling is present at the metacarpal phalangeal joints. 2. Right wrist radiographs demonstrate erosions in the first metacarpal base, trapezium, and scaphoid, as well as mild periarticular osteopenia and moderate diffuse soft tissue swelling. 3. Left hand radiographs demonstrate no significant arthritis. 4. Left wrist radiographs demonstrate probable erosions in the first metacarpal base and trapezium (versus cysts). 5. Pelvic and bilateral hip radiographs are normal. 6. Right knee radiographs demonstrate a moderate effusion, but otherwise no radiographic evidence of arthritis. 7. Right ankle radiographs demonstrate no evidence of arthritis, but minimal anterior soft tissue swelling. 8. Left ankle radiographs demonstrate no evidence of arthritis, but minimal anterior soft tissue swelling. 9. Right foot radiographs demonstrate no evidence of arthritis. 10. Left foot radiographs demonstrate no evidence of arthritis. 11. Cervical spine radiographs demonstrate mild degenerative disc disease at C5- 6, and mild anterolisthesis measuring less than 2 mm at C3-4 and C4-5. 12. The findings in the wrists are suggestive of rheumatoid arthritis or other erosive arthropathy. The right knee effusion likely reflects the same process. This report was electronically signed by RANJIT BETANCOURT MD on 03/25/2016 4:48 PM . Narrative 03/25/2016 4:48 PM CDT Exam: 1. XR HAND RIGHT 2 VW, 2. XR SPINE CERVICAL 2 OR 3 VIEWS, 3. XR HIPS BILAT 2 VW W/ PELVIS, 4. XR WRIST RIGHT 2 VW, 5. XR WRIST LEFT 2 VW, 6. XR KNEE RIGHT 3 VW, 7. XR ANKLE RIGHT 2 VW, 8. XR HAND LEFT 2 VW, 9. XR FOOT RIGHT 2 VW, 10. XR FOOT LEFT 2 VW, 11. XR ANKLE LEFT 2 VW History: 40-year-old female with arthralgia of multiple joints and neck pain Comparison: None available. Findings: Right hand: No acute fracture or dislocation is seen. The joint spaces are normal. There is mild sclerosis at the base of the second proximal phalanx, but no erosions are seen within the hand. Erosions are noted in the wrist as described below. Bone density is normal. There is mild soft tissue swelling at the metacarpal phalangeal joints, and possibly also at several interphalangeal joints. Right wrist: No acute fracture or dislocation is present. Erosions are seen in the base of the first metacarpal, trapezium, and the radial aspect of the scaphoid. A lucency within the capitate may represent a cyst or an erosion. There is mild joint space narrowing at the first carpometacarpal joint. Otherwise the joint spaces are normal. There is mild periarticular osteopenia, and moderate diffuse soft tissue swelling. Left hand: No acute fracture or dislocation is present. The joint spaces are normal. No erosions are seen. The bone density is normal. The soft tissues are normal. Left wrist: No acute fracture or dislocation is present. Lucencies are present within the first metacarpal base and trapezium. These may represent cysts and/or erosions, but given the erosions in the contralateral right wrist probably represent erosions. A small one may be present in the scaphoid is well. The joint spaces are normal. There is mild periarticular osteopenia.. There is moderate diffuse soft tissue swelling. Pelvis and bilateral hips: No acute fracture or dislocation of either hip is seen. The joint spaces are normal. There are no erosions. Bone density is normal. The pubic symphysis and sacroiliac joints are normal. No displaced pelvic fracture is seen. 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 Right knee: No acute fracture or dislocation is present. No erosions are seen. The joint spaces are normal. There is a moderate effusion. Bone density is normal. Right ankle: There is no fracture or dislocation. The joint spaces are normal. No erosions are present. Bone mineralization is normal. There is minimal soft tissue swelling anteriorly. Left ankle: There is no fracture or dislocation. The joint spaces are normal. No erosions are present. Bone mineralization is normal. There is minimal soft tissue swelling anteriorly. Right foot: There is no fracture or dislocation. The joint spaces are normal. No erosions are present. Bone mineralization is normal. The soft tissues are normal. Left foot: There is no fracture or dislocation. The joint spaces are normal. No erosions are present. Bone mineralization is normal. The soft tissues are normal. Cervical spine: There is mild nonspecific reversal of the cervical lordosis. There is mild anterolisthesis measuring less than 2 mm at C3-3-4 and C4-5. The alignment at the other levels as normal. There is mild disc space narrowing at C5-6 with small osteophytes. The other disc spaces are normal. The prevertebral soft tissues are normal. No fracture is present. Procedure Note Ranjit Betancourt MD - 11/25/2017 Exam: 1. XR HAND RIGHT 2 VW, 2. XR SPINE CERVICAL 2 OR 3 VIEWS, 3. XR HIPS BILAT 2 VW W/ PELVIS, 4. XR WRIST RIGHT 2 VW, 5. XR WRIST LEFT 2 VW, 6. XR KNEE RIGHT 3 VW, 7. XR ANKLE RIGHT 2 VW, 8. XR HAND LEFT 2 VW, 9. XR FOOT RIGHT 2 VW, 10. XR FOOT LEFT 2 VW, 11. XR ANKLE LEFT 2 VW History: 40-year-old female with arthralgia of multiple joints and neckpain Comparison: None available. Findings: Right hand: No acute fracture or dislocation is seen. The joint spaces are normal.There is mild sclerosis at the base of the second proximal phalanx, but noerosions are seen within the hand. Erosions are noted in the wrist asdescribed below. Bone density is normal. There is mild soft tissue swelling at the metacarpal phalangealjoints, and possibly also at several interphalangeal joints. Right wrist: No acute fracture or dislocation is present. Erosions are seen in the baseof the first metacarpal, trapezium, and the radial aspect of the scaphoid.A lucency within the capitate may represent a cyst or an erosion. There ismild joint space narrowing at the first carpometacarpal joint. Otherwise the joint spaces are normal.There is mild periarticular osteopenia, and moderate diffuse soft tissueswelling. Left hand: No acute fracture or dislocation is present. The joint spaces are normal.No erosions are seen. The bone density is normal. The soft tissues arenormal. Left wrist: No acute fracture or dislocation is present. Lucencies are present withinthe first metacarpal base and trapezium. These may represent cysts and/orerosions, but given the erosions in the contralateral right wrist probablyrepresent erosions. A small one may be present in the scaphoid is well. The joint spaces are normal.There is mild periarticular osteopenia.. There is moderate diffuse softtissue swelling. Pelvis and bilateral hips: No acute fracture or dislocation of either hip is seen. The joint spacesare normal. There are no erosions. Bone density is normal. The pubicsymphysis and sacroiliac joints are normal. No displaced pelvic fractureis seen. 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 Right knee: No acute fracture or dislocation is present. No erosions are seen. Thejoint spaces are normal. There is a moderate effusion. Bone density isnormal. Right ankle: There is no fracture or dislocation. The joint spaces are normal. Noerosions are present. Bone mineralization is normal. There is minimal softtissue swelling anteriorly. Left ankle: There is no fracture or dislocation. The joint spaces are normal. Noerosions are present. Bone mineralization is normal. There is minimal softtissue swelling anteriorly. Right foot: There is no fracture or dislocation. The joint spaces are normal. Noerosions are present. Bone mineralization is normal. The soft tissues arenormal. Left foot: There is no fracture or dislocation. The joint spaces are normal. Noerosions are present. Bone mineralization is normal. The soft tissues arenormal. Cervical spine: There is mild nonspecific reversal of the cervical lordosis. There is mildanterolisthesis measuring less than 2 mm at C3-3-4 and C4-5. The alignmentat the other levels as normal. There is mild disc space narrowing at C5-6with small osteophytes. The other disc spaces are normal. The prevertebral soft tissues are normal. Nofracture is present. IMPRESSION Impression: 1. Right hand radiographs demonstrate normal joint spaces. There is mildsclerosis in the second proximal phalanx base of uncertain significancebut not clearly arthritis related. Mild soft tissue swelling is present atthe metacarpal phalangeal joints. 2. Right wrist radiographs demonstrate erosions in the first metacarpalbase, trapezium, and scaphoid, as well as mild periarticular osteopeniaand moderate diffuse soft tissue swelling. 3. Left hand radiographs demonstrate no significant arthritis. 4. Left wrist radiographs demonstrate probable erosions in the firstmetacarpal base and trapezium (versus cysts). 5. Pelvic and bilateral hip radiographs are normal. 6. Right knee radiographs demonstrate a moderate effusion, but otherwiseno radiographic evidence of arthritis. 7. Right ankle radiographs demonstrate no evidence of arthritis, butminimal anterior soft tissue swelling. 8. Left ankle radiographs demonstrate no evidence of arthritis, butminimal anterior soft tissue swelling. 9. Right foot radiographs demonstrate no evidence of arthritis. 10. Left foot radiographs demonstrate no evidence of arthritis. 11. Cervical spine radiographs demonstrate mild degenerative disc diseaseat C5- 6, and mild anterolisthesis measuring less than 2 mm at C3-4 andC4-5. 12. The findings in the wrists are suggestive of rheumatoid arthritis orother erosive arthropathy. The right knee effusion likely reflects thesame process. This report was electronically signed by RANJIT BETANCOURT MD on 03/25/20164:48 PM . Eliza Daly MD DIAGNOSTIC [facility] ORDERABLES * XR PELVIS W BILAT HIP 2VW (03/25/2016 4:23 PM CDT) Anatomical Region Laterality Modality Pelvis, Lower Extremity Other Impressions 03/25/2016 4:48 PM CDT Impression: 1. Right hand radiographs demonstrate normal joint spaces. There is mild sclerosis in the second proximal phalanx base of uncertain significance but not clearly arthritis related. Mild soft tissue swelling is present at the metacarpal phalangeal joints. 2. Right wrist radiographs demonstrate erosions in the first metacarpal base, trapezium, and scaphoid, as well as mild periarticular osteopenia and moderate diffuse soft tissue swelling. 3. Left hand radiographs demonstrate no significant arthritis. 4. Left wrist radiographs demonstrate probable erosions in the first metacarpal base and trapezium (versus cysts). 5. Pelvic and bilateral hip radiographs are normal. 6. Right knee radiographs demonstrate a moderate effusion, but otherwise no radiographic evidence of arthritis. 7. Right ankle radiographs demonstrate no evidence of arthritis, but minimal anterior soft tissue swelling. 8. Left ankle radiographs demonstrate no evidence of arthritis, but minimal anterior soft tissue swelling. 9. Right foot radiographs demonstrate no evidence of arthritis. 10. Left foot radiographs demonstrate no evidence of arthritis. 11. Cervical spine radiographs demonstrate mild degenerative disc disease at C5- 6, and mild anterolisthesis measuring less than 2 mm at C3-4 and C4-5. 12. The findings in the wrists are suggestive of rheumatoid arthritis or other erosive arthropathy. The right knee effusion likely reflects the same process. This report was electronically signed by RANJIT BETANCOURT MD on 03/25/2016 4:48 PM . Narrative 03/25/2016 4:48 PM CDT Exam: 1. XR HAND RIGHT 2 VW, 2. XR SPINE CERVICAL 2 OR 3 VIEWS, 3. XR HIPS BILAT 2 VW W/ PELVIS, 4. XR WRIST RIGHT 2 VW, 5. XR WRIST LEFT 2 VW, 6. XR KNEE RIGHT 3 VW, 7. XR ANKLE RIGHT 2 VW, 8. XR HAND LEFT 2 VW, 9. XR FOOT RIGHT 2 VW, 10. XR FOOT LEFT 2 VW, 11. XR ANKLE LEFT 2 VW History: 40-year-old female with arthralgia of multiple joints and neck pain Comparison: None available. Findings: Right hand: No acute fracture or dislocation is seen. The joint spaces are normal. There is mild sclerosis at the base of the second proximal phalanx, but no erosions are seen within the hand. Erosions are noted in the wrist as described below. Bone density is normal. There is mild soft tissue swelling at the metacarpal phalangeal joints, and possibly also at several interphalangeal joints. Right wrist: No acute fracture or dislocation is present. Erosions are seen in the base of the first metacarpal, trapezium, and the radial aspect of the scaphoid. A lucency within the capitate may represent a cyst or an erosion. There is mild joint space narrowing at the first carpometacarpal joint. Otherwise the joint spaces are normal. There is mild periarticular osteopenia, and moderate diffuse soft tissue swelling. Left hand: No acute fracture or dislocation is present. The joint spaces are normal. No erosions are seen. The bone density is normal. The soft tissues are normal. Left wrist: No acute fracture or dislocation is present. Lucencies are present within the first metacarpal base and trapezium. These may represent cysts and/or erosions, but given the erosions in the contralateral right wrist probably represent erosions. A small one may be present in the scaphoid is well. The joint spaces are normal. There is mild periarticular osteopenia.. There is moderate diffuse soft tissue swelling. Pelvis and bilateral hips: No acute fracture or dislocation of either hip is seen. The joint spaces are normal. There are no erosions. Bone density is normal. The pubic symphysis and sacroiliac joints are normal. No displaced pelvic fracture is seen. 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 Right knee: No acute fracture or dislocation is present. No erosions are seen. The joint spaces are normal. There is a moderate effusion. Bone density is normal. Right ankle: There is no fracture or dislocation. The joint spaces are normal. No erosions are present. Bone mineralization is normal. There is minimal soft tissue swelling anteriorly. Left ankle: There is no fracture or dislocation. The joint spaces are normal. No erosions are present. Bone mineralization is normal. There is minimal soft tissue swelling anteriorly. Right foot: There is no fracture or dislocation. The joint spaces are normal. No erosions are present. Bone mineralization is normal. The soft tissues are normal. Left foot: There is no fracture or dislocation. The joint spaces are normal. No erosions are present. Bone mineralization is normal. The soft tissues are normal. Cervical spine: There is mild nonspecific reversal of the cervical lordosis. There is mild anterolisthesis measuring less than 2 mm at C3-3-4 and C4-5. The alignment at the other levels as normal. There is mild disc space narrowing at C5-6 with small osteophytes. The other disc spaces are normal. The prevertebral soft tissues are normal. No fracture is present. Procedure Note Ranjit Betancourt MD - 11/25/2017 Exam: 1. XR HAND RIGHT 2 VW, 2. XR SPINE CERVICAL 2 OR 3 VIEWS, 3. XR HIPS BILAT 2 VW W/ PELVIS, 4. XR WRIST RIGHT 2 VW, 5. XR WRIST LEFT 2 VW, 6. XR KNEE RIGHT 3 VW, 7. XR ANKLE RIGHT 2 VW, 8. XR HAND LEFT 2 VW, 9. XR FOOT RIGHT 2 VW, 10. XR FOOT LEFT 2 VW, 11. XR ANKLE LEFT 2 VW History: 40-year-old female with arthralgia of multiple joints and neckpain Comparison: None available. Findings: Right hand: No acute fracture or dislocation is seen. The joint spaces are normal.There is mild sclerosis at the base of the second proximal phalanx, but noerosions are seen within the hand. Erosions are noted in the wrist asdescribed below. Bone density is normal. There is mild soft tissue swelling at the metacarpal phalangealjoints, and possibly also at several interphalangeal joints. Right wrist: No acute fracture or dislocation is present. Erosions are seen in the baseof the first metacarpal, trapezium, and the radial aspect of the scaphoid.A lucency within the capitate may represent a cyst or an erosion. There ismild joint space narrowing at the first carpometacarpal joint. Otherwise the joint spaces are normal.There is mild periarticular osteopenia, and moderate diffuse soft tissueswelling. Left hand: No acute fracture or dislocation is present. The joint spaces are normal.No erosions are seen. The bone density is normal. The soft tissues arenormal. Left wrist: No acute fracture or dislocation is present. Lucencies are present withinthe first metacarpal base and trapezium. These may represent cysts and/orerosions, but given the erosions in the contralateral right wrist probablyrepresent erosions. A small one may be present in the scaphoid is well. The joint spaces are normal.There is mild periarticular osteopenia.. There is moderate diffuse softtissue swelling. Pelvis and bilateral hips: No acute fracture or dislocation of either hip is seen. The joint spacesare normal. There are no erosions. Bone density is normal. The pubicsymphysis and sacroiliac joints are normal. No displaced pelvic fractureis seen. 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 Right knee: No acute fracture or dislocation is present. No erosions are seen. Thejoint spaces are normal. There is a moderate effusion. Bone density isnormal. Right ankle: There is no fracture or dislocation. The joint spaces are normal. Noerosions are present. Bone mineralization is normal. There is minimal softtissue swelling anteriorly. Left ankle: There is no fracture or dislocation. The joint spaces are normal. Noerosions are present. Bone mineralization is normal. There is minimal softtissue swelling anteriorly. Right foot: There is no fracture or dislocation. The joint spaces are normal. Noerosions are present. Bone mineralization is normal. The soft tissues arenormal. Left foot: There is no fracture or dislocation. The joint spaces are normal. Noerosions are present. Bone mineralization is normal. The soft tissues arenormal. Cervical spine: There is mild nonspecific reversal of the cervical lordosis. There is mildanterolisthesis measuring less than 2 mm at C3-3-4 and C4-5. The alignmentat the other levels as normal. There is mild disc space narrowing at C5-6with small osteophytes. The other disc spaces are normal. The prevertebral soft tissues are normal. Nofracture is present. IMPRESSION Impression: 1. Right hand radiographs demonstrate normal joint spaces. There is mildsclerosis in the second proximal phalanx base of uncertain significancebut not clearly arthritis related. Mild soft tissue swelling is present atthe metacarpal phalangeal joints. 2. Right wrist radiographs demonstrate erosions in the first metacarpalbase, trapezium, and scaphoid, as well as mild periarticular osteopeniaand moderate diffuse soft tissue swelling. 3. Left hand radiographs demonstrate no significant arthritis. 4. Left wrist radiographs demonstrate probable erosions in the firstmetacarpal base and trapezium (versus cysts). 5. Pelvic and bilateral hip radiographs are normal. 6. Right knee radiographs demonstrate a moderate effusion, but otherwiseno radiographic evidence of arthritis. 7. Right ankle radiographs demonstrate no evidence of arthritis, butminimal anterior soft tissue swelling. 8. Left ankle radiographs demonstrate no evidence of arthritis, butminimal anterior soft tissue swelling. 9. Right foot radiographs demonstrate no evidence of arthritis. 10. Left foot radiographs demonstrate no evidence of arthritis. 11. Cervical spine radiographs demonstrate mild degenerative disc diseaseat C5- 6, and mild anterolisthesis measuring less than 2 mm at C3-4 andC4-5. 12. The findings in the wrists are suggestive of rheumatoid arthritis orother erosive arthropathy. The right knee effusion likely reflects thesame process. This report was electronically signed by RANJIT BETANCOURT MD on 03/25/20164:48 PM . Eliza Daly MD DIAGNOSTIC [facility] ORDERABLES * XR CERVICAL SPINE 2 OR 3VW (03/25/2016 4:23 PM CDT) Anatomical Region Laterality Modality Spine Other Impressions 03/25/2016 4:48 PM CDT Impression: 1. Right hand radiographs demonstrate normal joint spaces. There is mild sclerosis in the second proximal phalanx base of uncertain significance but not clearly arthritis related. Mild soft tissue swelling is present at the metacarpal phalangeal joints. 2. Right wrist radiographs demonstrate erosions in the first metacarpal base, trapezium, and scaphoid, as well as mild periarticular osteopenia and moderate diffuse soft tissue swelling. 3. Left hand radiographs demonstrate no significant arthritis. 4. Left wrist radiographs demonstrate probable erosions in the first metacarpal base and trapezium (versus cysts). 5. Pelvic and bilateral hip radiographs are normal. 6. Right knee radiographs demonstrate a moderate effusion, but otherwise no radiographic evidence of arthritis. 7. Right ankle radiographs demonstrate no evidence of arthritis, but minimal anterior soft tissue swelling. 8. Left ankle radiographs demonstrate no evidence of arthritis, but minimal anterior soft tissue swelling. 9. Right foot radiographs demonstrate no evidence of arthritis. 10. Left foot radiographs demonstrate no evidence of arthritis. 11. Cervical spine radiographs demonstrate mild degenerative disc disease at C5- 6, and mild anterolisthesis measuring less than 2 mm at C3-4 and C4-5. 12. The findings in the wrists are suggestive of rheumatoid arthritis or other erosive arthropathy. The right knee effusion likely reflects the same process. This report was electronically signed by RANJIT BETANCOURT MD on 03/25/2016 4:48 PM . Narrative 03/25/2016 4:48 PM CDT Exam: 1. XR HAND RIGHT 2 VW, 2. XR SPINE CERVICAL 2 OR 3 VIEWS, 3. XR HIPS BILAT 2 VW W/ PELVIS, 4. XR WRIST RIGHT 2 VW, 5. XR WRIST LEFT 2 VW, 6. XR KNEE RIGHT 3 VW, 7. XR ANKLE RIGHT 2 VW, 8. XR HAND LEFT 2 VW, 9. XR FOOT RIGHT 2 VW, 10. XR FOOT LEFT 2 VW, 11. XR ANKLE LEFT 2 VW History: 40-year-old female with arthralgia of multiple joints and neck pain Comparison: None available. Findings: Right hand: No acute fracture or dislocation is seen. The joint spaces are normal. There is mild sclerosis at the base of the second proximal phalanx, but no erosions are seen within the hand. Erosions are noted in the wrist as described below. Bone density is normal. There is mild soft tissue swelling at the metacarpal phalangeal joints, and possibly also at several interphalangeal joints. Right wrist: No acute fracture or dislocation is present. Erosions are seen in the base of the first metacarpal, trapezium, and the radial aspect of the scaphoid. A lucency within the capitate may represent a cyst or an erosion. There is mild joint space narrowing at the first carpometacarpal joint. Otherwise the joint spaces are normal. There is mild periarticular osteopenia, and moderate diffuse soft tissue swelling. Left hand: No acute fracture or dislocation is present. The joint spaces are normal. No erosions are seen. The bone density is normal. The soft tissues are normal. Left wrist: No acute fracture or dislocation is present. Lucencies are present within the first metacarpal base and trapezium. These may represent cysts and/or erosions, but given the erosions in the contralateral right wrist probably represent erosions. A small one may be present in the scaphoid is well. The joint spaces are normal. There is mild periarticular osteopenia.. There is moderate diffuse soft tissue swelling. Pelvis and bilateral hips: No acute fracture or dislocation of either hip is seen. The joint spaces are normal. There are no erosions. Bone density is normal. The pubic symphysis and sacroiliac joints are normal. No displaced pelvic fracture is seen. 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 Right knee: No acute fracture or dislocation is present. No erosions are seen. The joint spaces are normal. There is a moderate effusion. Bone density is normal. Right ankle: There is no fracture or dislocation. The joint spaces are normal. No erosions are present. Bone mineralization is normal. There is minimal soft tissue swelling anteriorly. Left ankle: There is no fracture or dislocation. The joint spaces are normal. No erosions are present. Bone mineralization is normal. There is minimal soft tissue swelling anteriorly. Right foot: There is no fracture or dislocation. The joint spaces are normal. No erosions are present. Bone mineralization is normal. The soft tissues are normal. Left foot: There is no fracture or dislocation. The joint spaces are normal. No erosions are present. Bone mineralization is normal. The soft tissues are normal. Cervical spine: There is mild nonspecific reversal of the cervical lordosis. There is mild anterolisthesis measuring less than 2 mm at C3-3-4 and C4-5. The alignment at the other levels as normal. There is mild disc space narrowing at C5-6 with small osteophytes. The other disc spaces are normal. The prevertebral soft tissues are normal. No fracture is present. Procedure Note Ranjit Betancourt MD - 11/25/2017 Exam: 1. XR HAND RIGHT 2 VW, 2. XR SPINE CERVICAL 2 OR 3 VIEWS, 3. XR HIPS BILAT 2 VW W/ PELVIS, 4. XR WRIST RIGHT 2 VW, 5. XR WRIST LEFT 2 VW, 6. XR KNEE RIGHT 3 VW, 7. XR ANKLE RIGHT 2 VW, 8. XR HAND LEFT 2 VW, 9. XR FOOT RIGHT 2 VW, 10. XR FOOT LEFT 2 VW, 11. XR ANKLE LEFT 2 VW History: 40-year-old female with arthralgia of multiple joints and neckpain Comparison: None available. Findings: Right hand: No acute fracture or dislocation is seen. The joint spaces are normal.There is mild sclerosis at the base of the second proximal phalanx, but noerosions are seen within the hand. Erosions are noted in the wrist asdescribed below. Bone density is normal. There is mild soft tissue swelling at the metacarpal phalangealjoints, and possibly also at several interphalangeal joints. Right wrist: No acute fracture or dislocation is present. Erosions are seen in the baseof the first metacarpal, trapezium, and the radial aspect of the scaphoid.A lucency within the capitate may represent a cyst or an erosion. There ismild joint space narrowing at the first carpometacarpal joint. Otherwise the joint spaces are normal.There is mild periarticular osteopenia, and moderate diffuse soft tissueswelling. Left hand: No acute fracture or dislocation is present. The joint spaces are normal.No erosions are seen. The bone density is normal. The soft tissues arenormal. Left wrist: No acute fracture or dislocation is present. Lucencies are present withinthe first metacarpal base and trapezium. These may represent cysts and/orerosions, but given the erosions in the contralateral right wrist probablyrepresent erosions. A small one may be present in the scaphoid is well. The joint spaces are normal.There is mild periarticular osteopenia.. There is moderate diffuse softtissue swelling. Pelvis and bilateral hips: No acute fracture or dislocation of either hip is seen. The joint spacesare normal. There are no erosions. Bone density is normal. The pubicsymphysis and sacroiliac joints are normal. No displaced pelvic fractureis seen. 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 Right knee: No acute fracture or dislocation is present. No erosions are seen. Thejoint spaces are normal. There is a moderate effusion. Bone density isnormal. Right ankle: There is no fracture or dislocation. The joint spaces are normal. Noerosions are present. Bone mineralization is normal. There is minimal softtissue swelling anteriorly. Left ankle: There is no fracture or dislocation. The joint spaces are normal. Noerosions are present. Bone mineralization is normal. There is minimal softtissue swelling anteriorly. Right foot: There is no fracture or dislocation. The joint spaces are normal. Noerosions are present. Bone mineralization is normal. The soft tissues arenormal. Left foot: There is no fracture or dislocation. The joint spaces are normal. Noerosions are present. Bone mineralization is normal. The soft tissues arenormal. Cervical spine: There is mild nonspecific reversal of the cervical lordosis. There is mildanterolisthesis measuring less than 2 mm at C3-3-4 and C4-5. The alignmentat the other levels as normal. There is mild disc space narrowing at C5-6with small osteophytes. The other disc spaces are normal. The prevertebral soft tissues are normal. Nofracture is present. IMPRESSION Impression: 1. Right hand radiographs demonstrate normal joint spaces. There is mildsclerosis in the second proximal phalanx base of uncertain significancebut not clearly arthritis related. Mild soft tissue swelling is present atthe metacarpal phalangeal joints. 2. Right wrist radiographs demonstrate erosions in the first metacarpalbase, trapezium, and scaphoid, as well as mild periarticular osteopeniaand moderate diffuse soft tissue swelling. 3. Left hand radiographs demonstrate no significant arthritis. 4. Left wrist radiographs demonstrate probable erosions in the firstmetacarpal base and trapezium (versus cysts). 5. Pelvic and bilateral hip radiographs are normal. 6. Right knee radiographs demonstrate a moderate effusion, but otherwiseno radiographic evidence of arthritis. 7. Right ankle radiographs demonstrate no evidence of arthritis, butminimal anterior soft tissue swelling. 8. Left ankle radiographs demonstrate no evidence of arthritis, butminimal anterior soft tissue swelling. 9. Right foot radiographs demonstrate no evidence of arthritis. 10. Left foot radiographs demonstrate no evidence of arthritis. 11. Cervical spine radiographs demonstrate mild degenerative disc diseaseat C5- 6, and mild anterolisthesis measuring less than 2 mm at C3-4 andC4-5. 12. The findings in the wrists are suggestive of rheumatoid arthritis orother erosive arthropathy. The right knee effusion likely reflects thesame process. This report was electronically signed by RANJIT BETANCOURT MD on 03/25/20164:48 PM . Eliza DRAPERABLES Care Teams Data Warehouse Specialist Relationship Specialty Start Date End Date Waldemar Fulton DO [address] [place] [id number] PCP - General Internal Medicine 10/22/24
== END 2024-10-30 15:13 | disposition home or self-care (01) ==
PROVIDERS: PCP Internal Medicine; Visit Provider Internal Medicine
DX: M79.89 Other specified soft tissue disorders (principal); M25.561 Pain in right knee
CPT/HCPCS: 76881; 93971

== ENCOUNTER 2024-12-17 10:24 | Outpatient (CLI) | payer OTHER, SELFPAY ==
--- NOTE | ~2024-12-17 | MM_ITS ---
EXAMINATION: MM screening grey BI w new HISTORY: Screening TECHNIQUE: Craniocaudal and mediolateral oblique 3-D tomosynthesis images were obtained and synthetic 2-D images were generated. CAD analysis was submitted and interpreted. COMPARISON: Comparison to multiple prior studies sequentially, with oldest reviewed study dated 09/26. BREAST PARENCHYMAL COMPOSITION: Dense: The breasts are heterogeneously dense, which may obscure small masses FINDINGS: There is no evidence of suspicious mass, calcification, or architectural distortion to sugg est malignancy in either breast. There has been no suspicious interval change. IMPRESSION: 1. No mammographic evidence of malignancy. 2. Recommend routine screening mammography in one year. BI-RADS Category 1: Negative Reviewed, dictated and finalized at location A.
--- OUTSIDE RECORDS SUMMARY | 2024-12-17 11:57 | XMS_ITS ---
Author Organization [facility] Address [address] [place] [address] Phone Care Team Providers Care Sales Officer Name Role Phone RODERICK AMARO DO Primary Care Provider [phone] JESUS ALBERTO CHINCHILLA, PAULY Melendrez Unavailable [phone] Problems Includes: Active, inactive, and resolved Problems All Visits Onset Date Resolved Date Provider Condition S tatus Anemia 01/25/2019 YANY DANIELLE WHNP-BC Active Last Documented On 01/25/2019 10:52AM ; [facility] Note: secondary to menorrhagia - -2018 Rheumatoid Arthritis 07/08/2016 YANY DANIELLE WHNP-BC Active Last Documented On 6 9:01AM ; [facility] Hyperlipidemia 06/27/2014 YANY DANIELLE WHNP-BC Active Last Documented On 4 9:59AM ; [facility] Note: diet controlled Hypothyroidism 04/25/2011 YANY DANIELLE WHNP-BC Active Last Documented On 1 7:17AM ; [facility] Plan of Treatment Findings Encounter Date Ordered Clinical summary pro vided to patient ENDOMETRIAL BIOPSY with YANY DANIELLE WHNP-BC 01/25/2019 Last Documented On 9 11:08AM ; [facility] Ordered Clinical summary pro vided to patient ANNUAL SOLE SEAMER EXAM with YANY DANIELLE WHNP-BC 07/27/2018 Last Documented On 8 9:04AM ; [facility] Ordered follow-up visit 1 ye ar or as needed ANNUAL SOLE SEAMER EXAM with YANY DANIELLE WHNP-BC 07/27/2018 Last Documented On 8 9:04AM ; [facility] Ordered Clinical summary pro vided to patient ANNUAL SOLE SEAMER EXAM with YANY DANIELLE NP-BC 07/14/2017 Last Documented On 7 9:29AM ; [facility] Ordered follow-up visit 1 ye ar or as needed ANNUAL SOLE SEAMER EXAM with YANY DANIELLE NP-BC 07/14/2017 Last Documented On 7 9:29AM ; [facility] Ordered Clinical summary pro vided to patient ANNUAL SOLE SEAMER EXAM with YANY DANIELLE NP-BC 07/08/2016 Last Documented On 6 9:08AM ; [facility] Ordered follow-up visit 1 ye ar or as needed ANNUAL SOLE SEAMER EXAM with YANY DANIELLE NP-BC 07/08/2016 Last Documented On 6 9:08AM ; [facility] Ordered Clinical summary pro vided to patient ANNUAL SOLE SEAMER EXAM with YANY DANIELLE NP-BC 07/03/2015 Last Documented On 5 9:13AM ; [facility] Ordered follow-up visit 1 ye ar or as needed ANNUAL SOLE SEAMER EXAM with YANY DANIELLE NP-BC 07/03/2015 Last Documented On 5 9:13AM ; [facility] Ordered Clinical summary pro vided to patient ANNUAL SOLE SEAMER EXAM with YANY DANIELLE NP-BC 06/27/2014 Last Documented On 4 10:10AM ; [facility] Ordered follow-up visit 1 ye ar or as needed ANNUAL SOLE SEAMER EXAM with YANY DANIELLE NP-BC 06/27/2014 Last Documented On 4 10:10AM ; [facility] Ordered a urine culture CREDIT COLLECTION ASSOCIATE EXAM with YANY CASTILLO NP-BC 06/21/2013 Last Documented On 3 10:58AM ; [facility] Ordered Clinical summary pro vided to patient CREDIT COLLECTION ASSOCIATE EXAM with YANY DANIELLE NP-BC 06/21/2013 Last Documented On 3 10:58AM ; [facility] Ordered follow-up visit 1 ye ar or as needed CREDIT COLLECTION ASSOCIATE EXAM with YANY DANIELLE NP-BC 06/21/2013 Last Documented On 3 10:58AM ; [facility] Ordered urinalysis CREDIT COLLECTION ASSOCIATE EXAM with YANY DANIELLE W P-BC 06/21/2013 Last Documented On 3 10:58AM ; [facility] Pt. is agreeable to change t o lower dose of ocp due to > 33 yo and is s/p vasectomy. Only taking for cycle control. Had lipid panel per pcp last week CREDIT COLLECTION ASSOCIATE EXAM with YANY DANIELLE [facility]- 05/14/2012 Last Documented On 2 10:04AM ; [facility] Ordered follow-up visit 1 ye ar or as needed CREDIT COLLECTION ASSOCIATE EXAM with YANY DANIELLE [facility]-BC 04/25/2011 Last Documented On 1 9:24AM ; [facility] Ordered follow-up visit 1 ye ar or as needed CREDIT COLLECTION ASSOCIATE EXAM with YANY DANIELLE [facility]- 04/21/2010 Last Documented On 0 10:49AM ; [facility] Referrals To Diagnosis Other RODERICK AMARO DO Excessive M enstruation Note: Dr. Roderick Amaro [facility] - please evaluate elevated cholesterol and LDL. Last Documented On 3 4:29PM ; [facility] Instructions to patient Instructions for patient : p atient is to keep a menstrual diary to help with further evaluation and treatment Last Documented On 9 10:49AM ; [facility] Instructions for patient : B reast Self Exam discussed Last Documented On 8 8:47AM ; [facility] Instructions for patient : B reast Self Exam discussed Last Documented On 7 9:14AM ; [facility] Instructions for patient : B reast Self Exam discussed Last Documented On 6 8:41AM ; [facility] Instructions for patient : B reast Self Exam discussed Last Documented On 5 8:50AM ; [facility] Instructions for patient : B reast Self Exam discussed Last Documented On 4 9:46AM ; [facility] Instructions for patient : B reast Self Exam discussed Last Documented On 3 10:13AM ; [facility] Instructions for patient : K eep the area around the vulva dry. Allow the area to have exposure to air. Avoid irritants such as fabric softeners and perfumed soaps.~ Last Documented On 3 10:51AM ; [facility] Instructions for patient : t he patient was instructed in the use and possible side effects of the medication prescribed. She is to maintain good hydration via p.o. fluids. We also discussed possible triggers for UTI and preventive measures Last Documented On 3 10:51AM ; [facility] Advised d/c scented bath pro ducts Last Documented On 3 10:51AM ; [facility] Patient to call if fever or back pain Last Documented On 3 10:51AM ; [facility] Instructed to decrease carbo nation and caffeine Last Documented On 3 10:51AM ; [facility] Increase water po Last Documented On 3 10:51AM ; [facility] Instructions For Patient: go od handwashing and perineal care Last Documented On 3 10:51AM ; [facility] Instructions for patient : B reast Self Exam discussed Last Documented On 2 9:41AM ; [facility] Instructions for patient : K eep the area around the vulva dry. Allow the area to have exposure to air. Avoid irritants such as fabric softeners and perfumed soaps.~ Last Documented On 2 10:00AM ; [facility] Advised d/c scented bath pro ducts Last Documented On 2 10:00AM ; [facility] Instructions for patient : B reast Self Exam discussed Last Documented On 1 9:01AM ; [facility] Instructions for patient : B reast Self Exam discussed Last Documented On 0 10:41AM ; [facility] Education and Decision Aids were provided during visit for: INFORMED CONSENT DISCUSSION: Endometrial biopsy was discussed in detail including discomfort, insufficient specimen with need to repeat test, and rare incidence of uterine perforation. Patient expressed understanding of the above and consented to the procedure Last Documented On 9 10:49AM ; [facility] Patient Education: Daily rome cium and vitamin D Last Documented On 8 8:47AM ; [facility] Patient Education: weight be aring exercise Last Documented On 8 8:47AM ; [facility] Patient Education: Daily rome cium and vitamin D Last Documented On 7 9:14AM ; [facility] Patient Education: weight be aring exercise Last Documented On 7 9:14AM ; [facility] Patient Education: Daily rome cium and vitamin D Last Documented On 6 8:41AM ; [facility] Patient Education: weight be aring exercise Last Documented On 6 8:41AM ; [facility] Patient Education: Daily rome cium and vitamin D Last Documented On 5 8:50AM ; [facility] Patient Education: weight be aring exercise Last Documented On 5 8:50AM ; [facility] Patient Education: Daily rome cium and vitamin D Last Documented On 4 9:46AM ; [facility] Patient Education: weight be aring exercise Last Documented On 4 9:46AM ; [facility] Patient Education: Daily rome cium and vitamin D Last Documented On 3 10:13AM ; [facility] Patient Education: weight be aring exercise Last Documented On 3 10:13AM ; [facility] Candidiasis Vulvovaginitis I nformation Sheet Given Last Documented On 3 10:51AM ; [facility] Patient Education: Daily rome cium and vitamin D Last Documented On 2 9:41AM ; [facility] Patient Education: weight be aring exercise Last Documented On 2 9:41AM ; [facility] Candidiasis Vulvovaginitis I nformation Sheet Given Last Documented On 2 10:00AM ; [facility] Patient Education: Daily rome cium and vitamin D Last Documented On 1 9:02AM ; [facility] Patient Education: weight be aring exercise Last Documented On 1 9:02AM ; [facility] control consent review ed and signed Last Documented On 1 9:02AM ; [facility] Assessments Includes: Assessments for all patient encounters Findings Encounter Date Menorrhagia ENDOMETRIAL BIOPSY with YANY GANN-SANDRA 01/25/2019 Last Documented On 9 11:08AM ; [facility] NORMAL FEMALE EXAM ANNUAL SOLE SEAMER EXAM with YANYKADEEM DANIELLE WHNP-BC 07/27/2018 Last Documented On 8 9:04AM ; [facility] Screening Malig. Neoplasm Rectum ANNUAL SOLE SEAMER EXAM with YANYKADEEM DANIELLE WHNP-BC 07/27/2018 Last Documented On 8 9:04AM ; [facility] NORMAL FEMALE EXAM ANNUAL SOLE SEAMER EXAM with YANYKADEEM DANIELLE WHNP-BC 07/14/2017 Last Documented On 7 9:29AM ; [facility] Screening Malig. Neoplasm Rectum ANNUAL SOLE SEAMER EXAM with YANYKADEEM DANIELLE WHNP-BC 07/14/2017 Last Documented On 7 9:29AM ; [facility] NORMAL FEMALE EXAM ANNUAL SOLE SEAMER EXAM with YANYKADEEM DANIELLE WHNP-BC 07/08/2016 Last Documented On 6 9:08AM ; [facility] Screening Malig. Neoplasm Rectum ANNUAL SOLE SEAMER EXAM with YANYKADEEM DANIELLE WHNP-BC 07/08/2016 Last Documented On 6 9:08AM ; [facility] NORMAL FEMALE EXAM ANNUAL SOLE SEAMER EXAM with YANYKADEEM DANIELLE WHNP-BC 07/03/2015 Last Documented On 5 9:13AM ; [facility] Screening Malig. Neoplasm Rectum ANNUAL SOLE SEAMER EXAM with YANYKADEEM DANIELLE WHNP-BC 07/03/2015 Last Documented On 5 9:13AM ; [facility] NORMAL FEMALE EXAM ANNUAL SOLE SEAMER EXAM with YANYKADEEM DANIELLE WHNP-BC 06/27/2014 Last Documented On 4 10:10AM ; [facility] Screening Malig. Neoplasm Rectum ANNUAL SOLE SEAMER EXAM with YANYKADEEM DANIELLE WHNP-BC 06/27/2014 Last Documented On 4 10:10AM ; [facility] Contraceptive surveillance PROBLEM VISIT with DC DANIELLE WHNP-BC 06/28/2013 Last Documented On 3 1:33PM ; [facility] Menorrhagia PROBLEM VISIT with YANYKADEEM DANIELLE WHNP-BC 06/28/2013 Last Documented On 3 1:33PM ; [facility] Bijal albicans vulvovaginitis CREDIT COLLECTION ASSOCIATE EXAM with CA ANATOLY DANIELLE WHNP-BC 06/21/2013 Last Documented On 3 10:58AM ; [facility] Essential hematuria CREDIT COLLECTION ASSOCIATE EXAM with YANY DANIELLE NP-BC 06/21/2013 Last Documented On 3 10:58AM ; [facility] NORMAL FEMALE EXAM CREDIT COLLECTION ASSOCIATE EXAM with YANY Cross P-BC 06/21/2013 Last Documented On 3 10:58AM ; [facility] Screening Malig. Neoplasm Rectum CREDIT COLLECTION ASSOCIATE EXAM with Parvin DANIELLE [facility]-BC 06/21/2013 Last Documented On 3 10:58AM ; [facility] Bijal albicans vulvovaginitis CREDIT COLLECTION ASSOCIATE EXAM with DC DANIELLE NP-BC 05/14/2012 Last Documented On 2 10:04AM ; [facility] NORMAL FEMALE EXAM CREDIT COLLECTION ASSOCIATE EXAM with YANY Cross P-BC 05/14/2012 Last Documented On 2 10:04AM ; [facility] Normal routine history and physical CREDIT COLLECTION ASSOCIATE EXAM catina DANIELLE [facility]-BC 04/25/2011 Last Documented On 1 9:24AM ; [facility] Routine pelvic exam CREDIT COLLECTION ASSOCIATE EXAM with YANY DANIELLE NP-BC 04/25/2011 Last Documented On 1 9:24AM ; [facility] Normal routine history and physical CREDIT COLLECTION ASSOCIATE EXAM wit hardeep DANIELLE [facility]-BC 04/21/2010 Last Documented On 0 10:49AM ; [facility] Routine pelvic exam CREDIT COLLECTION ASSOCIATE EXAM with YANY DANIELLE NP-BC 04/21/2010 Last Documented On 0 10:49AM ; [facility] Instructions Includes: Instructions for all patient encounters Instructions to patient Instructions for patient : p atient is to keep a menstrual diary to help with further evaluation and treatment Last Documented On 9 10:49AM ; [facility] Instructions for patient : B reast Self Exam discussed Last Documented On 8 8:47AM ; [facility] Instructions for patient : B reast Self Exam discussed Last Documented On 7 9:14AM ; [facility] Instructions for patient : B reast Self Exam discussed Last Documented On 6 8:41AM ; [facility] Instructions for patient : B reast Self Exam discussed Last Documented On 5 8:50AM ; [facility] Instructions for patient : B reast Self Exam discussed Last Documented On 4 9:46AM ; [facility] Instructions for patient : B reast Self Exam discussed Last Documented On 3 10:13AM ; [facility] Instructions for patient : K eep the area around the vulva dry. Allow the area to have exposure to air. Avoid irritants such as fabric softeners and perfumed soaps.~ Last Documented On 3 10:51AM ; [facility] Instructions for patient : t he patient was instructed in the use and possible side effects of the medication prescribed. She is to maintain good hydration via p.o. fluids. We also discussed possible triggers for UTI and preventive measures Last Documented On 3 10:51AM ; [facility] Advised d/c scented bath pro ducts Last Documented On 3 10:51AM ; [facility] Patient to call if fever or back pain Last Documented On 3 10:51AM ; [facility] Instructed to decrease carbo nation and caffeine Last Documented On 3 10:51AM ; [facility] Increase water po Last Documented On 3 10:51AM ; [facility] Instructions For Patient: go od handwashing and perineal care Last Documented On 3 10:51AM ; [facility] Instructions for patient : B reast Self Exam discussed Last Documented On 2 9:41AM ; [facility] Instructions for patient : K eep the area around the vulva dry. Allow the area to have exposure to air. Avoid irritants such as fabric softeners and perfumed soaps.~ Last Documented On 2 10:00AM ; [facility] Advised d/c scented bath pro ducts Last Documented On 2 10:00AM ; [facility] Instructions for patient : B reast Self Exam discussed Last Documented On 1 9:01AM ; [facility] Instructions for patient : B reast Self Exam discussed Last Documented On 0 10:41AM ; [facility] Education and Decision Aids were provided during visit for: INFORMED CONSENT DISCUSSION: Endometrial biopsy was discussed in detail including discomfort, insufficient specimen with need to repeat test, and rare incidence of uterine perforation. Patient expressed understanding of the above and consented to the procedure Last Documented On 9 10:49AM ; [facility] Patient Education: Daily rome cium and vitamin D Last Documented On 8 8:47AM ; [facility] Patient Education: weight be aring exercise Last Documented On 8 8:47AM ; [facility] Patient Education: Daily rome cium and vitamin D Last Documented On 7 9:14AM ; [facility] Patient Education: weight be aring exercise Last Documented On 7 9:14AM ; [facility] Patient Education: Daily rome cium and vitamin D Last Documented On 6 8:41AM ; [facility] Patient Education: weight be aring exercise Last Documented On 6 8:41AM ; [facility] Patient Education: Daily rome cium and vitamin D Last Documented On 5 8:50AM ; [facility] Patient Education: weight be aring exercise Last Documented On 5 8:50AM ; [facility] Patient Education: Daily rome cium and vitamin D Last Documented On 4 9:46AM ; [facility] Patient Education: weight be aring exercise Last Documented On 4 9:46AM ; [facility] Patient Education: Daily rome cium and vitamin D Last Documented On 3 10:13AM ; [facility] Patient Education: weight be aring exercise Last Documented On 3 10:13AM ; [facility] Candidiasis Vulvovaginitis I nformation Sheet Given Last Documented On 3 10:51AM ; [facility] Patient Education: Daily rome cium and vitamin D Last Documented On 2 9:41AM ; [facility] Patient Education: weight be aring exercise Last Documented On 2 9:41AM ; [facility] Candidiasis Vulvovaginitis I nformation Sheet Given Last Documented On 2 10:00AM ; [facility] Patient Education: Daily rome cium and vitamin D Last Documented On 1 9:02AM ; [facility] Patient Education: weight be aring exercise Last Documented On 1 9:02AM ; [facility] control consent review ed and signed Last Documented On 1 9:02AM ; [facility] Medical Equipment - Implanted Devices Includes: Current and historical Devices No Medical Equipment Recorded Medications Includes: Current and historical Medications Current Medications (continue as prescribed) Lisinopril 10MG Oral Tablet 07/27/2018 Provider: Diagnosis: Last Documented On 07/27/2018 8:50AM By DEEPAK NELSON ; [facility] PredniSONE 5MG Oral Tablet 07/27/2018 Provider: Diagnosis: Last Documented On 07/27/2018 8:51AM By DEEPAK NELSON ; [facility] Arava 10MG Oral Tablet 07/14/2017 Provider: Diagnosis: Last Documented On 07/14/2017 9:21AM By DEEPAK NELSON ; [facility] Levothyroxine Sodium 100 MCG Tablet 07/08/2016 Provi kymberly: Diagnosis: Last Documented On 07/08/2016 8:57AM By DEEPAK NELSON ; [facility] Meloxicam 15 MG Tablet 07/08/2016 Provider: Diagnosis: Last Documented On 07/08/2016 8:58AM By DEEPAK NELSON ; [facility] Hydroxychloroquine Sulfate 200 MG Tablet 07/08/2016 Provider: Diagnosis: Last Documented On 07/08/2016 8:59AM By DEEPAK NELSON ; [facility] Singulair 10 MG Tablet 07/03/2015 Provider: Diagnosis: Last Documented On 07/03/2015 8:59AM By DEEPAK NELSON ; [facility] Fluticasone Propionate 50 MCG/ACT NA SUSP 06/21/2013 Provider: Diagnosis: Last Documented On 06/21/2013 10:25AM By MAYA WAHL LPN ; [facility] raNITIdine HCl 300 MG OR CAPS 04/25/2011 Provider: Diagnosis: Last Documented On 04/25/2011 9:14AM By DEEPAK NELSON ; [facility] Past Medications on file Folic Acid 1 MG Tablet 07/08/2016 - 07/27/2018 Provide r: Diagnosis: Last Documented On 07/27/2018 8:51AM By DEEPAK NELSON ; [facility] Methotrexate 2.5 MG Tablet 07/08/2016 - 07/14/2017 Pro vider: Diagnosis: 6 tabs once a week Last Documented On 07/14/2017 9:20AM By DEEPAK NELSON ; [facility] PredniSONE 5 MG Tablet 07/08/2016 - 07/14/2017 Provide r: Diagnosis: Last Documented On 07/14/2017 9:21AM By DEEPAK NELSON ; [facility] Diflucan 150 MG OR TABS 06/21/2013 - 07/21/2013 Provider: YANY VICTORIA Diagnosis: CANDIDAL VULVOVA GINITIS one po x 1 and rpt. in 3 days Last Documented On 3 10:54AM By YANY VICTORIA ; [facility] Generess FE 0.8-25 MG-MCG OR CHEW 06/21/2013 - 06/28/2013 Provider: YANY CERVANTES Diagnosis: DYSMENORRHEA 3 samples given in office Last Documented On 3 1:19PM By YANY VICTORIA ; [facility] Microgestin 09/16 1-20 MG-MCG OR TABS 06/21/2013 - 05/30 Provider: Diagnosis: Last Documented On 4 9:47AM By YANY VICTORIA ; [facility] Levothyroxine 0.06 MCG MT TABS 06/21/2013 - 07/08/2016 Provider: Diagnosis: 0.05 Last Documented On 07/08/2016 8:57AM By DEEPAK NELSON ; [facility] Macrobid 100 MG OR CAPS 06/21/2013 - 06/24/2013 Provid er: YANY VICTORIA Diagnosis: HEMATURIA NOS Last Documented On 3 10:53AM By YANY VICTORIA ; [facility] Generess FE 0.8-25 MG-MCG OR CHEW 05/16/2013 - 06/21/2013 Provider: YANY VICTORIA Diagnosis: Contraceptive Ma ngmt NOS Last Documented On 3 10:50AM By YANY VICTORIA ; [facility] Generess FE 0.8-25 MG-MCG OR CHEW 08/30/2012 - 05/16/2013 Provider: YANY RAUSCH SHINGLE SAWYER-BC Diagnosis: Last Documented On 3 11:28AM By YANY VICTORIA ; [facility] Generess FE 0.8-25 MG-MCG OR CHEW 05/14/2012 - 08/30/2012 Provider: YANY RAUSCH NP-BC Diagnosis: Last Documented On 3 7:23AM By YANY VICTORIA ; [facility] Diflucan 150 MG OR TABS 05/14/2012 - 06/13/2012 Provid er: YANY VICTORIA Diagnosis: take one dose po x 1 and december rpt. in 3 days. 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 Last Documented On 2 10:00AM By YANY VICTORIA ; [facility] Ortho-Cyclen (28) 0.25-35 MG-MCG OR TABS 04/25/2011 - 04/19/2012 Provider: YANY RAUSCH SHINGLE SAWYER-BC Diagnosis: Last Documented On 1 9:23AM By YANY VICTORIA ; [facility] Ortho-Cyclen (28) 0.25-35 MG-MCG OR TABS 04/21/2010 - 04/25/2011 Provider: YANY RAUSCH SHINGLE SAWYER-BC Diagnosis: Last Documented On 1 9:23AM By YANY VICTORIA ; [facility] Levothyroxine Sodium 25 MCG OR TABS 04/21/2010 - 06/21 Provider: Diagnosis: Last Documented On 06/21/2013 10:24AM By MAYA WAHL LPN ; [facility] Ortho-Cyclen (28) 0.25-35 MG-MCG OR TABS 04/12/2010 - 04/21/2010 Provider: BARRETT MICHELE AM [facility] Diagnosis: Last Documented On 0 10:43AM By YANY DANIELLE [facility] ; [facility] Medications Administered Includes: Administered Medications in patient's chart No Administered Medications Recorded Results Includes: Results from 12/18/2023 through 12/17/2024 No Results Recorded For Specified Dates History of Present Illness History of Present Illness not supported for this document type No History of Present Illness Recorded Social History Description Last Updated Smoking status : Never smoker 01/25/2019 Last Documented On 9 11:08AM ; [facility] The racial background 01/25/2019 Last Documented On 9 11:08AM ; [facility] The racial background is 01/25 Last Documented On 9 11:08AM ; [facility] Procedures and Surgical History Surgical History Last Updated Surgical / procedural history c/s 2015 Last Documented On 6 9:08AM ; [facility] Dilation + Curettage 06/21/2013 Last Documented On 3 10:58AM ; [facility] History of cholecystectomy 06/21/2013 Last Documented On 3 10:58AM ; [facility] Medical History Includes: Medical History in patient's chart Description Last Updated LMP: 12/27/2018 01/25/2019 Last Documented On 9 11:08AM ; [facility] Sexually active 01/25/2019 Last Documented On 9 11:08AM ; [facility] Contraception: vasectomy 01/25/2019 Last Documented On 9 11:08AM ; [facility] History of Pap smear done 07/27/2018 Last Documented On 9 11:08AM ; [facility] History of screening mammogram was perfo rmed 09/26/2018 01/25/2019 Last Documented On 9 11:08AM ; [facility] Result: normal 01/25/2019 Last Documented On 9 11:08AM ; [facility] Result: normal 01/25/2019 Last Documented On 9 11:08AM ; [facility] History of benign essential hypertension 07/27/2018 Last Documented On 8 9:04AM ; [facility] History of hypothyroidism 07/27/2018 Last Documented On 8 9:04AM ; [facility] 1 miscarriage(s) 06/21/2013 Last Documented On 3 10:58AM ; [facility] Aborta 1 06/21/2013 Last Documented On 3 10:58AM ; [facility] 2 06/21/2013 Last Documented On 3 10:58AM ; [facility] Para 1 06/21/2013 Last Documented On 3 10:58AM ; [facility] Thyroid disease 06/21/2013 Last Documented On 3 10:58AM ; [facility] Family History Includes: Family History in patient's chart Description Last Updated Spouse name: Edu Nicole-boyfriend 014 Last Documented On 4 10:10AM ; [facility] Family history of diabetes mellitus lots of people in her family 06/21/2013 Last Documented On 3 10:58AM ; [facility] Family history of heart disease on both sides 06/21/2013 Last Documented On 3 10:58AM ; [facility] Family history of malignant female breast neoplasm paternal grandmother passed at 89 from this 06/21/2013 Last Documented On 3 10:58AM ; [facility] Family history of hypercholesterolemia b oth sides 04/25/2011 Last Documented On 1 9:24AM ; [facility] Family history of hypertension both side s 04/25/2011 Last Documented On 1 9:24AM ; [facility] Family history of Cancer GRANDMOTHER JASON AST CANCER 09/11/2009 Last Documented On 0 3:01PM ; [facility] Family history of Diabetes 2 UNCLES AND FATHER 09/11/2009 Last Documented On 0 3:01PM ; [facility] Family medical history of Breast problem s 09/11/2009 Last Documented On 0 3:01PM ; [facility] Family medical history of high blood pre ssure MOTHER,FATHER,SISTER 09/11/2009 Last Documented On 0 3:01PM ; [facility] Family medical history of High Cholester ol MOTHER 09/11/2009 Last Documented On 0 3:01PM ; [facility] Review of Systems Review of [...] Active Last Documented On 7 9:20AM ; [facility] Insurance Includes: Active Insurance Policies Plan Name Member ID Group # Subscriber Relationship Effect ilan Dates 1 - [facility] CLAIMS DEPT [id number] KORI [place] Clinical Notes Includes: Signed Clinical Notes starting from 09/16/2022 No Clinical Notes Recorded
--- OUTSIDE RECORDS SUMMARY | 2024-12-17 11:57 | XMS_ITS ---
Care Plan - [facility] Created on: December 17, 2024 KORI MUSTAFA : 1975 Sex: Female Author Organization [facility] Address [address] [place] [address] Phone Care Team Providers Care Sap Solution Manager Consultant Name Role Phone RODERICK AMARO DO Primary Care Provider [phone] JESUS ALBERTO CHINCHILLA, PAULY Melendrez Unavailable [phone]
--- OUTSIDE RECORDS SUMMARY | 2024-12-17 11:57 | XMS_ITS | Clinical Summary ---
Author Organization [facility] Address [address] [place] [address] Phone Care Team Providers Care Wage And Salary Administrator Name Role Phone RODERICK AMARO DO Primary Care Provider [phone] JESUS ALBERTO CHINCHILLA, PAULY Melendrez Unavailable [phone] Reason for Visit and Chief Complaint ENDOMETRIAL BIOPSY Problems Includes: Problems addressed during this encounter and other active Problems All Visits Onset Date Resolved Date Provider Condition S tatus Anemia 01/25/2019 YANY DANIELLE WHNP-BC Active Last Documented On 01/25/2019 10:52AM ; [facility] Note: secondary to menorrhagia - -2018 Rheumatoid Arthritis 07/08/2016 YANY DANIELLE WHNP-BC Active Last Documented On 6 9:01AM ; [facility] Hyperlipidemia 06/27/2014 YANY DANIELLE WHNP-BC Active Last Documented On 4 9:59AM ; [facility] Note: diet controlled Hypothyroidism 04/25/2011 YANY DANIELLE WHNP-BC Active Last Documented On 1 7:17AM ; [facility] Plan of Treatment No Plan of Treatment Recorded Assessments Includes: Assessments from this encounter No Assessments Recorded Medical Equipment - Implanted Devices Includes: Current Devices No Medical Equipment Recorded Medications Includes: Medications discussed during this encounter and other current Medications Current Medications (continue as prescribed) Lisinopril 10MG Oral Tablet 07/27/2018 Provider: Diagnosis: Last Documented On 07/27/2018 8:50AM By DEEPAK NELSON ; [facility] PredniSONE 5MG Oral Tablet 07/27/2018 Provider: Diagnosis: Last Documented On 07/27/2018 8:51AM By DEEPAK NELSON ; [facility] Arava 10MG Oral Tablet 07/14/2017 Provider: Diagnosis: Last Documented On 07/14/2017 9:21AM By DEEPAK NELSON ; [facility] Levothyroxine Sodium 100 MCG Tablet 07/08/2016 Provi kymberly: Diagnosis: Last Documented On 07/08/2016 8:57AM By DEEPAK NELSON ; [facility] Meloxicam 15 MG Tablet 07/08/2016 Provider: Diagnosis: Last Documented On 07/08/2016 8:58AM By DEEPAK NELSON ; [facility] Hydroxychloroquine Sulfate 200 MG Tablet 07/08/2016 Provider: Diagnosis: Last Documented On 07/08/2016 8:59AM By DEEPAK NELSON ; [facility] Singulair 10 MG Tablet 07/03/2015 Provider: Diagnosis: Last Documented On 07/03/2015 8:59AM By DEEPAK NELSON ; [facility] Fluticasone Propionate 50 MCG/ACT NA SUSP 06/21/2013 Provider: Diagnosis: Last Documented On 06/21/2013 10:25AM By MAYA WAHL LPN ; [facility] raNITIdine HCl 300 MG OR CAPS 04/25/2011 Provider: Diagnosis: Last Documented On 04/25/2011 9:14AM By DEEPAK NELSON ; [facility] Medications Administered Includes: Administered Medications [...] Active Last Documented On 7 9:20AM ; [facility] Insurance Includes: Active Insurance Policies Plan Name Member ID Group # Subscriber Relationship Effect ilan Dates - [facility] CLAIMS DEPT [id number] KORI MUSTAFA Self Clinical Notes Includes: Clinical Notes from this encounter No Clinical Notes Recorded
--- OUTSIDE RECORDS SUMMARY | 2024-12-17 11:58 | XMS_ITS | Clinical Summary ---
Author Organization [facility] Address [address] [place] [address] Phone Care Team Providers Care Director Of Hemophilia Name Role Phone RODERICK ALVAREZ DO Primary Care Provider [phone] JESUS ALBERTO CHINCHILLA, PAULY Melendrez Unavailable [phone] Reason for Visit and Chief Complaint gynecologic annual exam, gynecologic procedure : endometrial biopsy - The Chief Complaint is: emb for menorrhagia Problems Includes: Problems addressed during this encounter and other active Problems Current Visit Onset Date Resolved Date Provider Conditio n Status Anemia 01/25/2019 YANY DANIELLE WHNP-BC Active Last Documented On 01/25/2019 10:52AM ; [facility] Note: secondary to menorrhagia - -2018 Past Visits Onset Date Resolved Date Provider Condition Status Rheumatoid Arthritis 07/08/2016 YANY Cross HNP-BC Active Last Documented On 6 9:01AM ; [facility] Hyperlipidemia 06/27/2014 YANY DANIELLE WHNP-BC Active Last Documented On 4 9:59AM ; [facility] Note: diet controlled Hypothyroidism 04/25/2011 YANY DANIELLE WHNP-BC Active Last Documented On 1 7:17AM ; [facility] Plan of Treatment - Clinical summary provided to patient - Last Documented On 01/25/2019 11:08AM ; [facility] Instructions to patient Instructions for patient : p atient is to keep a menstrual diary to help with further evaluation and treatment Last Documented On 9 10:49AM ; [facility] Education and Decision Aids were provided during visit for: INFORMED CONSENT DISCUSSION: Endometrial biopsy was discussed in detail including discomfort, insufficient specimen with need to repeat test, and rare incidence of uterine perforation. Patient expressed understanding of the above and consented to the procedure Last Documented On 9 10:49AM ; [facility] Assessments Includes: Assessments from this encounter Findings - Menorrhagia - Last Documented On 01/25/2019 11:08AM ; [facility] Instructions Includes: Instructions from this encounter Instructions to patient Instructions for patient : p atient is to keep a menstrual diary to help with further evaluation and treatment Last Documented On 9 10:49AM ; [facility] Education and Decision Aids were provided during visit for: INFORMED CONSENT DISCUSSION: Endometrial biopsy was discussed in detail including discomfort, insufficient specimen with need to repeat test, and rare incidence of uterine perforation. Patient expressed understanding of the above and consented to the procedure Last Documented On 9 10:49AM ; [facility] Medical Equipment - Implanted Devices Includes: Current Devices No Medical Equipment Recorded Medications Includes: Medications discussed during this encounter and other current Medications Current Medications (continue as prescribed) Lisinopril 10MG Oral Tablet 07/27/2018 Provider: Diagnosis: Last Documented On 07/27/2018 8:50AM By DEEPAK NELSON ; [facility] PredniSONE 5MG Oral Tablet 07/27/2018 Provider: Diagnosis: Last Documented On 07/27/2018 8:51AM By DEEPAK NELSON ; [facility] Arava 10MG Oral Tablet 07/14/2017 Provider: Diagnosis: Last Documented On 07/14/2017 9:21AM By DEEPAK NELSON ; [facility] Levothyroxine Sodium 100 MCG Tablet 07/08/2016 Provi kymberly: Diagnosis: Last Documented On 07/08/2016 8:57AM By DEEPAK NELSON ; [facility] Meloxicam 15 MG Tablet 07/08/2016 Provider: Diagnosis: Last Documented On 07/08/2016 8:58AM By DEEPAK NELSON ; [facility] Hydroxychloroquine Sulfate 200 MG Tablet 07/08/2016 Provider: Diagnosis: Last Documented On 07/08/2016 8:59AM By DEEPAK NELSON ; [facility] Singulair 10 MG Tablet 07/03/2015 Provider: Diagnosis: Last Documented On 07/03/2015 8:59AM By DEEPAK NELSON ; [facility] Fluticasone Propionate 50 MCG/ACT NA SUSP 06/21/2013 Provider: Diagnosis: Last Documented On 06/21/2013 10:25AM By MAYA WAHL LPN ; [facility] raNITIdine HCl 300 MG OR CAPS 04/25/2011 Provider: Diagnosis: Last Documented On 04/25/2011 9:14AM By DEEPAK NELSON ; [facility] Past Medications on file Diflucan 150 MG OR TABS 06/21/2013 - 07/21/2013 Provider: YANY VICTORIA Diagnosis: CANDIDAL VULVOVA GINITIS one po x 1 and rpt. in 3 days Last Documented On 3 10:54AM By YANY VICTORIA ; [facility] Macrobid 100 MG OR CAPS 06/21/2013 - 06/24/2013 Provid er: YANY VICTORIA Diagnosis: HEMATURIA NOS Last Documented On 3 10:53AM By YANY VICTORIA ; [facility] Diflucan 150 MG OR TABS 05/14/2012 - 06/13/2012 Provid er: YANY VICTORIA Diagnosis: take one dose po x 1 and may rpt. in 3 days. Last Documented On 2 10:01AM By YANY VICTORIA ; [facility] Ortho-Cyclen (28) 0.25-35 MG-MCG OR TABS 04/25/2011 - 04/19/2012 Provider: YANY CERVANTES Diagnosis: Last Documented On 1 9:23AM By YANY VICTORIA ; [facility] Medications Administered Includes: Administered Medications from this encounter No Administered Medications Recorded Vital Signs Includes: Vital Signs from this encounter Vital Name 01/25/2019 10:51A 01/25/2019 10: 50A Blood Pressure Sitting L 120/70 BP Cuff Size Regular Height (in) 64 64 Weight (lb) 108 Body Mass Index (kg/m2) 18.5 Body Surface Area (m2) 1.5 Last Documented: On 01/25/2019 10:55A M ; [facility] On 01/25/2019 10:50AM ; [facility] Results Includes: Results discussed during this encounter CBC (INCLUDES DIFF/PLT) [facility] Ordered by YANY VICTORIA on 12/26 Collected: 01/11/2019 Reported: 01/13/20 19 03:45 Last Documented On 9 9:24AM ; [facility] Reviewed by YANY CERVANTES on 01/14/2019; All test results are final unless otherwise noted. WHITE BLOOD CELL COUNT 4.1 Thousand/uL (3.8-10.8) N (Normal) Last Documented On 9 9:24AM ; [facility] RED BLOOD CELL COUNT 3.06 Million/uL (3.80-5.10) L (Low) Last Documented On 9 9:24AM ; [facility] HEMOGLOBIN 9.7 g/dL (11.7-15.5) L (Low) Last Documented On 9 9:24AM ; [facility] HEMATOCRIT 30.6 % (35.0-45.0) L (Low) Last Documented On 9 9:24AM ; [facility] MCV 100.0 fL (80.0-100.0) N (Normal) Last Documented On 9 9:24AM ; [facility] MCH 31.7 pg (27.0-33.0) N (Normal) Last Documented On 9 9:24AM ; [facility] MCHC 31.7 g/dL (32.0-36.0) L (Low) Last Documented On 9 9:24AM ; [facility] RDW 11.7 % (11.0-15.0) N (Normal) Last Documented On 9 9:24AM ; [facility] PLATELET COUNT 189 Thousand/uL (140-400) N (Normal) Last Documented On 9 9:24AM ; [facility] NEUTROPHILS 47.7 % N (Normal) Last Documented On 9 9:24AM ; [facility] ABSOLUTE NEUTROPHILS 1956 cells/uL (2285-1142) N (Normal) Last Documented On 9 9:24AM ; [facility] LYMPHOCYTES 34.0 % N (Normal) Last Documented On 9 9:24AM ; [facility] ABSOLUTE LYMPHOCYTES 1394 cells/uL (850-3900) N (Normal) Last Documented On 9 9:24AM ; [facility] MONOCYTES 11.9 % N (Normal) Last Documented On 9 9:24AM ; [facility] ABSOLUTE MONOCYTES 488 cells/uL (200-950) N (Normal) Last Documented On 9 9:24AM ; [facility] EOSINOPHILS 4.9 % N (Normal) Last Documented On 9 9:24AM ; [facility] ABSOLUTE EOSINOPHILS 201 cells/uL (15-500) N (Normal) Last Documented On 9 9:24AM ; [facility] BASOPHILS 1.5 % N (Normal) Last Documented On 9 9:24AM ; [facility] ABSOLUTE BASOPHILS 62 cells/uL (0-200) N (Normal) Last Documented On 9 9:24AM ; [facility] MPV 10.4 fL (7.5-12.5) N (Normal) Last Documented On 9 9:24AM ; [facility] T4, FREE [facility] Ordered by YANY VICTORIA on 12/26 Collected: 01/11/2019 Reported: 01/13/20 19 03:45 Last Documented On 9 9:24AM ; [facility] Reviewed by YANY CERVANTES on 01/14/2019; All test results are final unless otherwise noted. T4, FREE 1.5 ng/dL (0.8-1.8) N (Normal) Last Documented On 9 9:24AM ; [facility] TSH [facility] Ordered by YANY VICTORIA on 12/26 Collected: 01/11/2019 Reported: 01/13/20 19 03:45 Last Documented On 9 9:24AM ; [facility] Reviewed by YANY CERVANTES on 01/14/2019; All test results are final unless otherwise noted. TSH 1.55 mIU/L N (Normal) Last Documented On 01/14/2019 9:24AM ; [facility] Note: Reference Range > or = 20 [...] 01/25/2019 Last Documented On 9 11:08AM ; [facility] The racial background 01/25/2019 Last Documented On 9 11:08AM ; [facility] The racial background is 01/25 Last Documented On 9 11:08AM ; [facility] Procedures and Surgical History Includes: Procedures from this encounter Procedures Code Diagnosis Performing Provider Service Location Service Date endometrial biopsy was performed ~Procedure Note: Done without complications.~Amt of Tissue: Adequate~Uterine Sound Measurement: Approximately 8 cm after single tooth tenaculum applied to anterior cervix. Excellent hemostasis with silver nitrate x 2. Tolerated well [id number] Last Documented On 9 11:07AM ; [facility] a [place]vag[place] the [place] [id number] Last Documented On 9 10:48AM ; [facility] no uterine enlargement Last Documented On 9 10:48AM ; [facility] mass lesion of the uterus + fibroid- 2.2 cm at largest dimension Last Documented On 9 10:48AM ; [facility] [place] [id number] Last Documented On 9 10:48AM ; [facility] no enlargement of the right ovary Last Documented On 9 10:48AM ; [facility] no enlargement of the left ovary Last Documented On 9 10:48AM ; [facility] no mass on the right ovary Last Documented On 9 10:48AM ; [facility] no mass on the left ovary Last Documented On 9 10:48AM ; [facility] endometrium thickness 7.0 mm Last Documented On 9 10:49AM ; [facility] the cul-de-sac had no fluid present t/v pelvic u/s done 01-17-19 Last Documented On 9 10:48AM ; [facility] Surgical History Last Updated Surgical / procedural history c/s 2015 Last Documented On 9 10:50AM ; [facility] Dilation + Curettage 06/21/2013 Last Documented On 9 10:50AM ; [facility] History of cholecystectomy 06/21/2013 Last Documented On 9 10:50AM ; [facility] Medical History Includes: Medical History addressed during this encounter Description Last Updated LMP: 12/27/2018 01/25/2019 Last Documented On 9 11:08AM ; [facility] Sexually active 01/25/2019 Last Documented On 9 11:08AM ; [facility] Contraception: vasectomy 01/25/2019 Last Documented On 9 11:08AM ; [facility] History of Pap smear done 07/27/2018 Last Documented On 9 11:08AM ; [facility] History of screening mammogram was perfo rmed 09/26/2018 01/25/2019 Last Documented On 9 11:08AM ; [facility] Result: normal 01/25/2019 Last Documented On 9 11:08AM ; [facility] Result: normal 01/25/2019 Last Documented On 9 11:08AM ; [facility] History of benign essential hypertension 07/27/2018 Last Documented On 9 10:50AM ; [facility] History of hypothyroidism 07/27/2018 Last Documented On 9 10:50AM ; [facility] 1 miscarriage(s) 06/21/2013 Last Documented On 9 10:50AM ; [facility] Aborta 1 06/21/2013 Last Documented On 9 10:50AM ; [facility] 2 06/21/2013 Last Documented On 9 10:50AM ; [facility] Para 1 06/21/2013 Last Documented On 9 10:50AM ; [facility] Thyroid disease 06/21/2013 Last Documented On 9 10:50AM ; [facility] Family History Includes: Family History addressed during this encounter Description Last Updated Spouse name: Rehan Mesa-boyfriend 014 Last Documented On 9 10:50AM ; [facility] Family history of diabetes mellitus lots of people in her family 06/21/2013 Last Documented On 9 10:50AM ; [facility] Family history of heart disease on both sides 06/21/2013 Last Documented On 9 10:50AM ; [facility] Family history of malignant female breast neoplasm paternal grandmother passed at 89 from this 06/21/2013 Last Documented On 9 10:50AM ; [facility] Family history of hypercholesterolemia b oth sides 04/25/2011 Last Documented On 9 10:50AM ; [facility] Family history of hypertension both side s 04/25/2011 Last Documented On 9 10:50AM ; [facility] Family history of Cancer GRANDMOTHER JASON AST CANCER 09/11/2009 Last Documented On 9 10:50AM ; [facility] Family history of Diabetes 2 UNCLES AND FATHER 09/11/2009 Last Documented On 9 10:50AM ; [facility] Family medical history of Breast problem s 09/11/2009 Last Documented On 9 10:50AM ; [facility] Family medical history of high blood pre ssure MOTHER,FATHER,SISTER 09/11/2009 Last Documented On 9 10:50AM ; [facility] Family medical history of High Cholester ol MOTHER 09/11/2009 Last Documented On 9 10:50AM ; [facility] Review of Systems Includes: Review of [...] Active Last Documented On 7 9:20AM ; [facility] Encounters Encounter Provider Location Date Check-In Time Check-Out Time Diagnosis ENDOMETRIAL BIOPSY YANY DANIELLE [facility] 01/26/20 19 10:47AM 11:27AM Menorrhagia Insurance Includes: Active Insurance Policies Plan Name Member ID Group # Subscriber Relationship Effect ilan Dates - [facility] CLAIMS DEPT [id number] KORI [place] Clinical Notes Includes: Clinical Notes from this encounter No Clinical Notes Recorded
--- OUTSIDE RECORDS SUMMARY | 2024-12-17 11:58 | XMS_ITS | Clinical Summary ---
Author Organization [facility] Address [address] [place] [address] Care Team Providers Care Metaphysics Teacher Name Role Phone Waldemar Fulton Nestor COYNE Primary Care Provider [phone] Source Comments [facility],non-owned Affiliates and Associated Physician Practices is amultiple site organization consisting of ambulatory clinics and hospital sitesin [place], [place], [place] and [place]. This disclosure is being madepursuant to the Care Everywhere program and may not contain all information available regarding this patient. Last updated 18.[facility] Allergies Active Allergy Reactions Criticality Noted Date Comments Codeine Other Low 03/07/2016 Stomach pain Methotrexate Other Low 02/09/2017 Makes pt's hair fall out Medications * Be aware that medications may not be up to date on this document. Alwaysverify current medications with the patient. fluticasone propionate (FLONASE) 50 MCG/ACT nasal spray 2 (two) sprays DAILY 3 05/26/20 16 Active montelukast (SINGULAIR) 10 MG tablet 5 02/12/20 16 Active amLODIPine (NORVASC) 10 MG tablet Take 1 (one) tablet by mouth once daily 02/28/20 21 Active famotidine (PEPCID) 20 MG tablet TAKE 1 TABLET BY MOUTH TWICE DAILY NEEDED FOR REFLUX 03/07/20 21 Active metoprolol tartrate (LOPRESSOR) 50 MG tablet Take 1 (one) tablet by mouth every 12 hours 03/24/20 21 Active levothyroxine (Synthroid) 112 MCG tablet Take 1 (one) tablet by mouth once daily 04/28/20 24 Active leflunomide (Arava) 10 MG tabletIndicat ions:Rheumato id arthritis 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 factor (HCC) Take 1 (one) tablet by mouth once daily 90 tablet 1 05/06/20 24 Active methylPREDNIS olone (Medrol Dosepak) 4 MG tabletIndicat ions:Inflamma tory arthritis flare Take by mouth as directed Take as directed by mouth per package instructions. Reasons: Inflammatory arthritis flare 21 tablet 07/18/20 24 Active Additional Information Patient not taking.Reported on 08/19/2024 predniSONE (Deltasone) 5 MG tablet Take 1 (one) tablet by mouth 2 times daily 60 tablet 1 08/19/20 24 Active sulfaSALAzine EC (Azulfidine Entab) 500 MG tablet Take 3 (three) tablets by mouth 2 times daily 540 tablet 1 08/19/20 24 Active Enbrel SureClick 50 MG/ML auto-injector penIndication s:Rheumatoid arthritis 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 factor (HCC) INJECT 1 PEN SUBCUTANEOUSLY EVERY 7 DAYS 4 mL 12/07/19 25 Active etanercept (Enbrel SureClick) 50 MG/ML auto-injector penIndication s:Rheumatoid arthritis 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 factor (HCC) Inject 50 (fifty) mg subcutaneously every 7 days 4 mL 6 05/06/20 24 2024 Discontinued Active Problems Problem Noted Date Diagnosed Date Encounter for long-term (cur rent) use of high-risk medication 06/12/2018 Encounter for therapeutic drug level monitoring 02/07/2017 Rheumatoid arthritis with negative rheumatoid fa ctor 06/20/2016 Rheumatoid arthritis 06/07/2016 Overview (11/27/2017): ICD-10 update 2015 Other fdc (current) drug therapy 6 Gastro-esophageal reflux disease without esophag itis 03/07/2016 Hypothyroidism 03/07/2016 Encounters Date Type Department Care Team Description 12/06/2024 Orders Only [facility] [address] [place] [phone] Eliza Daly MD Rheumatoid arthritis 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 factor (HCC); Encounter for long-term (current) use of high-risk medication; Encounter for therapeutic drug level monitoring 12/04/2024 Refill [facility] [address] [place] [address] Eliza Daly MD Refill Request 11/11/2024 Telephone [facility] [address] [facility] [place] [phone] Eliza Daly MD Medication Prior Auth Request (Enbrel) 10/11/2024 Orders Only [facility] - [facility]ology [address] [place] [address] Eliza Daly MD Rheumatoid arthritis 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 factor; Encounter for long-term (current) use of high-risk medication; Encounter for therapeutic drug level monitoring from Last 3 Months Immunizations Immunization Administration Dates Next Due INFLUENZA VACCINE, TRIV. [...] drink = 0.6 oz pur e alcohol) Comments No Sex and Gender Information Value Date Recorded Sex Assigned at Not on file Legal Sex Female 5:18 PM RAW SHELLFISH PREPARER Gender Identity Not on file Sexual Orientation Not on file Last Filed Vital Signs Vital Sign Reading Time Taken Comments Blood Pressure 154/92 08/19/2024 12:42 PM RAW SHELLFISH PREPARER Pulse 74 08/19/2024 12:42 PM RAW SHELLFISH PREPARER Temperature 36.6 C (97.8 F) 08/19/2024 12:42 PM RAW SHELLFISH PREPARER Respiratory Rate 16 06/05/2023 12:42 PM CDT Oxygen Saturation 96% 08/19/2024 12:42 PM RAW SHELLFISH PREPARER Inhaled Oxygen Concentration - - Weight 58.7 kg (129 lb 6.4 oz) 08/19/2024 12:42 PM RAW SHELLFISH PREPARER Height 160 cm (5' 3 ) 06/05/2023 12:42 PM CDT Body Mass Index 22.92 06/05/2023 12:42 PM CDT Plan of Treatment Upcoming Encounters Date Type Department Care Team (Late st Contact Info) Description 01/06/2025 11:00 AM CDT Office Visit [facility] - Rheumatology [address] [place] [phone] Eliza Daly MD [address] [place] [phone] Health Maintenance Due Date Last Done Comments [...] of 2) 2023 COVID-19 VACCINE (1 - season) 2024 DEPRESSION SCREENING 08/28/2024 HEPATITIS C SCREENING Completed 03/25/2016 INFLUENZA VACCINE Completed 07/01/2024, , 06/21/2019, Additional history exists HIB VACCINE Aged Out No longer eligi ble based on patient's age to complete this topic HPV VACCINE Aged Out No longer eligi ble based on patient's age to complete this topic MENINGOCOCCAL (Group B) VACCINE SHARED DECISION-MAKING Aged Out No longer eligible based on patient's age to complete this topic MENINGOCOCCAL GROUPS A/C/Y/W VACCINE Aged Out No longer eligible based on patient's age to complete this topic Procedures Procedure Name Priority Date/Time Associated Diagnosis Comments HEPATITIS C ANTIBODY Routine 03/25/2016 4:37 PM CDT from Last 3 Months or Most Recently Relevant to Health Maintenance Results * HEPATITIS C ANTIBODY (03/25/2016 4:37 PM CDT) Hepatitis C Antibody Non-react ilan Non-reac tive [facility] Comment: Hepatitis C Antibody screen indicates [...] 4:37 PM CDT 03/25/2016 5:49 PM CDT us Eliza Daly MD LAB - CHEMISTRY GEO CASTRO Final Result [address] [phone] from Last 3 Months or Most Recently Relevant to Health Maintenance Insurance [address] [place] [address] [facility] Care Teams Metaphysics Teacher Relationship Specialty Start Date End Date Waldemar Fulton DO [address] [place] [address] PCP - General Internal Medicine 10/22/24
--- OUTSIDE RECORDS SUMMARY | 2024-12-17 11:58 | XMS_ITS | Clinical Summary ---
Author Organization [facility] Address [address] [place] [address] Phone Care Team Providers Care Network Contract Manager Name Role Phone RODERICK AMARO DO Primary Care Provider [phone] JESUS ALBERTO CHINCHILLA, PAULY Melendrez Unavailable [phone] Reason for Visit and Chief Complaint * PHONE CALL Problems Includes: Problems addressed during this encounter and other active Problems All Visits Onset Date Resolved Date Provider Condition S tatus Anemia 01/25/2019 YANY DANIELLE WHNP-BC Active Last Documented On 01/25/2019 10:52AM ; [facility] Note: secondary to menorrhagia - -2018 Rheumatoid Arthritis 07/08/2016 YANY DANIELLE WHNP-BC Active Last Documented On 6 9:01AM ; [facility] Hyperlipidemia 06/27/2014 YANY DANIELLE WHNP-BC Active Last Documented On 4 9:59AM ; [facility] Note: diet controlled Hypothyroidism 04/25/2011 YANY DANIELLE WHNP-BC Active Last Documented On 1 7:17AM ; [facility] Plan of Treatment [...] On 07/27/2018 8:50AM By DEEPAK NELSON ; [facility] PredniSONE 5MG Oral Tablet 07/27/2018 Provider: Diagnosis: Last Documented On 07/27/2018 8:51AM By DEEPAK NELSON ; [facility] Arava 10MG Oral Tablet 07/14/2017 Provider: Diagnosis: Last Documented On 07/14/2017 9:21AM By DEEPAK NELSON ; [facility] Levothyroxine Sodium 100 MCG Tablet 07/08/2016 Provi kymberly: Diagnosis: Last Documented On 07/08/2016 8:57AM By DEEPAK NELSON ; [facility] Meloxicam 15 MG Tablet 07/08/2016 Provider: Diagnosis: Last Documented On 07/08/2016 8:58AM By DEEPAK NELSON ; [facility] Hydroxychloroquine Sulfate 200 MG Tablet 07/08/2016 Provider: Diagnosis: Last Documented On 07/08/2016 8:59AM By DEEPAK NELSON ; [facility] Singulair 10 MG Tablet 07/03/2015 Provider: Diagnosis: Last Documented On 07/03/2015 8:59AM By DEEPAK NELSON ; [facility] Fluticasone Propionate 50 MCG/ACT NA SUSP 06/21/2013 Provider: Diagnosis: Last Documented On 06/21/2013 10:25AM By MAYA WAHL LPN ; [facility] raNITIdine HCl 300 MG OR CAPS 04/25/2011 Provider: Diagnosis: Last Documented On 04/25/2011 9:14AM By DEEPAK ENLSON ; [facility] Past Medications on file Diflucan 150 MG OR TABS 06/21/2013 - 07/21/2013 Provider: YANY VICTORIA Diagnosis: CANDIDAL VULVOVA GINITIS one po x 1 and rpt. in 3 days Last Documented On 3 10:54AM By YANY VICTORIA ; [facility] Macrobid 100 MG OR CAPS 06/21/2013 - 06/24/2013 Provid er: YANY VICTORIA Diagnosis: HEMATURIA NOS Last Documented On 3 10:53AM By YANY VICTORIA ; [facility] Diflucan 150 MG OR TABS 05/14/2012 - 06/13/2012 Provid er: YANY VICTORIA Diagnosis: take one dose po x 1 and december rpt. in 3 days. 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
--- OUTSIDE RECORDS SUMMARY | 2024-12-17 11:58 | XMS_ITS | Encounter Summary ---
Author Organization [facility] Address [address] [facility] [place] [address] Care Team Providers Care International Project Engineer Name Role Phone Waldemar Fulton Nestor COYNE Primary Care Provider [phone] Reason for Visit * Reason Onset Date Comments MEDICATION REFILL 07/02/2018 Encounter Details Date Type Department Care Team (Late Contact Info) Description 07/02/2018 Refill [facility] Medicine [address] [facility] [address] [place] [address] Madhav Alvarez DO [address] [facility] [address] [facility] [address] [place] [address] MEDICATION REFILL Social History Tobacco Use Types Packs/Day Years Used Date Smoking Tobacco: Never Smokeless Tobacco: Never Alcohol Use Standard Drinks/Week Comments No 0 (1 standard drink = 0.6 oz pur e alcohol) Comments No Sex and Gender Information Value Date Recorded Sex Assigned at Not on file Legal 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 Gender Identity Not on file Sexual Orientation Not on file documented as of this encounter Plan of Treatment Upcoming Encounters Date Type Department Care Team (Late st Contact Info) Description 01/06/2025 11:00 AM CDT Office Visit [facility] - [facility] [address] [place] [phone] Eliza Daly MD [address] [phone] documented as of this encounter Visit Diagnoses Not on filedocumented in this encounter Care Teams International Project Engineer Relationship Specialty Start Date End Date Waldemar Fulton DO [address] [facility] [address] [place] [address] PCP - General Internal Medicine 10/22/24 documented as of this encounter
--- OUTSIDE RECORDS SUMMARY | 2024-12-17 11:58 | XMS_ITS | Clinical Summary ---
Author Organization [facility] Address [address] [place] [address] Phone Care Team Providers Care Director Of Strategic Partnerships Name Role Phone RODERICK AMARO DO Primary Care Provider [phone] JESUS ALBERTO CHINCHILLA, PAULY Melendrez Unavailable [phone] Reason for Visit and Chief Complaint PELVIC W/TVT Problems Includes: Problems addressed during this encounter and other active Problems All Visits Onset Date Resolved Date Provider Condition S tatus Anemia 01/25/2019 YANY DANIELLE WHNP-BC Active Last Documented On 01/25/2019 10:52AM ; [facility] Note: secondary to menorrhagia - Rheumatoid Arthritis 07/08/2016 YANY DANIELLE WHNP-BC Active Last Documented On 6 9:01AM ; [facility] Hyperlipidemia 06/27/2014 YANY DANIELLE WHNP-BC Active Last Documented On 4 9:59AM ; [facility] Note: diet controlled Hypothyroidism 04/25/2011 YANY DANIELLE WHNP-BC Active Last Documented On 1 7:17AM ; [facility] Plan of Treatment No Plan of Treatment Recorded Assessments Includes: Assessments from this encounter No Assessments Recorded Medical Equipment - Implanted Devices Includes: Current Devices No Medical Equipment Recorded Medications Includes: Medications discussed during this encounter and other current Medications Current Medications (continue as prescribed) Lisinopril 10MG Oral Tablet 07/27/2018 Provider: Diagnosis: Last Documented On 07/27/2018 8:50AM By DEEPAK NELSON ; [facility] PredniSONE 5MG Oral Tablet 07/27/2018 Provider: Diagnosis: Last Documented On 07/27/2018 8:51AM By DEEPAK NELSON ; [facility] Arava 10MG Oral Tablet 07/14/2017 Provider: Diagnosis: Last Documented On 07/14/2017 9:21AM By DEEPAK NELSON ; [facility] Levothyroxine Sodium 100 MCG Tablet 07/08/2016 Provi kymberly: Diagnosis: Last Documented On 07/08/2016 8:57AM By DEEPAK NELSON ; [facility] Meloxicam 15 MG Tablet 07/08/2016 Provider: Diagnosis: Last Documented On 07/08/2016 8:58AM By DEEPAK NELSON ; [facility] Hydroxychloroquine Sulfate 200 MG Tablet 07/08/2016 Provider: Diagnosis: Last Documented On 07/08/2016 8:59AM By DEEPAK NELSON ; [facility] Singulair 10 MG Tablet 07/03/2015 Provider: Diagnosis: Last Documented On 07/03/2015 8:59AM By DEEPAK NELSON ; [facility] Fluticasone Propionate 50 MCG/ACT NA SUSP 06/21/2013 Provider: Diagnosis: Last Documented On 06/21/2013 10:25AM By MAYA WAHL LPN ; [facility] raNITIdine HCl 300 MG OR CAPS 04/25/2011 Provider: Diagnosis: Last Documented On 04/25/2011 9:14AM By DEEPAK NELSON ; [facility] Medications Administered Includes: Administered Medications from this [...] Active Last Documented On 7 9:20AM ; [facility] Encounters Encounter Provider Location Date Check-In Time Check-Out Time Diagnosis PELVIC W/TVT YANY DANIELLE WHNP-[facility] [employer] PARAPROFESSIONAL 9 9:02AM 9:45AM Insurance Includes: Active Insurance Policies Plan Name Member ID Group # Subscriber Relationship Effect ilan Dates 1 - [facility] CLAIMS DEPT [id number] KORI MUSTAFA Self Clinical Notes Includes: Clinical Notes from this encounter No Clinical Notes Recorded
--- OUTSIDE RECORDS SUMMARY | 2024-12-17 11:58 | XMS_ITS | Clinical Summary ---
Author Organization [facility] Address [address] [place] [address] Phone Care Team Providers Care Endband Cutter Hand Name Role Phone RODERICK AMARO DO Primary Care Provider [phone] JESUS ALBERTO CHINCHILLA, PAULY Melendrez Unavailable [phone] Reason for Visit and Chief Complaint PELVIC W/TVT Problems Includes: Problems addressed during this encounter and other active Problems All Visits Onset Date Resolved Date Provider Condition S tatus Anemia 01/25/2019 YANY DANIELLE WHNP-BC Active Last Documented On 01/25/2019 10:52AM ; [facility] Note: secondary to menorrhagia - Rheumatoid Arthritis 07/08/2016 YANY DANIELLE WHNP-BC Active Last Documented On 6 9:01AM ; [facility] Hyperlipidemia 06/27/2014 YANY DANIELLE WHNP-BC Active Last Documented On 4 9:59AM ; [facility] Note: diet controlled Hypothyroidism 04/25/2011 YANY DANIELLE WHNP-BC Active Last Documented On 1 7:17AM ; [facility] Plan of Treatment No Plan of Treatment Recorded Assessments Includes: Assessments from this encounter No Assessments Recorded Medical Equipment - Implanted Devices Includes: Current Devices No Medical Equipment Recorded Medications Includes: Medications discussed during this encounter and other current Medications Current Medications (continue as prescribed) Lisinopril 10MG Oral Tablet 07/27/2018 Provider: Diagnosis: Last Documented On 07/27/2018 8:50AM By DEEPAK NELSON ; [facility] PredniSONE 5MG Oral Tablet 07/27/2018 Provider: Diagnosis: Last Documented On 07/27/2018 8:51AM By DEEPAK NELSON ; [facility] Arava 10MG Oral Tablet 07/14/2017 Provider: Diagnosis: Last Documented On 07/14/2017 9:21AM By DEEPAK NELSON ; [facility] Levothyroxine Sodium 100 MCG Tablet 07/08/2016 Provi kymberly: Diagnosis: Last Documented On 07/08/2016 8:57AM By DEEPAK NELSON ; [facility] Meloxicam 15 MG Tablet 07/08/2016 Provider: Diagnosis: Last Documented On 07/08/2016 8:58AM By DEEPAK NELSON ; [facility] Hydroxychloroquine Sulfate 200 MG Tablet 07/08/2016 Provider: Diagnosis: Last Documented On 07/08/2016 8:59AM By DEEPAK NELSON ; [facility] Singulair 10 MG Tablet 07/03/2015 Provider: Diagnosis: Last Documented On 07/03/2015 8:59AM By DEEPAK NELSON ; [facility] Fluticasone Propionate 50 MCG/ACT NA SUSP 06/21/2013 Provider: Diagnosis: Last Documented On 06/21/2013 10:25AM By MAYA WAHL LPN ; [facility] raNITIdine HCl 300 MG OR CAPS 04/25/2011 Provider: Diagnosis: Last Documented On 04/25/2011 9:14AM By DEEPAK NELSON ; [facility] Past Medications on file Diflucan 150 MG OR TABS 06/21/2013 - 07/21/2013 Provider: YANY VICTORIA Diagnosis: CANDIDAL VULVOVA GINITIS one po x 1 and rpt. in 3 days Last Documented On 3 10:54AM By YANY VICTORIA ; [facility] Macrobid 100 MG OR CAPS 06/21/2013 - 06/24/2013 Provid er: YANY VICTORIA Diagnosis: HEMATURIA NOS Last Documented On 3 10:53AM By YANY VICTORIA ; [facility] Diflucan 150 MG OR TABS 05/14/2012 - 06/13/2012 Provid er: YANY VICTORIA Diagnosis: take one dose po x 1 and december rpt. in 3 days. Last Documented On 2 10:01AM By YANY VICTORIA ; [facility] Ortho-Cyclen (28) 0.25-35 MG-MCG OR TABS 04/25/2011 - 04/19/2012 Provider: YANY CERVANTES Diagnosis: Last Documented On 1 9:23AM By YANY VICTORIA ; [facility] Medications Administered Includes: Administered Medications [...] Active Last Documented On 7 9:20AM ; [facility] Encounters Encounter Provider Location Date Check-In Time Check-Out Time Diagnosis [facility]ELVIC W/TVT [facility] COMMUNICATION[facility] PLAN[facility] 9 8:43AM 9:00AM Insurance Includes: Active Insurance Policies Plan Name Member ID Group # Subscriber Relationship Effect ilan Dates 1 - [facility] CLAIMS DEPT [id number] KORI Moctezuma Clinical Notes Includes: Clinical Notes from this encounter No Clinical Notes Recorded
== END 2024-12-17 10:25 | disposition home or self-care (01) ==
PROVIDERS: PCP Internal Medicine; Visit Provider Internal Medicine
DX: Z12.31 Encounter for screening mammogram for malignant neoplasm of breast (principal)
CPT/HCPCS: 77063; 77067

== ENCOUNTER 2025-07-02 15:44 | Outpatient (CLI) | payer OTHER, SELFPAY ==
--- NOTE | ~2025-07-02 | XR_ITS ---
EXAMINATION: XR shoulder RT min 2V, 07/02/2025 15:47 LEGAL EXECUTIVE HISTORY: M25.519 - Pain in unspecified shoulder COMPARISON: No comparisons available. Findings: No acute fracture or malalignment. No significant degenerative changes. Soft tissues unremarkable. Impression: No acute fracture or malalignment. Reviewed, dictated and finalized at location P. L EXECUTIVE Impression: No acute fracture or malalignment.
--- NOTE | ~2025-07-02 | XR_ITS ---
EXAMINATION: XR humerus RT, 07/02/2025 15:47 CONVEYOR CONSOLE OPERATOR HISTORY: M79.603 - Pain in arm, unspecified COMPARISON: No comparisons available. Findings: No acute fracture or malalignment. No significant degenerative changes. Soft tissues unremarkable. Impression: No acute fracture or malalignment. Reviewed, dictated and finalized at location P. EYOR CONSOLE OPERATOR Impression: No acute fracture or malalignment.
--- OUTSIDE RECORDS SUMMARY | 2025-07-03 15:05 | XMS_ITS | Clinical Summary ---
Author Organization [facility] Address [address] [place] [address] Care Team Providers Care Detacher Name Role Phone Waldemar Fulton Nestor COYNE Primary Care Provider [phone] Source Comments [facility],non-owned Affiliates and Associated Physician Practices is amultiple site organization consisting of ambulatory clinics and hospital sitesin [place], [place], [place] and [place]. This disclosure is being madepursuant to the Care Everywhere program and may not contain all information available regarding this patient. Last updated 18.[facility] Allergies Active Allergy Reactions Criticality Noted Date Comments Codeine Other Low 03/07/2016 Stomach pain Lisinopril Swelling High 04/17/2025 Methotrexate Other Low 02/09/2017 Makes pt's hair fall out Medications * Be aware that medications may not be up to date on this document. Alwaysverify current medications with the patient. fluticasone propionate (FLONASE) 50 MCG/ACT nasal spray 2 (two) sprays DAILY 3 6 Active montelukast (SINGULAIR) 10 MG tablet 5 6 Active amLODIPine (NORVASC) 10 MG tablet Take 1 (one) tablet by mouth once daily 1 Active famotidine (PEPCID) 20 MG tablet TAKE 1 TABLET BY MOUTH TWICE DAILY NEEDED FOR REFLUX 1 Active metoprolol tartrate (LOPRESSOR) 50 MG tablet Take 1 (one) tablet by mouth every 12 hours 1 Active DULoxetine (Cymbalta) 20 MG capsule Take 1 (one) capsule by mouth once daily 5 Active Adalimumab-ryv k (Simlandi, 2 Pen,) 40 MG/0.4ML AJKTIndication s:Rheumatoid arthritis 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 factor (HCC) Inject 40 mg subcutaneously every 14 days 2 Each 5 Active traMADol (Ultram) 50 MG tablet Take by mouth every 4 hours as needed 5 Active levothyroxine (Synthroid) 100 MCG tablet Take 1 (one) tablet by mouth once daily 5 Active leflunomide (Arava) 20 MG tablet Take 1 (one) tablet by mouth once daily 90 tablet 1 5 Active sulfaSALAzine EC (Azulfidine Entab) 500 MG tablet Take 3 (three) tablets by mouth 2 times daily 540 tablet 1 5 Active predniSONE (Deltasone) 5 MG tablet Take 1 (one) tablet by mouth once daily 30 tablet 1 5 Active meloxicam (Mobic) 15 MG tablet Take 1 (one) tablet by mouth once daily 30 tablet 5 5 Active Active Problems Problem Noted Date Diagnosed Date Encounter for long-term (cur rent) use of high-risk medication 06/12/2018 Encounter for therapeutic drug level monitoring 02/07/2017 Rheumatoid arthritis with negative rheumatoid fa ctor 06/20/2016 Rheumatoid arthritis 06/07/2016 Overview (11/27/2017): ICD-10 update 2015 Other half-way (current) drug therapy 6 Gastro-esophageal reflux disease without esophag itis 03/07/2016 Hypothyroidism 03/07/2016 Encounters Date Type Department Care Team Description 05/26/2025 1:40 PM CDT Office Visit [facility] - [place] [address] Eliza Daly MD Rheumatoid arthritis 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 factor (HCC) (Primary Dx); Encounter for long-term (current) use of high-risk medication; Encounter for therapeutic drug level monitoring 05/26/2025 Travel 05/13/2025 Telephone [facility] - [place] [phone] Eliza Daly MD Pain 04/29/2025 Telephone [facility] - Rheumatology [facility] [phone] Eliza Daly MD Medication Problem 04/25/2025 Telephone [facility] - Rheumatology [facility] [place] [address] Eliza Daly MD Medication Problem 04/25/2025 Orders Only [facility] - Rheumatology [facility] [place] [address] Eliza Daly MD Rheumatoid arthritis 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 factor (HCC); Encounter for long-term (current) use of high-risk medication; Encounter for therapeutic drug level monitoring 04/24/2025 Telephone [facility] - Rheumatology [facility] [place] [address] Eliza Daly MD Care Management 04/15/2025 Travel 04/10/2025 Travel from Last 3 Months Immunizations Immunization Administration [...] on file Legal Sex Female 5:18 PM PRISON OFFICER Gender Identity Not on file Sexual Orientation Not on file Last Filed Vital Signs Vital Sign Reading Time Taken Comments Blood Pressure 150/90 05/26/2025 1:32 PM CDT Pulse 63 05/26/2025 1:32 PM CDT Temperature 36.7 C (98 F) 05/26/2025 1:32 PM CDT Respiratory Rate 16 06/05/2023 12:42 PM CDT Oxygen Saturation 99% 05/26/2025 1:32 PM CDT Inhaled Oxygen Concentration - - Weight 56.3 kg (124 lb 3.2 oz) 05/26/2025 1:32 P M CDT Height 160 cm (5' 3) 06/05/2023 12:42 PM CDT Body Mass Index 22 06/05/2023 12:42 PM CDT Plan of Treatment Upcoming Encounters Date Type Department Care Team (Late st Contact Info) Description 09/29/2025 1:00 PM PRISON OFFICER Office Visit [facility] - Rheumatology [address] [place] [address] Eliza Daly MD [address] [phone] Health Maintenance Due Date Last Done Comments COLOGUARD (AGES 45-75) - COLON CA SCREENING 1973 COLON MONITORING 1973 COLONOSCOPY - COLON CA SCREENING 1973 CT COLONOGRAPHY - COLON CA SCREENING 1973 Colorectal Cancer Screening 1973 FIT - COLON CA SCREENING 1973 FLEX SIG - COLON CA SCREENING 1973 LIPID TESTING 1973 MAMMOGRAM 1973 HIV SCREENING 1988 DTAP/TDAP/TD VACCINES (1 - Tdap) 1992 HEPATITIS B VACCINE (1 of 3 - 19+ 3-dose series) 1992 PAP SMEAR 1994 PNEUMOCOCCAL VACCINE 50+ (1 of 1 - PCV) 2023 ZOSTER VACCINE (1 of 2) 2023 DEPRESSION SCREENING 08/28/2024 COVID-19 VACCINE (1 - season) 2025 INFLUENZA VACCINE (#1) 2025 , 08/01/2022, 06/21/2019, Additional history exists HEPATITIS C SCREENING Completed 03/25/2016 HIB VACCINE Aged Out No longer eligi [...] Procedure Name Priority Date/Time Associated Diagnosis Comments URINALYSIS W/MICROSCOPIC REFLEX TO CULTURE Routine 05/01/2025 9:45 AM CDT Rheumatoid arthritis 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 factor (HCC) Encounter for long-term (current) use of high-risk medication Encounter for therapeutic drug level monitoring ERYTHROCYTE SEDIMENTATION RATE Routine 05/01/2025 9:45 AM CDT Rheumatoid arthritis 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 factor (HCC) Encounter for long-term (current) use of high-risk medication Encounter for therapeutic drug level monitoring C-REACTIVE PROTEIN Routine 05/01/2025 9: 45 AM CDT Rheumatoid arthritis 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 factor (HCC) Encounter for long-term (current) use of high-risk medication Encounter for therapeutic drug level monitoring COMPREHENSIVE METABOLIC PANEL Routine 05/01/2025 9:45 AM CDT Rheumatoid arthritis 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 factor (HCC) Encounter for long-term (current) use of high-risk medication Encounter for therapeutic drug level monitoring CBC W AUTO DIFFERENTIAL Routine 05/01/2025 9:45 AM CDT Rheumatoid arthritis 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 factor (HCC) Encounter for long-term (current) use of high-risk medication Encounter for therapeutic drug level monitoring CULTURE URINE 05/01/2025 9:45 AM CDT CULTURE URINE REFLEXED II 05/01/2025 9:45 AM CDT HEPATITIS C ANTIBODY Routine 03/25/2016 4:37 PM CDT from Last 3 Months or Most Recently Relevant to Health Maintenance Results * CULTURE URINE REFLEXED II (05/01/2025 9:45 AM CDT) Reflexive Urine Culture See Below [facility] Comment: CULTURE INDICATED - RESULTS TO FOLLOW Test Performed at: [address] [address] GONSALO SPIVEY MD 05/01/2025 9:45 AM CDT 05/01/2025 9:45 AM CDT us Eliza Daly MD LAB - MICROBIOLOGY ORD ERABLES Final Result [address] [address] * (ABNORMAL) URINALYSIS W/MICROSCOPIC REFLEX TO CULTURE (05/01/2025 9:45 AM CDT) Color UA DARK YELLOW YELLOW [facility] Appearance CLEAR CLEAR [facility] Specific [place] UA 1.024 1.001 - 1.035 [facility] pH UA 6.5 5.0 - 8.0 [facility] Glucose UA NEGATIVE NEGATIVE [facility] Bilirubin UA NEGATIVE NEGATIVE [facility] Ketone UA NEGATIVE NEGATIVE [facility] Blood UA NEGATIVE NEGATIVE [facility] Protein UA NEGATIVE NEGATIVE [facility] Nitrite NEGATIVE NEGATIVE [facility] Leukocyte Esterase 1+(A) NEGATIVE [facility] WBC UA NONE SEEN < [...] elements seen were reported. Test Performed at: [address] [address] GONSALO SPIVEY MD Urine MID-STREAM URINE SPECIMEN / Unknown 05/01/2025 9:45 AM CDT 05/01/2025 9:45 AM CDT us Eliza Dayl MD LAB - URINALYSIS ORDER TIM Final Result Performing Organization Address [facility] Co de Phone Number [address] [address] * (ABNORMAL) C-REACTIVE PROTEIN (05/01/2025 9:45 AM CDT) Pathologist [facility] C-Reactive Protein 42.1(H) <8.0 mg/L [facility] Comment: Test Performed at: [email or web address] [address] GONSALO SPIVEY MD Blood BLOOD SPECIMEN / Unknown 05/01/2025 9:45 AM CDT 05/01/2025 9:45 AM CDT Eliza Daly MD LAB - CHEMISTRY ORDERA BLES Final Result Performing Organization Address [facility] Co de Phone Number [place] [phone] * CULTURE URINE (05/01/2025 9:45 AM CDT) [facility] Culture [facility] Comment: CULTURE, URINE, ROUTINE Micro Number: [id number] Test Status: Final Specimen Source: Urine Specimen Quality: Adequate Result: No Growth Test Performed at: [email or web address] [address] GONSALO SPIVEY MD 05/01/2025 9:45 AM CDT 05/01/2025 9:45 AM CDT Eliza Daly MD LAB - MICROBIOLOGY ORD ERABLES Final Result Performing Organization Address City/[facility] Co de Phone Number [address] [address] * (ABNORMAL) ERYTHROCYTE SEDIMENTATION RATE (05/01/2025 9:45 AM CDT) [facility] Erythrocyte Sedimentation Rate Westergren 46(H) < OR = 30 mm/h [facility] Comment: Test Performed at: [email or web address] [address] GONSALO SPIVEY MD Blood BLOOD SPECIMEN / Unknown 05/01/2025 9:45 AM CDT 05/01/2025 9:45 AM CDT Eliza Daly MD LAB - HEMATOLOGY ORDER TIM Final Result [address] [address] * (ABNORMAL) CBC WITH DIFFERENTIAL (05/01/2025 9:45 AM CDT) White Blood Cell Count 8.5 3.8 - 10.8 Thousand/ uL [facility] RBC 4.00 3.80 - 5.10 Million/u L [facility] Hemoglobin 11.1(L) 11.7 - 15.5 g/dL [facility] Hematocrit 35.6 35.0 - 45.0 % [facility] MCV 89.0 80.0 - 100.0 fL [facility] MCH 27.8 27.0 - 33.0 pg [facility] MCHC 31.2(L) 32.0 - 36.0 g/dL [facility] Comment: For adults, a slight decrease in the calculated MCHC value (in the range of 30 to 32 g/dL) is most likely not clinically significant; however, it should be interpreted with caution in correlation with other red cell parameters and the patient's clinical condition. RDW 12.5 11.0 - 15.0 % [facility] Platelet Count 358 140 - 400 Thousand/ uL [facility] MPV 9.7 7.5 - 12.5 fL [facility] Neutrophil Absolute 6664 1500 - 7800 cells/uL [facility] Lymphocytes Absolute 918 850 - 3900 cells/uL [facility] Absolute Monocytes 765 200 - 950 cells/uL [facility] Eosinophils Absolute 94 15 - 500 cells/uL [facility] Basophils Absolute 60 0 - 200 cells/uL [facility] Granulocytes % 78.4 % [facility] Lymphocytes % 10.8 % [facility] Monocytes % 9.0 % [facility] Eosinophils % 1.1 % [facility] Basophils % 0.7 % [facility] Comment: Test Performed at: [email or web address] [address] GONSALO SPIVEY MD Blood BLOOD SPECIMEN / Unknown 05/01/2025 9:45 AM CDT 05/01/2025 9:45 AM CDT Eliza Daly MD LAB - HEMATOLOGY ORDER TIM Final Result Performing Organization Address [facility]/ZIP Co de Phone Number [address] [address] * COMPREHENSIVE METABOLIC PANEL (05/01/2025 9:45 AM CDT) [facility] Glucose 86 65 - 99 mg/dL [facility] Comment: Fasting reference interval BUN 12 7 - 25 mg/dL [facility] Creatinine 0.71 0.50 - 1.03 mg/dL [facility] eGFR by Cystatin C 103 > OR = 60 mL/min/1. 73m2 [facility] BUN/Creatinine Ratio SEE NOTE: 6 - (calc) [facility] Comment: Not Reported: BUN and Creatinine are within reference range. Sodium 138 135 - 146 mmol/L [facility] Potassium 3.9 3.5 - 5.3 mmol/L [facility] Chloride 102 98 - 110 mmol/L [facility] CO2 27 20 - 32 mmol/L [facility] Calcium 9.0 8.6 - 10.4 mg/dL [facility] Protein Total 6.8 6.1 - 8.1 g/dL [facility] Albumin 3.6 3.6 - 5.1 g/dL [facility] Globulin Total 3.2 1.9 - 3.7 g/dL (calc) [facility] Albumin/Globulin Ratio 1.1 1.0 - 2.5 (calc) [facility] Bilirubin Total 0.8 0.2 - 1.2 mg/dL [facility] Alkaline Phosphatase 91 37 - 153 U/L [facility] AST 12 10 - 35 U/L [facility] ALT 8 6 - 29 U/L [facility] Comment: Test Performed at: [email or web address] [address] GONSALO SPIVEY MD Blood BLOOD SPECIMEN / Unknown 05/01/2025 9:45 AM CDT 05/01/2025 9:45 AM CDT Eliza Daly MD LAB - CHEMISTRY ORDERA BLES Final Result Performing Organization Address [facility] Co de Phone Number [facility] [address] [place] [address] * HEPATITIS C ANTIBODY (03/25/2016 4:37 PM CDT) [facility] Hepatitis C Antibody [facility] Comment: Hepatitis C Antibody screen [...] PM CDT Eliza Daly MD LAB - CHEMISTRY GEO CASTRO Final Result [address] [phone] from Last 3 Months or Most Recently Relevant to Health Maintenance Insurance [facility] Care Teams Detacher Relationship Specialty Start Date End Date Waldemar Fulton DO [address] [place] [address] PCP - General Internal Medicine 10/22/24
--- OUTSIDE RECORDS SUMMARY | 2025-07-03 15:05 | XMS_ITS | Clinical Summary ---
Author Organization [facility] Address [address] [place] [phone] Care Team Providers Care Caustic Loader Name Role Phone Waldemar Fulton DO Primary Care Provider [phone] Encounters Date Type Department Care Team Description 04/10/2025 4:42 PM CDT - 04/10/2025 11:59 PM CDT Hospital Encounter [facility] [address] [place] [id number] Hand swelling Discharge Disposition: Discharge to home or self care from Last 3 Months Social History Tobacco Use Types Packs/Day Years Used Date Smoking Tobacco: Never Assessed Comments Unknown Sex and Gender Information Value Date Recorded Sex Assigned at Not on file Legal 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:47 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 Gender Identity Not on file Sexual Orientation Not on file Plan of Treatment Health Maintenance Due Date Last Done Comments Breast Cancer Screening-Mammogram 1973 Cervical Cancer Screening 1973 Colon Cancer Screening-Colonoscopy 1973 Depression Screening 1973 Hepatitis C Screening 1973 DTaP/Tdap/Td Vaccine (1 - Tdap) 1984 Hepatitis B Screening 1991 Regular Well Visit/Exam 18-64 1991 Zoster Vaccine (1 of 2) 2023 Influenza Vaccine (#1) 2025 2, 06/21/2019, 06/28/2016 Pneumococcal vaccine <65 Aged Out No longer eligible based on patient's age to complete this topic Procedures Procedure Name Priority Date/Time Associated Diagnosis Comments XR HAND BILATERAL 3 OR MORE VIEWS OF EACH Schedule Routine, Read Routine (OP Routine) 04/10/2025 4:52 PM CDT Hand swelling from Last 3 Months Results * XR Hand Bilateral 3 or More Views of Each (04/10/2025 4:52 PM CDT) Anatomical Region Laterality Modality Upper Extremities, Hand Computed Radiography 04/21/2025 10:1 3 AM CDT Narrative 04/21/2025 10:15 AM CDT EXAM DESCRIPTION: 1. XR HAND BILATERAL 3 OR MORE VIEWS OF EACH REASON FOR STUDY: pain Bilateral hand pain, aching, and swelling x1 month. Pt states the right hand is worse than the left FINDINGS: Three views submitted without comparison. Left hand: Severe left basal thumb joint osteoarthritis with chronic remodeling and proximal subluxation of the 1st metacarpal base. Soft tissue swelling is present about the wrist. Mild radiocarpal and interphalangeal joint osteoarthritis. Right hand: Severe right basal thumb joint osteoarthritis with proximal subluxation of the 1st metacarpal base and chronic remodeling. Mild radiocarpal and severe capitate lunate joint osteoarthritis. Soft tissue swelling about the wrist. Mild interphalangeal joint osteoarthritis. IMPRESSION: 1. 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 2. Additional is mild bilateral hand and wrist osteoarthritis. 3. Peteo-gixghrh-vjay-left bilateral wrist soft tissue swelling. THIS IS AN ELECTRONICALLY VERIFIED FINAL REPORT 04/21/2025 10:15 AM - Electronically signed by Moreno Yost M.D. MF: [email or web address] Report ID: [id number] Reading Location: [id number] Procedure Note Moreno Yost MD - 04/21/2025 EXAM DESCRIPTION: 1. XR HAND BILATERAL 3 OR MORE VIEWS OF EACH REASON FOR STUDY: pain Bilateral hand pain, aching, and swelling x1 month. Pt states the righthand is worse than the left FINDINGS: Three views submitted without comparison. Left hand: Severe left basal thumb joint osteoarthritis with chronic remodeling and proximal subluxation of the 1st metacarpal base. Soft tissue swelling is present about the wrist. Mild radiocarpal and interphalangeal joint osteoarthritis. Right hand: Severe right basal thumb joint osteoarthritis with proximal subluxation ofthe 1st metacarpal base and chronic remodeling. Mild radiocarpal and severe capitate lunate joint osteoarthritis. Soft tissue swelling about thewrist. Mild interphalangeal joint osteoarthritis. IMPRESSION: 1. Severe bilateral basal thumb joint osteoarthritis with chronicremodeling and proximal subluxation of the 1st metacarpal bases. 2. Additional is mild bilateral hand and wrist osteoarthritis. 3. Gdulf-dkpmwfk-gess-left bilateral wrist soft tissue swelling. THIS IS AN ELECTRONICALLY VERIFIED FINAL REPORT 04/21/2025 10:15 AM - Electronically signed by Moreno Yost M.D. MF: [email or web address] Report ID: [id number] Reading Location: [place] [address] Waldemar Fulton DO IMG XR PROCEDURES Final Result from Last 3 Months Insurance [facility] Care Teams Caustic Loader Relationship Specialty Start Date End Date Waldemar Fulton DO PCP - General Internal Medicine 04/10/25
--- OUTSIDE RECORDS SUMMARY | 2025-07-03 15:05 | XMS_ITS | Clinical Summary ---
Author Organization [facility] Address [address] [place] [address] Care Team Providers Care Piano Player Name Role Phone Waldemar Fulton DO Primary Care Provider [phone] Encounters Date Type Department Care Team Description 04/10/2025 Travel from Last 3 Months Social History Tobacco Use Types Packs/Day Years Used Date Smoking Tobacco: Never Assessed Comments Unknown Sex and Gender Information Value Date Recorded Sex Assigned at Female 04/10/2025 4:06 PM CDT Legal 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:03 PM CDT Gender Identity Not on file Sexual Orientation Not on file Plan of Treatment Health Maintenance Due Date Last Done Comments Cervical Cancer Screening Pa p Smear (Age 30 to 64) Every 3 Years 1973 Colorectal Cancer Screening Colonoscopy (10 Years) 1973 Annual Physical 1976 Hepatitis C 1991 DTaP, Tdap and Td Vaccines ( 1 - Tdap) 1992 Hepatitis B Vaccines (1 of 3 - 19+ 3-dose series) 1992 Cervical Cancer Screening Pa p with HPV Testing (Age 30 to 64) Every 5 Years 2003 Cervical Cancer Screening with HPV 2003 Mammogram Screening 2013 Pneumococcal Vaccine: 50+ Ye ars (1 of 1 - PCV) 2023 Zoster Vaccines (1 of 2) 2023 COVID-19 Vaccine ( - 2024-2 6 season) 2025 Influenza Adult (#1) 2025 Hepatitis A Vaccines Aged Out No long er eligible based on patient's age to complete this topic Meningococcal B Vaccine Aged Out No l onger eligible based on patient's age to complete this topic Meningococcal Vaccine Aged Out No aris mackenzie eligible based on patient's age to complete this topic RSV Immunizations Under 20 Months Aged Out No longer eligible based on patient's age to complete this topic Care Teams Piano Player Relationship Specialty Start Date End Date Waldemar Fulton DO [address] [address] PCP - General INTERNAL MEDICINE 04/10/25
--- OUTSIDE RECORDS SUMMARY | 2025-07-03 15:05 | XMS_ITS | Encounter Summary ---
Author Organization [facility] Address [address] [facility] [place] [address] Care Team Providers Care Library Director Name Role Phone Waldemar Fulton Primary Care Provider [phone] Reason for Visit * Reason Onset Date Comments MEDICATION REFILL 07/02/2018 Encounter Details Date Type Department Care Team (Late Contact Info) Description 07/02/2018 Refill [facility] General Internal Medicine [address] [facility] [address] [place] [address] Madhav Alvarez DO [address] [facility] [address] [facility] [address] [place] [address] MEDICATION REFILL Social History Tobacco Use Types Packs/Day Years Used Date Smoking Tobacco: Never Smokeless Tobacco: Never Alcohol Use Standard Drinks/Week Comments No 0 (1 standard drink = 0.6 oz pur e alcohol) Comments No Sex and Gender Information Value Date Recorded Sex Assigned at Not on file Legal 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 Gender Identity Not on file Sexual Orientation Not on file documented as of this encounter Plan of Treatment Upcoming Encounters Date Type Department Care Team (Late Contact Info) Description 09/29/2025 1:00 PM SUBWAY OPERATOR Office Visit [facility] - [place] [place] [phone] Eliza Daly MD [address] [place] [phone] documented as of this encounter Visit Diagnoses Not on filedocumented in this encounter Care Teams Library Director Relationship Specialty Start Date End Date Waldemar Fulton DO [address] [facility] [address] [place] [address] PCP - General Internal Medicine 10/22/24 documented as of this encounter
== END 2025-07-02 15:45 | disposition home or self-care (01) ==
PROVIDERS: PCP Internal Medicine; Visit Provider Internal Medicine
DX: M25.511 Pain in right shoulder (principal); M79.621 Pain in right upper arm
CPT/HCPCS: 73030; 73060